=== PATIENT | female | born 1955 | race Caucasian/White ===

== ENCOUNTER 2019-12-17 13:15 | Outpatient (CLI) | payer BC, SELFPAY ==
--- NOTE | 2019-12-17 13:20 | MM_ITS ---
WS: [id number] BILATERAL DIGITAL SCREENING MAMMOGRAPHY WITH CAD CLINICAL INFORMATION: SCREENING HISTORY: Screening mammogram. No current complaints. COMPARISON: TECHNIQUE: Bilateral CC and MLO views. FINDINGS: Scattered fibroglandular densities bilaterally. No suspicious focal mass, asymmetry, calcifications, or architectural distortion. No evidence of malignancy. Vascular calcification. Punctate and lucent c entered calcifications. Secretory calcifications. MM/[id number] IMPRESSION: BI-RADS: 2-Benign FOLLOW UP: 1 Year Follow-up Recommend return to annual screening mammography.
== END 2019-12-17 13:16 | disposition home or self-care (01) ==
LOC: RADSHAW 13:19
PROVIDERS: PCP Family Medicine; Visit Provider Family Medicine
DX: Z12.31 Encounter for screening mammogram for malignant neoplasm of breast (principal)
CPT/HCPCS: 77067

== ENCOUNTER 2020-12-27 12:28 | Outpatient (CLI) | payer MEDICARE, SELFPAY ==
--- NOTE | 2020-12-27 13:14 | MM_ITS ---
WS: [id number] BILATERAL DIGITAL SCREENING MAMMOGRAPHY WITH CAD CLINICAL INFORMATION: SCREENING HISTORY: Screening mammogram. No current complaints. COMPARISON: December 17, 2019 TECHNIQUE: Bilateral CC and MLO views. FINDINGS: Scattered fibroglandular densities bilaterally. No suspicious focal mass, asymmetry, calcifications, or architectural distortion. No evidence of malignancy. Punctate and lucent centered calcifications. Secretory calcifications. MM/[id number] IMPRESSION: BI-RADS: 2-Benign FOLLOW UP: 1 Year Follow-up Recommend return to annual screening mammography.
== END 2020-12-27 12:29 | disposition home or self-care (01) ==
PROVIDERS: PCP Family Medicine; Visit Provider Family Medicine
DX: Z12.31 Encounter for screening mammogram for malignant neoplasm of breast (principal)
CPT/HCPCS: 77067

== ENCOUNTER 2021-05-02 12:46 | Outpatient (CLI) | payer MEDICARE, SELFPAY ==
--- NOTE | 2021-05-02 12:55 | CT_ITS ---
WS: [id number] CT ABDOMEN AND PELVIS WITH CONTRAST HISTORY: ENDOMETRIAL CANCER, abdominal pain. TECHNIQUE: Imaging performed of the abdomen and pelvis with IV contrast. Single phase imaging of the abdomen. Coronal and sagittal reformats are submitted. All CT scans at [facility] use at [address] one of these dose optimization techniques: automated exposure control; mA and/or kV adjustment per patient size (includes targeted exams where dose is matched to clinical indication); or iterative re construction. IV CONTRAST: Visipaque 320; 95 mL IV. Oral contrast: Yes. DLP: 1099.44 mGycm COMPARISON: 07/21/2015 Lower thorax: Very mild scattered groundglass opacifications at the lung bases. Heart is normal size. Small hiatal hernia. Liver/biliary system: Normal size liver. 3 mm hypodensity in the RIGHT lobe of the liver is too small to characterize. Gallbladder: Normal. No gallstones or wall thickening. No pericholecystic fluid. Normal portal vein. Pancreas: Normal size pancreas and pancreatic duct. No adjacent inflammation. Spleen: Normal size spleen. No mass or infarct. Adrenal glands: Normal. Right kidney: Normal. Left kidney: Normal size kidney. Cortical hypodensity upper pole. No obstruction. Aorta: Mild atherosclerosis with no aneurysm. Lymphadenopathy: Very small retroperitoneal lymph nodes. Similar to the prior examination. Free fluid: None. GI tract: Prior appendectomy. No GI tract obstruction. Mild diffuse fecal retention throughout the co kathrine. Abdominal wall: Fat containing umbilical hernia. Pelvis: Prior hysterectomy. No free fluid or adenopathy. No pelvic mass. Bones: Unremarkable. CT/CT abdomen pelvis w con* [id number] IMPRESSION: 1. No ascites or adenopathy within the abdomen or pelvis. 2. Prior hysterectomy and appendectomy. 3. Mild diffuse constipation. 4. Very mild groundglass attenuation at the lung bases probably due to pneumon itis.
[2021-05-02 14:43] LABS: Blood Urea Nitrogen 12 mg/dL (8-23); Glomerular Filtration Rate 55.6 mL/min (90-130)
[2021-05-02] MEDS: iodixanol 320 mg/mL 100mL Btl IV (15:48)
[2021-05-02] MEDS: iohexol 300 mg/mL 50 mL Btl PO (15:49)
== END 2021-05-02 12:47 | disposition home or self-care (01) ==
PROVIDERS: PCP Family Medicine; Visit Provider Family Medicine
DX: C54.1 Malignant neoplasm of endometrium (principal); R10.9 Unspecified abdominal pain; Z90.710 Acquired absence of both cervix and uterus; Q42.8 Congenital absence, atresia and stenosis of other parts of large intestine; K59.00 Constipation, unspecified
CPT/HCPCS: 74177; 82565; 84520; Q9967

== ENCOUNTER 2021-06-02 18:08 | Emergency (ER) | payer MEDICARE, SELFPAY ==
[2021-06-02 18:36] VITALS: BP 126/75; PULSE 86; RESP 20; TEMP 37.2; O2SAT 90
--- NOTE | 2021-06-02 18:53 | XRR_ITS ---
PROCEDURE INFORMATION: Exam: XR Chest Exam date and time: 06/02/2021 6:53 PM Age: 65 years old Clinical indication: Shortness of breath; Additional info: Covid+, SOB TECHNIQUE: Imaging protocol: XR of the chest. Views: 1 view. COMPARISON: CT abdomen pelvis w con* [id number] 05/02/2021 2:42 PM FINDINGS: Lungs: Patchy ground-glass opacities have developed in both lung bases, left greater than right. Calcified granuloma in the right mid lung. Pleural spaces: Unremarkable. No pleural effusion. No pneumothorax. Heart/Mediastinum: Unremarkable. No cardiomegaly. Bones/joints: Unremarkable. XR/XR chest 1V portable [id number] IMPRESSION: 1. Multilobar pneumonia, left greater than right.
--- NOTE | 2021-06-02 18:58 | W.ED.COVID ---
Documented by User: CHARISMA Packer 06/02/21 19:00 HPI - COVID General: Chief Complaint: COVID symptoms Stated Complaint: Sent from Time Seen by Provider: 06/02/21 20:13 Triage information: Has fever, cough or shortness of breath. Exposure to COVID + person last 14 days History of Present Illness: HPI Narrative: Patient with positive Covid test at home. Seen Dr. Romero's office today sent over for chest x-ray and evaluation make sure she did have pneumonia. Patient request infusion if possible. Denies any other problems. Sats have been 88 to 90% at home. COVID Results: No Data to Display Course Vital Signs: Vital signs: Vital Signs Temperature 98.9 F 06/02/21 18:36 Pulse Rate 78 06/02/21 22:53 Respiratory Rate 24 H 06/02/21 22:53 Blood Pressure 120/78 06/02/21 22:53 Pulse Oximetry 89 L 06/02/21 22:53 MDM - COVID Lab Data: Labs: Lab Results 06/02/21 06/02/21 06/02/21 21:30 21:30 22:35 WBC 6.0 10^3/uL 10^3/ uL (4.0-10.0) RBC 4.51 10^6/uL 10^6 /uL (4.1-5.3) Hgb 13.4 g/dL g/dL (11.5-15.3) Hct 40.4 % % (37.0-47.0) MCV 89.6 fl fl (81-99) MCH 29.7 pg pg (28.0-34.0) MCHC 33.2 g/dL g/dL (30.0-36.0) RDW 12.8 % % (12.1-15.1) Plt Count 154 10^3/cmm 10^3 /cmm (130-400) MPV 8.8 fL fL (7.4-10.4) Neut % (Auto) 70.1 % % Lymph % (Auto) 19.3 % % Christian % (Auto) 7.5 % % Eos % (Auto) 2.5 % % Baso % (Auto) 0.3 % % Neut # (Auto) 4.18 10^3/uL 10^3 /uL (1.8-7.7) Lymph # (Auto) 1.2 10^3/uL 10^3/ uL (0.8-4.8) Christian # (Auto) 0.5 10^3/uL 10^3/ uL (0.2-0.9) Eos # (Auto) 0.2 10^3/uL 10^3/ uL (0.0-0.8) Baso # (Auto) 0.0 10^3/uL 10^3/ uL (0.0-0.1) Nucleated RBC % (a uto) 0 % % Nucleated RBCs # 0.0 /100WBC /100W BC Sodium 131 mmol/L L mmol /L (136-145) Potassium 4.8 mmol/L mmol/L (3.5-5.1) Chloride 96 mmol/L L mmol/ L (98-107) Carbon Dioxide 19 mmol/L L mmol/ L (22-29) Anion Gap 20.8 H (5-19) BUN 26 mg/dL H mg/dL (8-23) Creatinine 1.1 mg/dL H mg/dL (0.5-0.9) GFR Calculation 49.8 mL/min L mL/ min (90-130) Glucose 176 mg/dL H mg/dL (65-115) Calculated Osmolal ity 281 mOsm/kg L mOs m/kg (285-295) Lactic Acid 1.5 mmol/L mmol/L (0.5-2.2) Calcium 8.2 mg/dL L mg/dL (8.5-10.5) Total Bilirubin 0.3 mg/dL mg/dL (0.15-1.2) AST 50 U/L H U/L (0-32) ALT 40 U/L H U/L (0-33) Alkaline Phosphata se 52 IU/L IU/L (35-105) C-Reactive Protein 88.6 mg/L H mg/L (0.0-4.9) NT-Pro-B Natriuret Pep 140 pg/mL H pg/mL (0-125) Total Protein 6.9 g/dL g/dL (6.6-8.7) Albumin 3.4 g/dL L g/dL (3.5-5.2) Globulin 3.5 g/dL g/dL (1.3-4.6) COVID Results: No Data to Display Discharge Plan Discharge Patient Disposition: Home Clinical Impression: COVID-19 Condition: Stable Prescriptions: New albuterol sulfate 90 mcg/actuation HFA aerosol inhaler 2 inh INHALATION Q6H PRN (Reason: shortness of breath or wheezing) Qty: 8 RF: 0 Discharge Orders: Discharge ED (Routine); Ordered 06/02/21 Ordered By: Joel Levine Other Ambulatory Orders: DME: Oxygen (Order) Location: None Selected Ordered By: Joel Levine Referrals: Anthony Hugo MD [Primary Care Provider] - 1-3 days Discharge Diet: Advance as tolerated Discharge Activity: Resume usual activity Patient Instructions: COVID-19 (Coronavirus Disease 2019) (ED) Coding Level of Care Code ED Dope Dry House Operator for Chg Fwd Exam Comprehensive Documented by User: Joel Levine MD 06/02/21 22:59 HPI - COVID General: Chief Complaint: COVID symptoms Stated Complaint: Sent from Time Seen by Provider: 06/02/21 20:13 History of Present Illness: HPI Narrative: 65-year-old female has had cough congestion body aches over the last week. She states she been exposed to multiple people with Covid did test positive for Covid today at her PCPs office she states she has been having increasing dyspnea along with some borderline oxygen saturations in the upper 80s on room air denies any vomiting diarrhea denies any pain. COVID 19 common symptoms: positive fever(s), chills, non-productive cough, dyspnea and body aches; negative headache(s), throat pain, nausea, vomiting or diarrhea COVID 19 other sytmptoms: negative chest pain COVID Results: No Data to Display Review of Systems Const: Reports: fever(s), chills and body aches; Denies: change in appetite Eyes: Denies: blurry vision or eye discomfort ENMT: Denies: throat pain or dental pain Card: Denies: chest pain Resp: Reports: dyspnea and non-productive cough GI: Denies: abdominal pain, nausea, vomiting or diarrhea : Denies: dysuria Musc: Denies: neck pain or back pain Skin/Breast: Denies: rash Neuro: Denies: headache(s) Psych: Denies: depression Ruddy/Lymph: Denies: easy bruising All/Imm: Denies: urticaria Physical Exam Const: COMMON NORMALS: no acute distress, patient oriented x3 and healthy appearing HENMT: COMMON NORMALS: normocephalic and atraumatic HEAD & SCALP: normocephalic and atraumatic Eye: COMMON NORMALS: Equal, round and reactive pupils present and EOMs intact bilaterally PUPIL: Yes Equal, round and reactive pupils present Neck/C-Spine: COMMON NORMALS: full ROM and supple Chest: COMMONS NORMALS: normal inspection of the chest and normal palpation of entire chest wall Resp: COMMON NORMALS: normal respiratory effort, No retractions and No use of accessory muscles AUSCULTATION: rales Cardio: COMMON NORMALS: regular rate, regular rhythm and No murmurs present (Cardio) RATE: regular rate RHYTHM: regular rhythm GI: COMMON NORMALS: Normal to inspection, nondistended, normoactive bowel sounds present, Soft to palpation, non-tender and no masses PALPATION: Yes Soft to palpation Extremity: COMMON NORMALS: normal to inspection and full ROM Neuro: COMMON NORMALS: patient oriented x3, moves all extremities and no focal motor deficits Psych: COMMON NORMALS: mental status grossly normal, Normal thought process present and cooperative THOUGHT PROCESS: Normal thought process present Skin: COMMON NORMALS: no rashes or lesions noted and no wounds GENERAL SKIN EXAM: no rashes or lesions noted Course Vital Signs: Vital signs: Vital Signs Temperature 98.9 F 06/02/21 18:36 Pulse Rate 78 06/02/21 22:53 Respiratory Rate 24 H 06/02/21 22:53 Blood Pressure 120/78 06/02/21 22:53 Pulse Oximetry 89 L 06/02/21 22:53 MDM - COVID MDM Narrative: Medical decision making narrative: Patient presents here with Covid she has been well-appearing here blood work here shows no severe findings x-ray consistent with Covid pneumonia patient's borderline on oxygen here is been right around [address] her on 2 L at home feel she is stable for discharge on home oxygen patient given Decadron here we will discharge her with an inhaler former to watch her oxygen very close as there is a very good chance that her oxygen saturations may worsen she would have to come back and be admitted she understands this Lab Data: Labs: Lab Results 06/02/21 06/02/21 06/02/21 21:30 21:30 22:35 WBC 6.0 10^3/uL 10^3/ uL (4.0-10.0) RBC 4.51 10^6/uL 10^6 /uL (4.1-5.3) Hgb 13.4 g/dL g/dL (11.5-15.3) Hct 40.4 % % (37.0-47.0) MCV 89.6 fl fl (81-99) MCH 29.7 pg pg (28.0-34.0) MCHC 33.2 g/dL g/dL (30.0-36.0) RDW 12.8 % % (12.1-15.1) Plt Count 154 10^3/cmm 10^3 /cmm (130-400) MPV 8.8 fL fL (7.4-10.4) Neut % (Auto) 70.1 % % Lymph % (Auto) 19.3 % % Christian % (Auto) 7.5 % % Eos % (Auto) 2.5 % % Baso % (Auto) 0.3 % % Neut # (Auto) 4.18 10^3/uL 10^3 /uL (1.8-7.7) Lymph # (Auto) 1.2 10^3/uL 10^3/ uL (0.8-4.8) Christian # (Auto) 0.5 10^3/uL 10^3/ uL (0.2-0.9) Eos # (Auto) 0.2 10^3/uL 10^3/ uL (0.0-0.8) Baso # (Auto) 0.0 10^3/uL 10^3/ uL (0.0-0.1) Nucleated RBC % (a uto) 0 % % Nucleated RBCs # 0.0 /100WBC /100W BC Sodium 131 mmol/L L mmol /L (136-145) Potassium 4.8 mmol/L mmol/L (3.5-5.1) Chloride 96 mmol/L L mmol/ L (98-107) Carbon Dioxide 19 mmol/L L mmol/ L (22-29) Anion Gap 20.8 H (5-19) BUN 26 mg/dL H mg/dL (8-23) Creatinine 1.1 mg/dL H mg/dL (0.5-0.9) GFR Calculation 49.8 mL/min L mL/ min (90-130) Glucose 176 mg/dL H mg/dL (65-115) Calculated Osmolal ity 281 mOsm/kg L mOs m/kg (285-295) Lactic Acid 1.5 mmol/L mmol/L (0.5-2.2) Calcium 8.2 mg/dL L mg/dL (8.5-10.5) Total Bilirubin 0.3 mg/dL mg/dL (0.15-1.2) AST 50 U/L H U/L (0-32) ALT 40 U/L H U/L (0-33) Alkaline Phosphata se 52 IU/L IU/L (35-105) C-Reactive Protein 88.6 mg/L H mg/L (0.0-4.9) NT-Pro-B Natriuret Pep 140 pg/mL H pg/mL (0-125) Total Protein 6.9 g/dL g/dL (6.6-8.7) Albumin 3.4 g/dL L g/dL (3.5-5.2) Globulin 3.5 g/dL g/dL (1.3-4.6) Imaging Data: CXR: Attestation: I personally reviewed and interpreted this imaging study as follows: Radiologist's impression: [address] [facility] [place] [address] XRay Report Signed Patient: Lay Perkins Unit #: [id number] : 1955 Age/Sex: 65 / F ADM Date: 06/02/21 Loc: ER Room/Bed: Attending Dr: Ordering Provider/Ordering MD: Myles Harper , BREAST SPLITTER- Date of Service: 06/02/21 Procedure(s): XR chest 1V portable [id number] Accession Number(s): [id number] Report Number: [id number] PROCEDURE INFORMATION: Exam: XR Chest Exam date and time: 06/02/2021 6:53 PM Age: 65 years old Clinical indication: Shortness of breath; Additional info: Covid+, SOB TECHNIQUE: Imaging protocol: XR of the chest. Views: 1 view. COMPARISON: CT abdomen pelvis w con* [id number] 05/02/2021 2:42 PM FINDINGS: Lungs: Patchy ground-glass opacities have developed in both lung bases, left greater than right. Calcified granuloma in the right mid lung. Pleural spaces: Unremarkable. No pleural effusion. No pneumothorax. Heart/Mediastinum: Unremarkable. No cardiomegaly. Bones/joints: Unremarkable. XR/XR chest 1V portable [id number] IMPRESSION: 1. Multilobar pneumonia, left greater than right. Dictated By: Isacc Gao Signed By: Isacc Gao Signed Date/Time: 06/02/212020 DD/ 52 COVID Results: No Data to Display Discharge Plan Discharge Patient Disposition: Home Clinical Impression: COVID-19 Condition: Stable Prescriptions: New albuterol sulfate 90 mcg/actuation HFA aerosol inhaler 2 inh INHALATION Q6H PRN (Reason: shortness of breath or wheezing) Qty: 8 RF: 0 Discharge Orders: Discharge ED (Routine); Ordered 06/02/21 Ordered By: Joel Levine Other Ambulatory Orders: DME: Oxygen (Order) Location: None Selected Ordered By: Joel Levine Referrals: Anthony Hugo MD [Primary Care Provider] - 1-3 days Discharge Diet: Advance as tolerated Discharge Activity: Resume usual activity Patient Instructions: COVID-19 (Coronavirus Disease 2019) (ED) Coding Level of Care Code ED Dope Dry House Operator for Chg Fwd Exam Comprehensive
[2021-06-02 20:21] VITALS: O2SAT 89
[2021-06-02 21:39] LABS: Basophils % 0.3 %; Eosinophils # 0.2 10^3/uL (0.0-0.8); Eosinophils % 2.5 %; Hematocrit 40.4 % (37.0-47.0); Hemoglobin 13.4 g/dL (11.5-15.3); Lymphocytes # 1.2 10^3/uL (0.8-4.8); Lymphocytes % 19.3 %; Mean Corpuscular HGB Conc 33.2 g/dL (30.0-36.0); Mean Corpuscular Hemoglobin 29.7 pg (28.0-34.0); Mean Corpuscular Volume 89.6 fl (81-99); Mean Platelet Volume 8.8 fL (7.4-10.4); Monocytes # 0.5 10^3/uL (0.2-0.9); Monocytes % 7.5 %; Neutrophils # 4.18 10^3/uL (1.8-7.7); Neutrophils % 70.1 %; Nucleated Red Blood Cells % 0 %; Platelet Count 154 10^3/cmm (130-400); Red Blood Count 4.51 10^6/uL (4.1-5.3); Red Cell Distribution Width 12.8 % (12.1-15.1)
[2021-06-02 21:56] LABS: Alanine Aminotransferase 40 U/L (0-33); Albumin Level 3.4 g/dL (3.5-5.2); Alkaline Phosphatase 52 IU/L (35-105); Aspartate Amino Transferase 50 U/L (0-32); Blood Urea Nitrogen 26 mg/dL (8-23); C Reactive Protein 88.6 mg/L (0.0-4.9); Calcium 8.2 mg/dL (8.5-10.5); Carbon Dioxide 19 mmol/L (22-29); Globulin 3.5 g/dL (1.3-4.6); Glomerular Filtration Rate 49.8 mL/min (90-130); Glucose 176 mg/dL (65-115); Osmolality Calculated 281 mOsm/kg (285-295); Sodium 131 mmol/L (136-145); Total Bilirubin 0.3 mg/dL (0.15-1.2); Total Protein 6.9 g/dL (6.6-8.7)
[2021-06-02 22:00] LABS: Potassium 4.8 mmol/L (3.5-5.1)
[2021-06-02] MEDS: dexamethasone 10 mg/mL INJ IVP (22:00)
[2021-06-02 22:22] LABS: NT Pro B Type Natriuretic Pept 140 pg/mL (0-125)
[2021-06-02 22:26] LABS: Anion Gap 20.8 (5-19); Chloride 96 mmol/L (98-107)
[2021-06-02 22:53] VITALS: BP 120/78; PULSE 78; RESP 24; O2SAT 89
[2021-06-02 22:54] LABS: Lactic Sepsis W/Reflex 1.5 mmol/L (0.5-2.2)
[2021-06-02 23:24] VITALS: BP 122/78; PULSE 78; RESP 16; O2SAT 98
[2021-06-03 00:39] VITALS: PULSE 76; RESP 16; O2SAT 87; O2SAT 96
[2021-06-03] MEDS: albuterol 8 gm MDI 2 PUFF INHALATION (00:39)
== END 2021-06-03 01:07 | disposition home or self-care (01) ==
PROVIDERS: Emergency Provider Emergency Medicine; PCP Family Medicine
DX: U07.1 COVID-19 (principal)
CPT/HCPCS: 71045; 80053; 83605; 83880; 85025; 86140; 94640; 96374; 99283; J1100; J3535

== ENCOUNTER 2021-06-04 12:53 | Inpatient (IN) | payer MEDICARE, SELFPAY ==
[2021-06-04] VITALS (29 sets, daily range): BP systolic 125–169; BP diastolic 63–97; PULSE 73–97; RESP 18–54; TEMP 37.2; O2SAT 75–95
--- NOTE | 2021-06-04 13:12 | XRR_ITS ---
PROCEDURE INFORMATION: Exam: XR Chest Exam date and time: 06/04/2021 1:12 PM Age: 65 years old Clinical indication: Cough; Additional info: Dyspnea TECHNIQUE: Imaging protocol: XR of the chest. Views: 1 view. COMPARISON: CR (CHEST, ) 06/02/2021 7:18 PM FINDINGS: Lungs: Increasing bilateral opacities since 06/02/2021, bilateral interstitial thickening, ground-glass opacity and partial consolidation. Pleural spaces: No definite pleural effusion. No pneumothorax. Heart/Mediastinum: Unremarkable. No cardiomegaly. Bones/joints: No acute findings. XR/XR chest 1V portable [id number] IMPRESSION: Bilateral pneumonia, increased from 06/02/2021.
--- NOTE | 2021-06-04 13:16 | ED_ITS ---
HPI - General Adult General: Chief complaint: ER Hold Stated complaint: covid +:78% O2 Time Seen by Provider: 06/04/21 13:12 History of Present Illness: HPI narrative: CC: Shortness of breath, fever and generalized weakness HPI: This is a [65] yo patient w/ hx of COVID x 1 week (test positive at home) presenting to the ED moderate respiratory distress at home. Symptoms of cough and genralized weakness x 7 days and patient was diagnosed with covid after ex posure to covid positive patients now progressively worsening symptoms. Denies chest pain, N/V, diaphoresis, exertional shortness of breath, GI or other complaints. Denies any pleuritic chest pain, recent surgery/immobilization/travel, or hematemesis or hx of VTE in the past. Patient had O2 at of 76% on 6L of NC. Onset: 7 days ago Duration: ongoing for the last 7 days Location: home Severity: moderate/severe Review of Systems Narrative: Constitutional: +subjective fever, +generalized weakness HEENT: No vision changes CV: No chest pain, no palpitations PULM: +cough, +dyspnea. GI: No abdominal pain, no N/V/D. : No dysuria MSKEL: No muscle pain SKIN: No new rashes, no lesions. NEURO: No headache, no focal weakness. HEME: No visible bruises PSYCH: Normal mood PFSH ED PFSH: Medical History (Updated 06/04/21 @ 15:33 by Fidel Delatorre MD) Endometrial cancer Hypertension Type 2 diabetes mellitus Surgical History (Updated 06/04/21 @ 15:33 by Fidel Delatorre MD) H/O bilateral salpingo-oophorectomy S/P total abdominal hysterectomy Social History (Updated 06/04/21 @ 15:36 by Fidel Delatorre MD) Smoking and tobacco status: never smoked Alcohol intake: never Substance/Drug Use: never Household members: spouse Housing: House Marital status: Physical Exam Narrative: EXAM NARRATIVE: Head: Atraumatic Eyes: PERRL, conjunctiva without injection ENT: Dry membrane moist NECK: Supple without lymphadenopathy LUNGS: +Coarse lung sounds b/l, no increased work of breathing CV: RRR ABDOMEN: Soft, nontender in all quadrants, no guarding or rebound tenderness EXTREMITY: Normal ROM SKIN: No rash or erythema NEURO: Awake and alert. No focal motor deficits. PSYCH: Normal mood and affect. Course Vital Signs: Vital signs: Vital Signs Temperature 98.5 F 06/08/21 20:00 Pulse Rate 70 06/08/21 20:00 Respiratory Rate 25 H 06/08/21 20:00 Blood Pressure 156/79 06/08/21 20:00 Pulse Oximetry 97 06/08/21 20:00 MDM - General Adult MDM Narrative: Medical decision making narrative: [65]yo patient w/ hx of DM, HTN Covia BIBA for respiratory distress. On arrival patient is satting at 76% at 6L NC w/ coarse breath sounds in lung goss. No increased work of breathing and efforts. Based on history, exam and findings, presentation most consistent with moderate/severe covid PNA requiring increasing oxygen supprot. Low suspicion for PNA, ACS, tamponade, CHF, aortic dissection. EKG: No signs of STEMI and no evidence of Brugada?s sign, delta wave, epsilon wave, significantly prolonged QTc, or malignant arrhythmia as source of exacerbation. Workup today: ECG, CBC, BMP, Troponin, BNP, CXR, covid panel Intervention: Tylenol 1gram, PO challenge, serial reassessment, oxygen, remdes ivir, decadron [2:30pm] On reassessment, the patient continues to be in moderate respiratory distress requiring high flow. HDS, AAOx3 and mentating without issues. The patient is now more comfortable on high flow at 40L at 60% without any signs of increasing fatigue. At this point, a decision was made to admit patient to the stepdown for close observation. Patient agrees with plan. Disposition: Admission for serial observation Lab Data: Labs: Lab Results 06/04/21 06/04/21 06/04/21 13:12 13:36 13:36 WBC 10.0 10^3/uL 10^3 /uL (4.0-10.0) RBC 4.77 10^6/uL 10^6 /uL (4.1-5.3) Hgb 14.3 g/dL g/dL (11.5-15.3) Hct 42.3 % % (37.0-47.0) MCV 88.7 fl fl (81-99) MCH 30.0 pg pg (28.0-34.0) MCHC 33.8 g/dL g/dL (30.0-36.0) RDW 12.8 % % (12.1-15.1) Plt Count 195 10^3/cmm 10^3 /cmm (130-400) MPV 10.5 fL H fL (7.4-10.4) Neut % (Auto) 90.0 % % Lymph % (Auto) 5.8 % % Howard % (Auto) 3.4 % % Eos % (Auto) 0.0 % % Baso % (Auto) 0.1 % % Neut # (Auto) 8.99 10^3/uL H 10 ^3/uL (1.8-7.7) Lymph # (Auto) 0.6 10^3/uL L 10^ 3/uL (0.8-4.8) Howard # (Auto) 0.3 10^3/uL 10^3/ uL (0.2-0.9) Eos # (Auto) 0.0 10^3/uL 10^3/ uL (0.0-0.8) Baso # (Auto) 0.0 10^3/uL 10^3/ uL (0.0-0.1) Nucleated RBC % (a uto) 0 % % Nucleated RBCs # 0.0 /100WBC /100W BC PT INR APTT Fibrinogen D-Dimer Specimen Type Arterial Sample Site Radial, right ABG pH 7.42 (7.35-7.45) ABG pCO2 29.5 mmHg L mmHg (35-45) ABG pO2 58.0 mmHg L mmHg (80.0-100.0) ABG HCO3 19.0 mmol/L L mmo l/L (22-26) ABG Base Excess -4.3 mmol/L L mmo l/L (-2.0-2.0) Fran Test Pos Hematocrit 41.3 % % (37-47) O2 Delivery Device Hag O2 Liters/Min 45.0 % % FiO2 75.0 % % [employer] Officer ID [place] Sodium Cancelled Potassium Cancelled Chloride Cancelled Carbon Dioxide Cancelled Anion Gap Cancelled BUN Cancelled Creatinine Cancelled GFR Calculation Cancelled Glucose Cancelled Calculated Osmolal ity Cancelled Lactic Acid Calcium Cancelled Magnesium Cancelled Iron TIBC % Saturation Unsat Iron Binding Ferritin Cancelled Total Bilirubin Cancelled AST Cancelled ALT Cancelled Alkaline Phosphata se Cancelled Lactate Dehydrogen ase Cancelled Creatine Kinase Cancelled Troponin T Gen 5 n g/L C-Reactive Protein Cancelled NT-Pro-B Natriuret Pep Cancelled Total Protein Cancelled Albumin Cancelled Globulin Cancelled Interleukin 6 Procalcitonin Cancelled [facility] 06/04/21 06/04/21 06/04/21 13:36 13:36 13:36 WBC RBC Hgb Hct MCV MCH MCHC RDW Plt Count MPV Neut % (Auto) Lymph % (Auto) Howard % (Auto) Eos % (Auto) Baso % (Auto) Neut # (Auto) Lymph # (Auto) Howard # (Auto) Eos # (Auto) Baso # (Auto) Nucleated RBC % (a uto) Nucleated RBCs # PT INR APTT Fibrinogen D-Dimer Specimen Type Sample Site ABG pH ABG pCO2 ABG pO2 ABG HCO3 ABG Base Excess Fran Test Hematocrit O2 Delivery Device O2 Liters/Min FiO2 [employer] Officer ID Sodium Potassium Chloride Carbon Dioxide Anion Gap BUN Creatinine GFR Calculation Glucose Calculated Osmolal ity Lactic Acid Cancelled Calcium Magnesium Iron TIBC % Saturation Unsat Iron Binding Ferritin Total Bilirubin AST ALT Alkaline Phosphata se Lactate Dehydrogen ase Creatine Kinase Troponin T Gen 5 n g/L Cancelled C-Reactive Protein NT-Pro-B Natriuret Pep Total Protein Albumin Globulin Interleukin 6 Cancelled Procalcitonin [facility] 06/04/21 06/04/21 06/04/21 14:05 14:05 14:05 WBC RBC Hgb Hct MCV MCH MCHC RDW Plt Count MPV Neut % (Auto) Lymph % (Auto) Howard % (Auto) Eos % (Auto) Baso % (Auto) Neut # (Auto) Lymph # (Auto) Howard # (Auto) Eos # (Auto) Baso # (Auto) Nucleated RBC % (a uto) Nucleated RBCs # PT 13.00 SECONDS SEC ONDS (12.1-14.9) INR 0.95 (0.8-1.2) APTT 26.5 SECONDS SECO NDS (23.9-36.7) Fibrinogen 579 mg/dL H mg/dL (174-498) D-Dimer 1.74 ug/mIFEU H u g/mIFEU (0-0.59) Specimen Type Sample Site ABG pH ABG pCO2 ABG pO2 ABG HCO3 ABG Base Excess Fran Test Hematocrit O2 Delivery Device O2 Liters/Min FiO2 [employer] Officer ID Sodium Potassium Chloride Carbon Dioxide Anion Gap BUN Creatinine GFR Calculation Glucose Calculated Osmolal ity Lactic Acid 2.4 mmol/L H mmol /L (0.5-2.2) Calcium Magnesium Iron TIBC % Saturation Unsat Iron Binding Ferritin Total Bilirubin AST ALT Alkaline Phosphata se Lactate Dehydrogen ase Creatine Kinase Troponin T Gen 5 n g/L 12 ng/L H ng/L (0-10) C-Reactive Protein NT-Pro-B Natriuret Pep Total Protein Albumin Globulin Interleukin 6 Procalcitonin TSH 06/04/21 06/04/21 14:05 14:05 WBC RBC Hgb Hct MCV MCH MCHC RDW Plt Count MPV Neut % (Auto) Lymph % (Auto) Howard % (Auto) Eos % (Auto) Baso % (Auto) Neut # (Auto) Lymph # (Auto) Howard # (Auto) Eos # (Auto) Baso # (Auto) Nucleated RBC % (a uto) Nucleated RBCs # PT INR APTT Fibrinogen D-Dimer Specimen Type Sample Site ABG pH ABG pCO2 ABG pO2 ABG HCO3 ABG Base Excess Fran Test Hematocrit O2 Delivery Device O2 Liters/Min FiO2 [employer] Officer ID Sodium 130 mmol/L L mmol /L (136-145) Potassium 4.7 mmol/L mmol/L (3.5-5.1) Chloride 95 mmol/L L mmol/ L (98-107) Carbon Dioxide 16 mmol/L L mmol/ L (22-29) Anion Gap 23.7 H (5-19) BUN 32 mg/dL H mg/dL (8-23) Creatinine 1.2 mg/dL H mg/dL (0.5-0.9) GFR Calculation 45.1 mL/min L mL/ min (90-130) Glucose 428 mg/dL H mg/dL (65-115) Calculated Osmolal ity 295 mOsm/kg mOsm/ kg (285-295) Lactic Acid Calcium 8.6 mg/dL mg/dL (8.5-10.5) Magnesium 2.3 mg/dL mg/dL (1.7-2.3) Iron 29 ug/dL L ug/dL (37-145) TIBC 238 mcg/dl mcg/dl % Saturation 12.1 % L % (20-50) Unsat Iron Binding 209 ug/dL ug/dL (112-347) Ferritin 2573 ng/mL H ng/m L (15-150) Total Bilirubin 0.4 mg/dL mg/dL (0.15-1.2) AST 37 U/L H U/L (0-32) ALT 31 U/L U/L (0-33) Alkaline Phosphata se 58 IU/L IU/L (35-105) Lactate Dehydrogen ase 437 U/L H U/L (135-214) Creatine Kinase 231 U/L H U/L (26-192) Troponin T Gen 5 n g/L C-Reactive Protein 57.3 mg/L H mg/L (0.0-4.9) NT-Pro-B Natriuret Pep 468 pg/mL H pg/mL (0-125) Total Protein 6.5 g/dL L g/dL (6.6-8.7) Albumin 3.4 g/dL L g/dL (3.5-5.2) Globulin 3.1 g/dL g/dL (1.3-4.6) Interleukin 6 Procalcitonin 0.22 ng/mL ng/mL (0-0.5) TSH 0.39 uIU/mL uIU/m L (0.27-4.20) Imaging Data^: Other Imaging: Radiologist's impression: [address] [id number] Scan ReportSigned Patient: Lay Perkins #: [id number]: 6Acct#:[id number]/Sex: 65 / FADM Date: 06/04/21Loc: ERRoom/Bed:Attending Dr: Ordering Provider/Ordering MD: Jerrell Montero MD Date of Service: 06/04/21 Procedure(s): CT angio chest PE protcl [id number] Accession Number(s): [id number] Report Number: [id number] PROCEDURE INFORMATION: Exam: CTA Chest With Contrast Exam date and time: 06/04/2021 1:14 PM Age: 65 years old Clinical indication: Cough and dyspnea and shortness of breath and other: Low 02 / covid +; Additional info: Covid pna TECHNIQUE: Imaging protocol: Computed tomographic angiography of the chest with contrast. 3D rendering (Not supervised by radiologist): MIP and/or 3D reconstructed images were created by the technologist. Radiation optimization: All CT scans at this facility use at least one of these dose optimization techniques: automated exposure control; mA and/or kV adjustment per patient size (includes targeted exams where dose is matched to clinical indication); or iterative reconstruction. Contrast material: VISI 320; Contrast volume: 95 ml; Contrast route: INTRAVENOUS (IV); COMPARISON: CR (CHEST, ) 06/04/2021 1:50 PM RADIATION DOSE METRICS: Total DLP (mGy-cm): 1059.21 FINDINGS: Pulmonary arteries: No pulmonary emboli. Aorta: No aortic aneurysm. No aortic dissection. Lungs: Bilateral multifocal interstitial thickening, ground-glass opacity and minimal partial consolidation. No obstructing central endobronchial lesion. No mass. Pleural spaces: Unremarkable. No pneumothorax. No pleural effusion. Heart: No cardiomegaly. No pericardial effusion. Lymph nodes: No significant adenopathy. Bones/joints: No acute findings. Soft tissues: Unremarkable. CT/CT angio chest PE protcl [id number] IMPRESSION: Bilateral pneumonia consistent with COVID-19 pneumonia. Dictated By:Christopher Curtis MDSigned By:Christopher Curtis MDSigned Date/Time:06/04/21 1500DD/ 1314 Discharge Plan Discharge Patient Disposition: Admitted As Inpatient Admit Provider: Fidel Delatorre Clinical Impression: COVID-19, COVID, Acute hypoxemic respiratory failure Condition: Stable Coding Level of Care Code ED Unbundler for Rosario Zuniga
[2021-06-04] MEDS: dexamethasone 4 mg/mL INJ 6 MG IVP ×2 (13:35→17:10)
[2021-06-04 13:54] LABS: Basophils % 0.1 %; Hematocrit 42.3 % (37.0-47.0); Hemoglobin 14.3 g/dL (11.5-15.3); Lymphocytes # 0.6 10^3/uL (0.8-4.8); Lymphocytes % 5.8 %; Mean Corpuscular HGB Conc 33.8 g/dL (30.0-36.0); Mean Corpuscular Volume 88.7 fl (81-99); Mean Platelet Volume 10.5 fL (7.4-10.4); Monocytes # 0.3 10^3/uL (0.2-0.9); Monocytes % 3.4 %; Neutrophils # 8.99 10^3/uL (1.8-7.7); Nucleated Red Blood Cells % 0 %; Platelet Count 195 10^3/cmm (130-400); Red Blood Count 4.77 10^6/uL (4.1-5.3); Red Cell Distribution Width 12.8 % (12.1-15.1)
[2021-06-04] MEDS: remdesivir 200 MG in sodium chloride 0.9% (100 ml) 60 ML 100 MG IV (14:04)
[2021-06-04 14:34] LABS: INR 0.95 (0.8-1.2)
[2021-06-04 14:35] LABS: Partial Thromboplastin Time 26.5 SECONDS (23.9-36.7)
[2021-06-04 14:36] LABS: Fibrinogen 579 mg/dL (174-498)
[2021-06-04 14:38] LABS: D Dimer 1.74 ug/mIFEU (0-0.59)
[2021-06-04] MEDS: iodixanol 320 mg/mL 100mL Btl IV (14:41)
[2021-06-04 14:56] LABS: Lactic Sepsis W/Reflex 2.4 mmol/L (0.5-2.2)
[2021-06-04 14:58] LABS: Troponin T (5th) Once 12 ng/L (0-10)
[2021-06-04 15:04] LABS: ABG PCO2 29.5 mmHg (35-45); ABG PH Result 7.42 (7.35-7.45); Arterial Blood Gas Hematocrit 41.3 % (37-47); Base Excess ABG -4.3 mmol/L (-2.0-2.0); Blood Gas Allen Test Pos; Blood Gas Sample Type Arterial
[2021-06-04 15:05] LABS: Blood Gas Operator Identificat MONRO; Blood Gas Sample Site Radial, right; Oxygen Device HAG
[2021-06-04 15:08] LABS: NT Pro B Type Natriuretic Pept 468 pg/mL (0-125); Procalcitonin 0.22 ng/mL (0-0.5); Thyroid Stimulating Hormone 0.39 uIU/mL (0.27-4.20)
[2021-06-04 15:20] LABS: Alanine Aminotransferase 31 U/L (0-33); Albumin Level 3.4 g/dL (3.5-5.2); Alkaline Phosphatase 58 IU/L (35-105); Anion Gap 23.7 (5-19); Aspartate Amino Transferase 37 U/L (0-32); Blood Urea Nitrogen 32 mg/dL (8-23); C Reactive Protein 57.3 mg/L (0.0-4.9); Calcium 8.6 mg/dL (8.5-10.5); Carbon Dioxide 16 mmol/L (22-29); Chloride 95 mmol/L (98-107); Creatine Phosphokinase 231 U/L (26-192); Globulin 3.1 g/dL (1.3-4.6); Glomerular Filtration Rate 45.1 mL/min (90-130); Glucose 428 mg/dL (65-115); Lactate Dehydrogenase 437 U/L (135-214); Magnesium 2.3 mg/dL (1.7-2.3); Osmolality Calculated 295 mOsm/kg (285-295); Potassium 4.7 mmol/L (3.5-5.1); Sodium 130 mmol/L (136-145); Total Bilirubin 0.4 mg/dL (0.15-1.2); Total Protein 6.5 g/dL (6.6-8.7)
--- NOTE | 2021-06-04 15:29 | P.HP_ITS ---
Providers/Chief Complaint Primary Care Provider: Anthony Hugo MD Chief Complaint: covid +:78% O2 History of Present Illness Lay Perkins is a 65 year old female with past medical history of type 2 diabetes mellitus, hypertension, remote history of endometrial cancer presented to the ER with history of feeling Covid-like symptoms with myalgia, cough, difficulty in breathing for about 10 days. Patient was in ER 2 days ago and was tested positive for COVID-19 and was sent home on oral dexamethasone and nasal cannula. Today she presents back with worsening hypoxia and saturations in high 70s on 6 L. Review of Systems General: Reports: 10 or more systems reviewed and unremarkable except in HPI and below Const: Denies: fever(s), chills, body aches, change in appetite, change in weight, malaise, night sweats, diaphoresis, change in sleep pattern, daytime sleepiness or snoring Eyes: Denies: change in vision, blurry vision, photophobia, eye discomfort or eye discharge ENMT: Denies: throat pain, enlarged tonsils, hoarseness, mouth pain, oral sores, dry mouth, tinnitus, nasal congestion or post nasal drip Card: Denies: chest pain, palpitations, irregular heart rhythm, edema, swelling of feet/ankles, lightheadedness, syncope, pre-syncope, dyspnea on exertion, orthopnea, leg pain with exertion or acrocyanosis Resp: Denies: dyspnea, productive cough, non-productive cough, wheezing, stridor, pain on inspiration, change in phlegm color, hemoptysis or chest congestion GI: Denies: abdominal pain, nausea, vomiting, hematemesis, coffee ground emesis, dysphagia, heartburn, diarrhea, constipation, bloating, GI cramping, change in bowel habits, pain on defecation, hematochezia or melena : Denies: flank pain, dysuria, urinary frequency, urinary urgency, urinary hesitancy, nocturia or hematuria Musc: Denies: neck pain, back pain, extremity pain, joint pain, joint swelling, joint redness, joint stiffness or limited range of motion Neuro: Denies: headache(s), numbness in extremities, weakness in extremities, sensory changes, lack of coordination, difficulty walking, frequent falls, dizziness, vertigo, confusion, Slurred speech present, difficulty communicating thoughts or seizure-like activity Psych: Denies: anxiety, depression, mood swings, panic attacks, hopelessness or irritability Endo: Denies: polyuria, polydipsia, tired all the time, cold intolerance, excessive sweating, flushing or heat intolerance Ruddy/Lymph: Denies: easy bruising or easy bleeding All/Imm: Denies: tongue swelling, facial swelling or acute wheezing Medications/Allergies Home Medications Medication Instructions Recorded Confirmed Last Taken Type albuterol sulfate 2 inh INHALATION Q6H PRN #8 gm 06/02/21 06/04/21 Unknown Rx azithromycin See Rx Instructions .ROUTE .COMPLEX 06/04/21 06/04/21 06/04/21 History dexamethasone 6 mg PO DAILY 06/04/21 06/04/21 06/04/21 History glimepiride 4 mg PO BID 06/04/21 06/04/21 06/04/21 History insulin glargine [Lantus U-100 30 unit SUBCUT DAILY 06/04/21 06/04/21 06/04/21 History Insulin] levothyroxine 88 mcg PO DAILY 06/04/21 06/04/21 06/04/21 History lisinopril 10 mg PO DAILY 06/04/21 06/04/21 06/04/21 History Allergies Allergy/AdvReac Type Severity Reaction Status Date / Time neomycin Allergy Unknown Verified 06/04/21 13:17 PFSH Acute PFSH: Medical History (Updated 06/04/21 @ 15:33 by Fidel Delatorre MD) Endometrial cancer Hypertension Type 2 diabetes mellitus Surgical History (Updated 06/04/21 @ 15:33 by Fidel Delatorre MD) H/O bilateral salpingo-oophorectomy S/P total abdominal hysterectomy Social History (Updated 06/04/21 @ 15:36 by Fidel Delatorre MD) Smoking and tobacco status: never smoked Alcohol intake: never Substance/Drug Use: never Household members: spouse Housing: House Marital status: Vitals/I&O/Wt Last Vital Signs Temp 98.9 F 06/04/21 13:14 Pulse 88 06/04/21 15:01 Resp 30 H 06/04/21 15:01 BP 169/80 06/04/21 13:17 Pulse Ox 94 06/04/21 15:01 Physical Exam Narrative: EXAM NARRATIVE: General: In acute distress because of hypoxia, tachypneic, AOx3, bilateral lower limb swellings HEENT: PERRLA, pupils bilaterally equal and reactive Chest: Bilateral bronchial breath sounds, coarse crackles present bilaterally, equal good air entry bilaterally CVS: S1-S2 regular, no murmurs, no tachycardia, no gallops, no rubs Abdomen: Soft, nontender, no organomegaly, bowel sounds present Neuro: No focal deficits, no facial deformity, AO x3, power 5/5 in all limbs Data : 06/04/21 13:36 06/04/21 14:05 A&P Assessment and plan (1) Acute hypoxemic respiratory failure: Status: Acute (2) COVID-19: Status: Acute (3) Hypertension: Status: Acute (4) Type 2 diabetes mellitus: Status: Acute Additional A&P Information Hypoxia secondary to COVID-19 pneumonia: Severe disease. Currently on heated high flow. Oxygen supplementation keeping saturation over 88%. Dexamethasone 6 mg daily. Remdesivir to finish a 5-day course. Vitamin C, zinc. DuoNebs every 4 hour, budesonide twice daily Pulmonary toilet with incentive spirometry flutter valve. We will monitor inflammatory markers including CRP, D-dimer every 48 hourly. If getting elevated will dose Actemra. Patient was made aware of the same and he has given verbal consent. D-dimer elevated. CTA negative for pulmonary embolism. For now we will start patient on full dose anticoagulation Eliquis 5 mg twice daily. Will monitor for anemia or blood loss. Check procalcitonin, sputum culture, MRSA swab, urine Legionella, bacterial antigen, blood culture. Low suspicion for bacterial infection. For now start patient on oral azithromycin, IV ceftriaxone for 5-day course. Given hypoxia will try to keep patient as negative as possible. Check echocardiogram. IV Lasix 40 mg once. Clement catheterization. Fluid restriction up to 1500 cc. Strict input output charting, daily weights. Hypertension: Goal blood pressure less than 140/90 mmHg. Type 2 diabetes mellitus: Check HbA1c. Continue with home dose of Lantus 30 units at bedtime, start on insulin sliding scale at high-dose protocol. Carb consistent soft mechanical diet. Famotidine for PUD prophylaxis Eliquis for DVT prophylaxis. CODE STATUS: Discussed in detail with patient at bedside. She would want to be full code. Would want to try to avoid intubation as much as possible. Admit to ICU. Attestations Medical Necessity Statement*: Admission for more than 2 midnights for management of hypoxic respiratory failure secondary to COVID-19. Time Spent in Patient Care: Greater than 35 minutes (>than 50% of time spent in counselling and/or direct pt care on unit) . Coding Level of Care Code Acute Supervisor [place] for [facility] Diagnoses Acute hypoxemic respiratory failure J96.01 COVID-19 U07.1 Hypertension I10 Type 2 diabetes mellitus E11.9
[2021-06-04 15:47] LABS: Ferritin 2573 ng/mL (15-150)
[2021-06-04] MEDS: ipratropium-albuterol 3 mL Neb INHALATION ×3 (16:02→22:53)
[2021-06-04 16:05] LABS: Reflex Lactate Order REFLEX LACTIC ORDERD
[2021-06-04] MEDS: benzonatate 100 mg Capsule PO (17:10)
[2021-06-04] MEDS: FUROsemide 10 mg/mL SDV 4mL 40 MG IVP (17:10)
[2021-06-04] MEDS: cefTRIAXone 1,000 MG in sodium chloride 0.9% (plus) 50 ML 100 MG IV (17:10)
[2021-06-04] MEDS: famotidine 20 mg/2 mL INJ IVP (17:10)
[2021-06-04 17:11] LABS: Iron 29 ug/dL (37-145); Percent Saturation 12.1 % (20-50); Total Iron Binding Capacity 238 mcg/dl; Unsaturated Iron Binding 209 ug/dL (112-347)
[2021-06-04 17:30] LABS: Lactic Acid level (Lactate) 1.9 mmol/L (0.5-2.2)
[2021-06-04 17:50] LABS: Add Urine Microscopic? YES; Bilirubin Urine Neg (Negative); Blood Urine 3+ (Negative); Glucose Urine UA 4+ (Normal); Ketones Urine Negative (Negative); Leukocyte Esterase Urine Negative (Negative); Nitrate Urine Negative (Negative); Protein Urine Trace (Negative); Urine Appearance Clear (CLEAR); Urine Color Straw (Yellow); Urobilinogen Urine Norm (Negative); pH Urine 5 (5-7)
[2021-06-04 17:51] LABS: Add Urine Culture? No; Bacteria Urine TRACE /hpf; RBC Urine 0-4 /hpf (0-2); Squamous Epithelial Cell Urine RARE /hpf (0-5); WBC Urine 0-4 /hpf (0-5)
[2021-06-04] MEDS: ferrous gluconate 324 mg Tablet PO (19:37)
[2021-06-04] MEDS: ascorbic acid 500 mg Tablet 1000 MG PO (19:37)
[2021-06-04] MEDS: budesonide 0.5 mg/2 mL Neb INHALATION (20:08)
[2021-06-04 20:35] LABS: Potassium, Radom Urine 23 mmol/L; Urine Random Chloride 33 mmol/L; Urine Random Sodium 43 mmol/L
[2021-06-04 21:16] LABS: Glucose Point of Care 382 mg/dL (70-110)
[2021-06-04] MEDS: insulin lispro 100 unit/1 mL SUBCUT (21:21)
[2021-06-04] MEDS: apixaban 5 mg Tablet PO (21:21)
[2021-06-04 21:59] LABS: Influenza A by IFA Negative (Negative); Influenza B by IFA Negative (Negative)
[2021-06-05] VITALS (98 sets, daily range): BP systolic 109–162; BP diastolic 49–95; PULSE 60–94; RESP 13–53; TEMP 36.6–37.3; O2SAT 84–97
[2021-06-05] MEDS: ipratropium-albuterol 3 mL Neb INHALATION ×6 (02:56→23:03)
[2021-06-05] MEDS: famotidine 20 mg/2 mL INJ IVP ×2 (03:00→16:55)
[2021-06-05 03:48] LABS: Hematocrit 40.5 % (37.0-47.0); Hemoglobin 13.6 g/dL (11.5-15.3); Lymphocytes # 0.6 10^3/uL (0.8-4.8); Lymphocytes % 7.8 %; Mean Corpuscular HGB Conc 33.6 g/dL (30.0-36.0); Mean Corpuscular Hemoglobin 29.6 pg (28.0-34.0); Mean Corpuscular Volume 88.2 fl (81-99); Mean Platelet Volume 9.1 fL (7.4-10.4); Monocytes # 0.4 10^3/uL (0.2-0.9); Monocytes % 4.4 %; Neutrophils # 7.02 10^3/uL (1.8-7.7); Neutrophils % 86.8 %; Nucleated Red Blood Cells % 0 %; Platelet Count 226 10^3/cmm (130-400); Red Blood Count 4.59 10^6/uL (4.1-5.3); Red Cell Distribution Width 12.8 % (12.1-15.1); White Blood Count 8.1 10^3/uL (4.0-10.0)
[2021-06-05 04:08] LABS: D Dimer 1.44 ug/mIFEU (0-0.59)
[2021-06-05 04:09] LABS: Alanine Aminotransferase 28 U/L (0-33); Albumin Level 3.2 g/dL (3.5-5.2); Alkaline Phosphatase 57 IU/L (35-105); Anion Gap 21.7 (5-19); Aspartate Amino Transferase 36 U/L (0-32); Blood Urea Nitrogen 31 mg/dL (8-23); C Reactive Protein 110.3 mg/L (0.0-4.9); Calcium 8.7 mg/dL (8.5-10.5); Carbon Dioxide 20 mmol/L (22-29); Chloride 97 mmol/L (98-107); Chol HDL Ratio 3.35 mg/dL (0.0-4.40); Cholesterol 161 mg/dL (0-200); Globulin 3.3 g/dL (1.3-4.6); Glomerular Filtration Rate 41.1 mL/min (90-130); Glucose 312 mg/dL (65-115); HDL Cholesterol 48 mg/dL (60-100); LDL Cholesterol Calculated 91 mg/dL (50-129); Osmolality Calculated 296 mOsm/kg (285-295); Potassium 4.7 mmol/L (3.5-5.1); Sodium 134 mmol/L (136-145); Total Bilirubin 0.3 mg/dL (0.15-1.2); Total Protein 6.5 g/dL (6.6-8.7); Triglycerides 112 mg/dL (0-150); VLDL Cholestrol Calculation 22 mg/dL (0-30)
[2021-06-05 04:10] LABS: Estmated Average Glucose 240
[2021-06-05] MEDS: remdesivir 100 MG in sodium chloride 0.9% (100 ml) 100 ML IV (05:30)
--- NOTE | 2021-06-05 06:00 | XRR_ITS ---
PROCEDURE INFORMATION: Exam: XR Chest Exam date and time: 06/05/2021 6:00 AM Age: 65 years old Clinical indication: Shortness of breath; Patient HX: F/u for covid pneumonia. TECHNIQUE: Imaging protocol: XR of the chest. Views: 1 view. Total images: 1 COMPARISON: CR (CHEST, ) 06/04/2021 1:50 PM FINDINGS: Lungs: Bilateral pulmonary opacities are again noted and appear unchanged. Pleural spaces: Unremarkable. No pleural effusion. No pneumothorax. Heart/Mediastinum: Heart size is stable when compared to the prior exam. Bones/joints: Osseous structures are unchanged from the prior exam. XR/XR chest 1V portable [id number] IMPRESSION: Bilateral pulmonary opacities are again noted and appear unchanged.
[2021-06-05 07:46] LABS: Glucose Point of Care 274 mg/dL (70-110)
[2021-06-05] MEDS: insulin lispro 100 unit/1 mL SUBCUT ×3 (07:57→23:41)
[2021-06-05] MEDS: insulin glargine 100 units/1 mL 30 UNIT SUBCUT ×2 (07:59→18:21)
[2021-06-05] MEDS: apixaban 5 mg Tablet PO ×2 (08:00→21:55)
[2021-06-05] MEDS: zinc gluconate 50 mg Tablet PO (08:00)
[2021-06-05] MEDS: ascorbic acid 500 mg Tablet 1000 MG PO (08:00)
[2021-06-05] MEDS: levothyroxine 88 mcg Tablet PO (08:00)
[2021-06-05] MEDS: ferrous gluconate 324 mg Tablet PO (08:00)
[2021-06-05] MEDS: benzonatate 100 mg Capsule PO (08:00)
[2021-06-05] MEDS: budesonide 0.5 mg/2 mL Neb INHALATION ×2 (10:33→20:02)
[2021-06-05] MEDS: tocilizumab 400 MG, tocilizumab 200 MG, tocilizumab 70 MG in sodium chloride 0.9% (100 ... 100 MG IV (11:10)
[2021-06-05] MEDS: sodium chloride 0.9% 1,000 ML 75 ML IV (11:13)
[2021-06-05] MEDS: guaiFENesin-dextromethorphan UDC 10 mL 5 ML PO ×3 (11:13→21:54)
[2021-06-05 11:24] LABS: Glucose Point of Care 210 mg/dL (70-110)
--- NOTE | 2021-06-05 11:55 | PM.PN ---
Subjective Subjective: Interval history: Overnight patient has stayed on high oxygen supplementation. Currently on 50 L 80% saturating 92%. Discussed in detail with the patient for need to be in proning to semiprone position. Encouraged her to work more with I-S and Acapella. Patient complaining of cough. Appetite poor as per the nurse. Net 1100 cc output since admission Vitals/I&O/Wt Last Vital Signs Temp 98.7 F 06/05/21 07:33 Pulse 70 06/05/21 10:48 Resp 24 H 06/05/21 10:48 BP 119/82 06/05/21 07:33 Pulse Ox 91 06/05/21 10:48 06/04/21 06/05/21 06/05/21 22:59 06:59 14:59 Intake Total 50 / 110 Output Total 1100 / 1100 550 / 1650 Balance -1050 / -990 -550 / -1540 Weight last 48 hrs Weight 84.368 kg Weight 83.96 kg Physical Exam Narrative: EXAM NARRATIVE: General: In acute distress because of hypoxia, tachypneic, AOx3, bilateral lower limb swellings HEENT: PERRLA, pupils bilaterally equal and reactive Chest: Bilateral bronchial breath sounds, coarse crackles present bilaterally, equal good air entry bilaterally CVS: S1-S2 regular, no murmurs, no tachycardia, no gallops, no rubs Abdomen: Soft, nontender, no organomegaly, bowel sounds present Neuro: No focal deficits, no facial deformity, AO x3, power 5/5 in all limbs Urinary Catheter Management^: Clement: Cath Placed During This Visit: yes Reason for Continuing Indwelling Catheter: Accurate Measurement of Urinary Output in Critically Ill Patients Urinary Catheter Date of Insertion: 06/04/21 Urinary Catheter Time of Insertion: 20:30 Data : 06/05/21 02:50 06/05/21 02:50 Micro: Microbiology 06/04/21 21:30 MRSA Culture - Final Nose 06/04/21 17:27 Bacterial Antigens - Final Urine Kidney 06/04/21 17:27 Legionella Urinary Antigen - Final Urine,Clean Catch 06/04/21 16:48 Blood Culture - Preliminary Blood SPECIMEN COLLECTED 06/04/21 16:51 Blood Culture - Preliminary Blood SPECIMEN COLLECTED A&P Assessment and plan (1) Acute hypoxemic respiratory failure: Status: Acute (2) COVID-19: Status: Acute (3) Hypertension: Status: Acute (4) Type 2 diabetes mellitus: Status: Acute Additional A&P Information Hypoxic respiratory failure secondary to COVID-19 pneumonia: Severe disease. Currently on heated high flow. Oxygen supplementation keeping saturation over 88%. Dexamethasone 6 mg daily. Remdesivir to finish a 5-day course. Vitamin C, zinc. DuoNebs every 4 hour, budesonide twice daily Pulmonary toilet with incentive spirometry flutter valve. We will monitor inflammatory markers including CRP and D-dimer every 48 hourly. CRP worsening today. Will give 1 dose of Actemra today. We will continue to monitor inflammatory markers. D-dimer elevated. CTA negative for pulmonary embolism. For now we will continue on full dose anticoagulation Eliquis 5 mg twice daily. Will monitor for anemia or blood loss. Pro-Grady negative, MRSA swab, urine Legionella bacterial antigen negative. Blood cultures so far negative. Low suspicion for bacterial infection. For now start patient on oral azithromycin, IV ceftriaxone for 5-day course. Echocardiogram shows an EF 55% with no regional wall motion abnormality, trace TR, trivial pericardial effusion. Patient developing mild PRIMITIVO today. Hold off on any further diuresis. Seems next 1100 -. Clinically dehydrated. Start on gentle IV hydration with normal saline at 75 cc/h for 1 bag while monitoring for fluid overload. Strict input output charting, daily weights. Hypertension: Goal blood pressure less than 140/90 mmHg. Type 2 diabetes mellitus: Uncontrolled diabetes: A1c 10. Check serum ketones. Insulin sliding scale at high-dose protocol every 6 hours, increase Lantus to 30 units twice daily. Acute kidney injury: Secondary to severe disease along with uncontrolled hyperglycemia on lisinopril at home. Start on gentle IV hydration with normal saline as above. Monitor BMP daily. Carb consistent soft mechanical diet. Famotidine for PUD prophylaxis Eliquis for DVT prophylaxis. CODE STATUS: Discussed in detail with patient at bedside. She would want to be full code. Would want to try to avoid intubation as much as possible. Guarded prognosis. High susceptibility intubation. Attestations Medical Necessity Statement*: Requires further hospitalization for management of hypoxic respiratory failure secondary to COVID-19 pneumonia, uncontrolled hypertension Critical Care Time: The high probability of a clinically significant, sudden or life threatening deterioration of the patient's [respiratory] system(s) required my full and direct attention, intervention and personal management. The critical care time is as shown. This time is in addition to time spent performing any reported procedures but includes the following: [x] Data and vital sign review and interpretation [x] Patient assessment, examination and intervention [x] Documentation [x] Medication orders and management Critical Care Time (min): 80 Coding Level of Care Code Acute Clinical Nursing Coordinator for [facility] Diagnoses Acute hypoxemic respiratory failure J96.01 COVID-19 U07.1 Hypertension I10 Type 2 diabetes mellitus E11.9
[2021-06-05] MEDS: azithromycin 250 mg Tablet 500 MG PO (14:11)
[2021-06-05] MEDS: benzonatate 100 mg Capsule 200 MG PO ×2 (14:27→21:55)
--- NOTE | 2021-06-05 15:15 | USCV_ITS ---
Lay Perkins Age: 65 Gender: F : 1955 Exam Date: 06/05/2021 07:30 Ordering Phys: Fidel Delatorre MD Technologist: Ruthann Chandler Exam Location: [facility] [place] Indication: COVID CHF CA BP: 123 / 73 HR: 68 Rhythm: Sinus Technical Quality: Fair MEASUREMENTS (Male / Female) Normal Values 2D ECHO LV Diastolic Diameter PLAX 5.1 cm 4.2 - 5.9 / 3.9 - 5.3 cm LV Systolic Diameter PLAX 3.8 cm LV Chamber Size 3.5 cm IVS Diastolic Thickness 0.8 cm 0.6 - 1.0 / 0.6 - 0.9 cm IVS Systolic Thickness 1.2 cm LVPW Diastolic Thickness 1.1 cm 0.6 - 1.0 / 0.6 - 0.9 cm LVPW Systolic Thickness 1.5 cm RV Chamber Size 2.8 cm LVOT Diameter 2.0 cm LV Ejection Fraction 2D Teich 50.6 % LV Ejection Fraction MOD 2C 57.3 % LV Ejection Fraction 2C AL 56.5 % LA Diameter 3.5 cm LA Width 2.8 cm LA Height 3.5 cm RA Width 3.0 cm RA Height 3.9 cm Aorta at Sinotubular Diameter 2.8 cm M-MODE Aortic Annulus Diameter 3.3 cm LA Ao Ratio MM 1.3 MV E Point Septal Separation 0.6 cm DOPPLER AV Peak Velocity 120.0 cm/s LVOT Peak Velocity 84.0 cm/s AV Area Cont Eq vti 2.4 cm squared AV Area Cont Eq pk 2.3 cm squared MV Area PHT 3.3 cm squared Mitral E to A Ratio 1.2 MV E' Velocity 45.0 cm/s Mitral E to MV E' Ratio 8.3 Mitral E to LV E' Lateral Ratio 8.6 Mitral E to LV E' Septal Ratio 8.0 TR Peak Velocity 121.5 cm/s TR Peak Gradient 5.9 mmHg TR Mean Velocity 79.9 cm/s TR Mean Gradient 3.1 mmHg TR Velocity Time Integral 26.3 cm TV Peak E Velocity 53.0 cm/s Right Atrial Pressure 8.0 mmHg Pulmonary Artery Systolic Pressu 13.9 mmHg PV Peak Velocity 70.0 cm/s RV Acceleration Time 0.1 s RV Ejection Time 0.4 s RV AcT/ET 0.3 FINDINGS Left Ventricle Normal left ventricular size and systolic function, EF 55 %. No regional wall motion abnormalities. Right Ventricle The right ventricle is normal in size and function. Right Atrium The right atrium is normal in size. Left Atrium The left atrium is normal in size. Mitral Valve No gross abnormalities noted Aortic Valve No gross abnormalities noted Tricuspid Valve Trace tricuspid valve regurgitation. Pulmonic Valve Pulmonic valve not well visualized. Pericardium Trivial pericardial effusion. Aorta Normal ascending aorta dimension. CONCLUSIONS Normal left ventricular size and systolic function, EF 55 %. No regional wall motion abnormalities. Trace tricuspid valve regurgitation. Trivial pericardial effusion. There are no intracardiac masses. Dr Berenice Singh MD FACC (Electronically Signed) Final Date: 05 June 2021 09:45 S
[2021-06-05 16:05] LABS: Ketone (Acetest) Serum Negative (Negative)
[2021-06-05 16:16] LABS: Blood Urea Nitrogen 37 mg/dL (8-23); Calcium 8.4 mg/dL (8.5-10.5); Carbon Dioxide 20 mmol/L (22-29); Chloride 102 mmol/L (98-107); Glomerular Filtration Rate 49.8 mL/min (90-130); Glucose 110 mg/dL (65-115); Osmolality Calculated 295 mOsm/kg (285-295); Sodium 138 mmol/L (136-145)
[2021-06-05] MEDS: cefTRIAXone 1,000 MG in sodium chloride 0.9% (plus) 50 ML 100 MG IV (16:54)
[2021-06-05] MEDS: dexamethasone 4 mg/mL INJ 6 MG IVP (16:55)
--- NOTE | 2021-06-05 16:56 | PC.NURSE ---
MAR other delay due to critical care of another ICU patient.
[2021-06-05 17:25] LABS: Glucose Point of Care 177 mg/dL (70-110)
[2021-06-05 20:00] LABS: Glucose Point of Care 170 mg/dL (70-110)
[2021-06-05 23:35] LABS: Glucose Point of Care 230 mg/dL (70-110)
[2021-06-06] VITALS (83 sets, daily range): BP systolic 110–179; BP diastolic 59–105; PULSE 55–97; RESP 16–46; TEMP 37.2–37.3; O2SAT 84–98
[2021-06-06] MEDS: famotidine 20 mg/2 mL INJ IVP ×2 (03:01→15:55)
[2021-06-06] MEDS: ipratropium-albuterol 3 mL Neb INHALATION ×4 (03:36→23:39)
[2021-06-06 04:08] LABS: Hematocrit 38.9 % (37.0-47.0); Lymphocytes # 0.7 10^3/uL (0.8-4.8); Lymphocytes % 11.5 %; Mean Corpuscular HGB Conc 33.4 g/dL (30.0-36.0); Mean Corpuscular Hemoglobin 29.9 pg (28.0-34.0); Mean Corpuscular Volume 89.4 fl (81-99); Mean Platelet Volume 9.1 fL (7.4-10.4); Monocytes # 0.3 10^3/uL (0.2-0.9); Monocytes % 5.7 %; Neutrophils # 4.85 10^3/uL (1.8-7.7); Neutrophils % 81.8 %; Nucleated Red Blood Cells % 0 %; Platelet Count 235 10^3/cmm (130-400); Red Blood Count 4.35 10^6/uL (4.1-5.3); White Blood Count 5.9 10^3/uL (4.0-10.0)
[2021-06-06 04:18] LABS: D Dimer 1.81 ug/mIFEU (0-0.59)
[2021-06-06 04:30] LABS: Alanine Aminotransferase 24 U/L (0-33); Albumin Level 2.9 g/dL (3.5-5.2); Alkaline Phosphatase 52 IU/L (35-105); Anion Gap 17.2 (5-19); Aspartate Amino Transferase 36 U/L (0-32); Blood Urea Nitrogen 35 mg/dL (8-23); Calcium 8.3 mg/dL (8.5-10.5); Carbon Dioxide 19 mmol/L (22-29); Chloride 105 mmol/L (98-107); Glomerular Filtration Rate 55.6 mL/min (90-130); Glucose 203 mg/dL (65-115); Magnesium 2.5 mg/dL (1.7-2.3); Osmolality Calculated 298 mOsm/kg (285-295); Phosphorus 3.1 mg/dL (2.5-4.5); Potassium 4.2 mmol/L (3.5-5.1); Sodium 137 mmol/L (136-145); Total Bilirubin 0.3 mg/dL (0.15-1.2); Total Protein 5.9 g/dL (6.6-8.7)
[2021-06-06 04:44] LABS: Slide Review Slide Review Perform
[2021-06-06] MEDS: guaiFENesin-dextromethorphan UDC 10 mL 5 ML PO ×4 (05:24→21:21)
[2021-06-06] MEDS: remdesivir 100 MG in sodium chloride 0.9% (100 ml) 100 ML IV (05:24)
[2021-06-06 05:32] LABS: Glucose Point of Care 189 mg/dL (70-110)
[2021-06-06] MEDS: insulin lispro 100 unit/1 mL SUBCUT ×2 (05:32→12:29)
[2021-06-06] MEDS: ferrous gluconate 324 mg Tablet PO ×2 (07:30→18:26)
[2021-06-06] MEDS: budesonide 0.5 mg/2 mL Neb INHALATION ×2 (08:42→20:04)
--- NOTE | 2021-06-06 09:58 | PC.CHAP ---
Pastoral Care Encounter/Spiritual Assessment Type of Contact [] Declined floor renovator visit [] Patient/Family/Request visit [] Outpatient visit [] Follow-up visit [] Physician referral [] Code/Alert [x] Routine visit [] Staff referral [] Actively dying [] Patient sleeping [x] Family support [] [] Out of room [] Palliative care [] [] Receiving care in room [] Pre-surgical visit [] Trauma [] Long length of stay [x] ICU visit [] Other: Relational/Emotional Strength [] Patient feels connected with others/family/visitors/staff [] Distress [] Loneliness/isolation [] Abandonment Spirituality of Patient [] Person of Vilma [] Attends Faith of their Vilma [] Believes in Prayer [] Reads Bible or Quaker materials [] There are Spiritual issues to be addressed Facility Maintenance Worker Interventions [x] Prayer [x] Active listening [x] Non-anxious presence [x] Spiritual/emotional support [] Crisis/trauma care [] Spiritual counseling [] Bereavement support [] Provided bereavement packet [] Provided Bible/devotional materials [] Provided toy/stuffed animal, coloring book to patient or family member [] Provided Communion [] Anointing/[place] [] Salvation [x] Completed spiritual assessment [] Other: Impact on Illness or Injury [] Angry [] Fearful [] Anxious [] Often cries [] Exhaustion [] Unable to work [] Unable to attend rastafari [] Unable to walk/stand [] Unable to read [] Unable to drive [] Unable to eat/drink [] Unable to sleep [] Unable to be with family [] Patient intubated [] Other: Summary and daughter present... patient on vent.. also received a phone call regarding this patient requesting continued visits.. and prayer Time spent with patient 10 min
--- NOTE | 2021-06-06 09:59 | PC.CHAP ---
Pastoral Care Encounter/Spiritual Assessment Type of Contact [] Declined mechanical systems design engineer visit [] Patient/Family/Request visit [] Outpatient visit [] Follow-up visit [] Physician referral [] Code/Alert [] Routine visit [] Staff referral [] Actively dying [] Patient sleeping [] Family support [] [] Out of room [] Palliative care [] [] Receiving care in room [] Pre-surgical visit [] Trauma [] Long length of stay [] ICU visit [] Other: Relational/Emotional Strength [] Patient feels connected with others/family/visitors/staff [] Distress [] Loneliness/isolation [] Abandonment Spirituality of Patient [] Person of Vilma [] Attends Baptism of their Vilma [] Believes in Prayer [] Reads Bible or Confucianist materials [] There are Spiritual issues to be addressed [employer] Interventions [] Prayer [] Active listening [] Non-anxious presence [] Spiritual/emotional support [] Crisis/trauma care [] Spiritual counseling [] Bereavement support [] Provided bereavement packet [] Provided Bible/devotional materials [] Provided toy/stuffed animal, coloring book to patient or family member [] Provided Communion [] Anointing/[place] [] Salvation [] Completed spiritual assessment [] Other: Impact on Illness or Injury [] Angry [] Fearful [] Anxious [] Often cries [] Exhaustion [] Unable to work [] Unable to attend restorationism [] Unable to walk/stand [] Unable to read [] Unable to drive [] Unable to eat/drink [] Unable to sleep [] Unable to be with family [] Patient intubated [] Other: Summary Time spent with patient
[2021-06-06] MEDS: benzonatate 100 mg Capsule 200 MG PO ×3 (10:04→21:21)
[2021-06-06] MEDS: insulin glargine 100 units/1 mL 30 UNIT SUBCUT ×2 (10:05→18:25)
[2021-06-06] MEDS: azithromycin 250 mg Tablet 500 MG PO (10:05)
[2021-06-06] MEDS: levothyroxine 88 mcg Tablet PO (10:05)
[2021-06-06] MEDS: apixaban 5 mg Tablet PO (10:05)
[2021-06-06] MEDS: ascorbic acid 500 mg Tablet PO (10:05)
[2021-06-06] MEDS: zinc gluconate 50 mg Tablet PO (10:07)
[2021-06-06 11:48] LABS: Glucose Point of Care 170 mg/dL (70-110)
[2021-06-06] MEDS: dexamethasone 4 mg/mL INJ 6 MG IVP (15:55)
[2021-06-06] MEDS: cefTRIAXone 1,000 MG in sodium chloride 0.9% (plus) 50 ML 50 MG IV (15:56)
[2021-06-06] MEDS: morphine 4 mg/mL SDV 1 mL 2 MG IVP (16:04)
--- NOTE | 2021-06-06 18:13 | P.PN_ITS ---
Subjective Subjective: Interval history: Complains of neuropathic pain in her feet. At home twice ointment containing lidocaine. Request for similar here. Denies chest pain or pressure, no headache, no nausea vomiting or diarrhea. Vitals/I&O/Wt Last Vital Signs Temp 99.2 F 06/06/21 04:00 Pulse 74 06/06/21 16:45 Resp 24 H 06/06/21 16:45 BP 156/77 06/06/21 16:00 Pulse Ox 93 06/06/21 16:45 06/06/21 06/06/21 06/06/21 06:59 14:59 22:59 Intake Total 1000 / 1721.5 460 / 460 50 / 510 Output Total 400 / 850 Balance 600 / 871.5 460 / 460 50 / 510 Weight last 48 hrs Weight 83.733 kg Weight 84.368 kg Weight 83.96 kg Physical Exam Const: COMMON NORMALS: no acute distress and patient oriented x3 HENMT: COMMON NORMALS: oropharynx normal Neck/C-Spine: COMMON NORMALS: no JVD Resp: COMMON NORMALS: normal respiratory effort and clear to auscultation bilaterally AUSCULTATION: clear to auscultation bilaterally OTHER: gets very easily dyspneic with repositioning in bed to sit up for breakfast. Cardio: COMMON NORMALS: no JVD, regular rhythm, S1 normal heart sound present, S2 normal heart sound present and No murmurs present (Cardio) RHYTHM: regular rhythm HEART SOUNDS: S1 normal heart sound present and S2 normal heart sound present GI: COMMON NORMALS: Normal to inspection, nondistended, normoactive bowel sounds present, Soft to palpation and non-tender PALPATION: Yes Soft to palpation Extremity: COMMON NORMALS: no joint enlargement GENERAL: Yes edema (Trace LLE) Neuro: COMMON NORMALS: patient oriented x3 and moves all extremities Skin: COMMON NORMALS: no rashes or lesions noted GENERAL SKIN EXAM: no r ashes or lesions noted Urinary Catheter Management^: Clement: Cath Placed During This Visit: yes Reason for Continuing Indwelling Catheter: Accurate Measurement of Urinary Output in Critically Ill Patients Urinary Catheter Date of Insertion: 06/04/21 Urinary Catheter Time of Insertion: 20:30 Data : 06/06/21 02:57 06/06/21 02:57 Micro: Microbiology 06/06/21 12:10 Gram Stain - Final Sputum - Expectorated Sputum 06/04/21 16:48 Blood Culture - Preliminary Blood NEGATIVE TO DATE 06/04/21 16:51 Blood Culture - Preliminary Blood NEGATIVE TO DATE A&P Assessment and plan (1) Acute hypoxemic respiratory failure: Continue oxygen support. Wean down as tolerating. Continue remdesivir, Decadron. Prophylactic Lovenox. 5-day course of empiric diuretics. Continue supportive care. Follow-up D-dimer, CRP. Status: Acute (2) COVID-19: Severe COVID-19, as above. Status: Acute (3) Hypertension: Status: Acute (4) Type 2 diabetes mellitus: Uncontrolled diabetes: A1c 10. Negative urine, serum ketones. Insulin sliding scale at high-dose protocol every 6 hours, Lantus to 30 units twice daily. Status: Acute Additional A&P Information Echocardiogram shows an EF 55% with no regional wall motion abnormality, trace TR, trivial pericardial effusion. Patient developing mild PRIMITIVO today. Received brief IV hydration with normal saline at 75 cc/h for 1 bag. Strict input output charting, daily weights. Acute kidney injury: Improved. Received brief IV hydration. Hold lisinopril. Guarded prognosis. Attestations Medical Necessity Statement*: Continue medicine for assessment of management of hypoxic respiratory failure secondary to severe COVID-19. Coding Level of Care Code Acute Mortician Investigator for Rosario Zuniga Diagnoses Acute hypoxemic respiratory failure J96.01 COVID-19 U07.1 Hypertension I10 Type 2 diabetes mellitus E11.9
[2021-06-06 18:45] LABS: Glucose Point of Care 102 mg/dL (70-110)
[2021-06-06] MEDS: enoxaparin 40 mg/0.4 mL Syringe SUBCUT (21:25)
[2021-06-07] VITALS (88 sets, daily range): BP systolic 119–179; BP diastolic 70–108; PULSE 52–86; RESP 15–45; TEMP 36.7–37.2; O2SAT 82–98
[2021-06-07] MEDS: insulin lispro 100 unit/1 mL SUBCUT ×3 (01:00→18:20)
[2021-06-07 01:01] LABS: Glucose Point of Care 215 mg/dL (70-110)
[2021-06-07] MEDS: acetaminophen 325 mg Tablet 650 MG PO (02:18)
[2021-06-07] MEDS: famotidine 20 mg/2 mL INJ IVP ×2 (02:19→16:29)
[2021-06-07] MEDS: ipratropium-albuterol 3 mL Neb INHALATION ×5 (03:23→20:17)
[2021-06-07 04:58] LABS: Basophils % 0.1 %; Hematocrit 40.2 % (37.0-47.0); Hemoglobin 13.2 g/dL (11.5-15.3); Lymphocytes # 0.8 10^3/uL (0.8-4.8); Lymphocytes % 11.1 %; Mean Corpuscular HGB Conc 32.8 g/dL (30.0-36.0); Mean Corpuscular Hemoglobin 29.9 pg (28.0-34.0); Monocytes # 0.5 10^3/uL (0.2-0.9); Monocytes % 7.4 %; Neutrophils # 5.65 10^3/uL (1.8-7.7); Neutrophils % 80.4 %; Nucleated Red Blood Cells % 0 %; Platelet Count 262 10^3/cmm (130-400); Red Blood Count 4.42 10^6/uL (4.1-5.3); Red Cell Distribution Width 13.1 % (12.1-15.1)
[2021-06-07 05:11] LABS: Alanine Aminotransferase 21 U/L (0-33); Alkaline Phosphatase 52 IU/L (35-105); Anion Gap 18.5 (5-19); Aspartate Amino Transferase 24 U/L (0-32); Blood Urea Nitrogen 31 mg/dL (8-23); C Reactive Protein 22.4 mg/L (0.0-4.9); Calcium 8.4 mg/dL (8.5-10.5); Carbon Dioxide 20 mmol/L (22-29); Chloride 105 mmol/L (98-107); Globulin 2.9 g/dL (1.3-4.6); Glucose 184 mg/dL (65-115); Magnesium 2.3 mg/dL (1.7-2.3); Osmolality Calculated 299 mOsm/kg (285-295); Phosphorus 3.4 mg/dL (2.5-4.5); Potassium 4.5 mmol/L (3.5-5.1); Sodium 139 mmol/L (136-145); Total Bilirubin 0.3 mg/dL (0.15-1.2); Total Protein 5.9 g/dL (6.6-8.7)
[2021-06-07] MEDS: guaiFENesin-dextromethorphan UDC 10 mL 5 ML PO ×4 (05:35→22:00)
[2021-06-07] MEDS: remdesivir 100 MG in sodium chloride 0.9% (100 ml) 100 ML IV (05:35)
[2021-06-07 05:38] LABS: Glucose Point of Care 137 mg/dL (70-110)
--- NOTE | 2021-06-07 06:00 | XRR_ITS ---
PROCEDURE INFORMATION: Exam: XR Chest Exam date and time: 06/07/2021 6:00 AM Age: 65 years old Clinical indication: Condition or disease; Lung condition and disease; Pneumonia; Additional info: Covid TECHNIQUE: Imaging protocol: XR of the chest. Views: 1 view. COMPARISON: CR (CHEST, ) 06/05/2021 5:08 AM FINDINGS: Lungs: Persistent bilateral airspace opacities. No large pleural effusion or pneumothorax. Pleural spaces: See Lungs finding. Heart/Mediastinum: Stable cardiomediastinal silhouette. Bones/joints: No acute osseous injury identified. XR/XR chest 1V portable [id number] IMPRESSION: Persistent bilateral airspace opacities.
[2021-06-07 06:25] LABS: D Dimer 1.75 ug/mIFEU (0-0.59)
[2021-06-07 07:40] LABS: Slide Review Slide Review Perform
[2021-06-07] MEDS: ferrous gluconate 324 mg Tablet PO ×2 (08:17→18:06)
[2021-06-07] MEDS: benzonatate 100 mg Capsule 200 MG PO ×3 (08:17→20:06)
[2021-06-07] MEDS: insulin glargine 100 units/1 mL 30 UNIT SUBCUT ×2 (08:18→18:06)
[2021-06-07] MEDS: azithromycin 250 mg Tablet 500 MG PO (08:18)
[2021-06-07] MEDS: zinc gluconate 50 mg Tablet PO (08:18)
[2021-06-07] MEDS: ascorbic acid 500 mg Tablet PO (08:18)
[2021-06-07] MEDS: levothyroxine 88 mcg Tablet PO (08:18)
[2021-06-07] MEDS: budesonide 0.5 mg/2 mL Neb INHALATION ×2 (08:45→20:17)
[2021-06-07] MEDS: morphine 4 mg/mL SDV 1 mL 2 MG IVP (09:35)
--- NOTE | 2021-06-07 10:10 | P.PN_ITS ---
Subjective Subjective: Interval history: States feels about the same, denies any changes. No headache, no nausea vomiting or diarrhea. Vitals/I&O/Wt Last Vital Signs Temp 98.0 F 06/07/21 08:30 Pulse 65 06/07/21 08:59 Resp 20 H 06/07/21 09:35 BP 144/90 06/07/21 08:30 Pulse Ox 96 06/07/21 09:35 06/06/21 06/07/21 06/07/21 22:59 06:59 14:59 Intake Total 415 / 875 118 / 993 340 / 340 Output Total 1000 / 1000 Balance -585 / -125 118 / -7 340 / 340 Weight last 48 hrs Weight 88.632 kg Weight 83.733 kg Physical Exam Const: COMMON NORMALS: no acute distress and patient oriented x3 HENMT: COMMON NORMALS: oropharynx normal Neck/C-Spine: COMMON NORMALS: no JVD Resp: COMMON NORMALS: normal respiratory effort and clear to auscultation bilaterally EFFORT & INSPECTION: Yes able to speak in complete sentences AUSCULTATION: clear to auscultation bilaterally Cardio: COMMON NORMALS: no JVD, regular rhythm, S1 normal heart sound present, S2 normal heart sound present and No murmurs present (Cardio) RHYTHM: regular rhythm HEART SOUNDS: S1 normal heart sound present and S2 normal heart sound present GI: COMMON NORMALS: Normal to inspection, nondistended, normoactive bowel sounds present, Soft to palpation and non-tender PALPATION: Yes Soft to palpation Extremity: COMMON NORMALS: no joint enlargement and no pedal edema Neuro: COMMON NORMALS: patient oriented x3 and moves all extremities Skin: COMMON NORMALS: no rashes or lesions noted GENERAL SKIN EXAM: no rashes or lesions noted Urinary Catheter Management^: Clement: Cath Placed During This Visit: yes Reason for Continuing Indwelling Catheter: Accurate Measurement of Urinary Output in Critically Ill Patients Urinary Catheter Date of Insertion: 06/04/21 Urinary Catheter Time of Insertion: 20:30 Data : 06/07/21 03:12 06/07/21 03:12 Micro: Microbiology 06/06/21 12:10 Gram Stain - Final Sputum - Expectorated Sputum A&P Assessment and plan (1) Acute hypoxemic respiratory failure: Continue remdesivir, Decadron. Prophylactic Lovenox. 5-day course of empiric antibiotic. Wean down oxygen as tolerating. Continue supportive care. Follow-up D-dimer, CRP. Discussed condition with daughter. Discussed so far staying steady on current oxygen supply, still in danger of worsening requiring intubation mechanical ventilation. Status: Acute (2) COVID-19: Severe COVID-19, as above. Status: Acute (3) Hypertension: Status: Acute (4) Type 2 diabetes mellitus: Uncontrolled diabetes: A1c 10. Negative urine, serum ketones. Insulin sliding scale at high-dose protocol every 6 hours, Lantus to 30 units twice daily. Status: Acute Additional A&P Information Echocardiogram shows an EF 55% with no regional wall motion abnormality, trace TR, trivial pericardial effusion. Patient developing mild PRIMITIVO today. Received brief IV hydration with normal saline at 75 cc/h for 1 bag. Strict input output charting, daily weights. Acute kidney injury: Improved. Received brief IV hydration. Hold lisinopril. Guarded prognosis. Attestations Medical Necessity Statement*: Continue admission for cyst management of hypoxic respite failure with severe COVID-19. Coding Level of Care Code Acute Gas Utility Worker for [facility] Diagnoses Acute hypoxemic respiratory failure J96.01 COVID-19 U07.1 Hypertension I10 Type 2 diabetes mellitus E11.9
[2021-06-07] MEDS: ondansetron 2 mg/ML SDV 2 mL 4 MG IVP (10:31)
[2021-06-07 12:21] LABS: Glucose Point of Care 173 mg/dL (70-110)
--- NOTE | 2021-06-07 15:45 | PC.SOCIAL ---
IMM UPDATED IMM dated and initialed and copy given to pts family
[2021-06-07] MEDS: cefTRIAXone 1,000 MG in sodium chloride 0.9% (plus) 50 ML 100 MG IV (16:29)
[2021-06-07] MEDS: dexamethasone 4 mg/mL INJ 6 MG IVP (16:29)
[2021-06-07] MEDS: enoxaparin 40 mg/0.4 mL Syringe SUBCUT (20:06)
[2021-06-08] VITALS (46 sets, daily range): BP systolic 104–176; BP diastolic 52–96; PULSE 53–89; RESP 14–40; TEMP 36.9–37.2; O2SAT 84–99
[2021-06-08] MEDS: ipratropium-albuterol 3 mL Neb INHALATION ×6 (00:17→19:55)
[2021-06-08] MEDS: insulin lispro 100 unit/1 mL SUBCUT ×3 (00:49→23:02)
[2021-06-08 00:55] LABS: Glucose Point of Care 231 mg/dL (70-110)
[2021-06-08] MEDS: famotidine 20 mg/2 mL INJ IVP ×2 (02:18→15:49)
[2021-06-08 04:47] LABS: Basophils % 0.1 %; Hemoglobin 13.3 g/dL (11.5-15.3); Lymphocytes # 0.9 10^3/uL (0.8-4.8); Lymphocytes % 9.9 %; Mean Corpuscular HGB Conc 32.4 g/dL (30.0-36.0); Mean Corpuscular Hemoglobin 29.4 pg (28.0-34.0); Mean Corpuscular Volume 90.5 fl (81-99); Mean Platelet Volume 8.4 fL (7.4-10.4); Monocytes # 0.6 10^3/uL (0.2-0.9); Monocytes % 5.9 %; Neutrophils # 7.77 10^3/uL (1.8-7.7); Neutrophils % 82.4 %; Nucleated Red Blood Cells % 0 %; Platelet Count 295 10^3/cmm (130-400); Red Blood Count 4.53 10^6/uL (4.1-5.3); Red Cell Distribution Width 12.8 % (12.1-15.1); White Blood Count 9.4 10^3/uL (4.0-10.0)
[2021-06-08 04:59] LABS: D Dimer 1.64 ug/mIFEU (0-0.59)
[2021-06-08 05:01] LABS: Phosphorus 3.5 mg/dL (2.5-4.5)
[2021-06-08 05:04] LABS: Alanine Aminotransferase 20 U/L (0-33); Albumin Level 3.1 g/dL (3.5-5.2); Alkaline Phosphatase 53 IU/L (35-105); Anion Gap 14.1 (5-19); Aspartate Amino Transferase 23 U/L (0-32); Blood Urea Nitrogen 23 mg/dL (8-23); Calcium 8.5 mg/dL (8.5-10.5); Carbon Dioxide 22 mmol/L (22-29); Chloride 102 mmol/L (98-107); Globulin 2.3 g/dL (1.3-4.6); Glomerular Filtration Rate 62.8 mL/min (90-130); Glucose 98 mg/dL (65-115); Osmolality Calculated 282 mOsm/kg (285-295); Potassium 4.1 mmol/L (3.5-5.1); Sodium 134 mmol/L (136-145); Total Bilirubin 0.4 mg/dL (0.15-1.2); Total Protein 5.4 g/dL (6.6-8.7)
[2021-06-08] MEDS: remdesivir 100 MG in sodium chloride 0.9% (100 ml) 100 ML IV (05:18)
[2021-06-08] MEDS: guaiFENesin-dextromethorphan UDC 10 mL 5 ML PO ×4 (05:18→23:03)
[2021-06-08 06:47] LABS: Glucose Point of Care 91 mg/dL (70-110)
--- NOTE | 2021-06-08 07:45 | PC.NURSE ---
IS and flutter valve education and encouragement provided. Pt would only blow on flutter valve 4 times and attempt IS twice, 500ml reached.
[2021-06-08] MEDS: budesonide 0.5 mg/2 mL Neb INHALATION ×2 (07:59→19:54)
[2021-06-08] MEDS: insulin glargine 100 units/1 mL 30 UNIT SUBCUT ×2 (08:49→17:24)
[2021-06-08] MEDS: ferrous gluconate 324 mg Tablet PO ×2 (08:50→17:24)
[2021-06-08] MEDS: benzonatate 100 mg Capsule 200 MG PO ×3 (08:50→20:08)
[2021-06-08] MEDS: zinc gluconate 50 mg Tablet PO (08:50)
[2021-06-08] MEDS: ascorbic acid 500 mg Tablet PO (08:50)
[2021-06-08] MEDS: azithromycin 250 mg Tablet 500 MG PO (08:50)
[2021-06-08] MEDS: levothyroxine 88 mcg Tablet PO (08:50)
--- NOTE | 2021-06-08 09:15 | PC.CHAP ---
Pastoral Care Encounter/Spiritual Assessment Type of Contact [] Declined cable coverer visit [] Patient/Family/Request visit [] Outpatient visit [] Follow-up visit [] Physician referral [] Code/Alert [x] Routine visit [] Staff referral [] Actively dying [] Patient sleeping [] Family support [] [] Out of room [] Palliative care [] [] Receiving care in room [] Pre-surgical visit [] Trauma [] Long length of stay [x] ICU visit [x] Other: setting up in chair... isolated Relational/Emotional Strength [] Patient feels connected with others/family/visitors/staff [] Distress [] Loneliness/isolation [] Abandonment Spirituality of Patient [] Person of Vilma [] Attends Anabaptism of their [place] [] Believes in Prayer [] Reads Bible or Zoroastrian materials [] There are Spiritual issues to be addressed Ecommerce Merchandising Manager Interventions [x] Prayer [] Active listening [] Non-anxious presence [] Spiritual/emotional support [] Crisis/trauma care [] Spiritual counseling [] Bereavement support [] Provided bereavement packet [] Provided Bible/devotional materials [] Provided toy/stuffed animal, coloring book to patient or family member [] Provided Communion [] Anointing/[place] [] Salvation [x] Completed spiritual assessment [] Other: Impact on Illness or Injury [] Angry [] Fearful [] Anxious [] Often cries [] Exhaustion [] Unable to work [] Unable to attend pentecostal [] Unable to walk/stand [] Unable to read [] Unable to drive [] Unable to eat/drink [] Unable to sleep [] Unable to be with family [] Patient intubated [] Other: Summary Time spent with patient
--- NOTE | 2021-06-08 10:20 | PC.NURSE ---
NOted pt lying on unmade bed. Pt admitted to getting out of chair and getting into the bed without assistance. Reminded pt of fall risks associated with all the cords/cables, vasquez catheter and her on going shortness of breath. Standy by assistance provided for pt getting back into chair. Re instructed guest relations agent light and recliner controls. Pt verbalized understanding.
[2021-06-08 11:48] LABS: Glucose Point of Care 139 mg/dL (70-110)
[2021-06-08] MEDS: cefTRIAXone 1,000 MG in sodium chloride 0.9% (plus) 50 ML 100 MG IV (15:49)
[2021-06-08] MEDS: dexamethasone 4 mg/mL INJ 6 MG IVP (15:49)
--- NOTE | 2021-06-08 15:52 | PC.RESP ---
RT Shift Note Frequent safety and respiratory rounds continue. Orders completed as indicated. Patient monitored pre and post treatments throughout shift. Patient [Did.] tolerate treatments appropriately. Condition [.DidNotChange]. Patient and/or commissary representative educated on respiratory treatment and medications. Patient and/or commissary representative [verbalized understanding]. Will continue to monitor patient progress.
--- NOTE | 2021-06-08 16:47 | PM.PN ---
Subjective Subjective: Interval history: She denies any additional changes. Mild intermittent cough. Denies chest pain or pressure. No nausea vomiting or diarrhea. Agreeable to consider further management and weaning at LTAC. Vitals/I&O/Wt Last Vital Signs Temp 98.9 F 06/08/21 16:00 Pulse 76 06/08/21 16:00 Resp 39 H 06/08/21 16:00 BP 164/91 06/08/21 16:00 Pulse Ox 92 06/08/21 16:24 06/08/21 06/08/21 06/08/21 06:59 14:59 22:59 Intake Total 225 / 885 200 / 200 Balance 225 / -115 200 / 200 Weight last 48 hrs Weight 85.003 kg Weight 88.632 kg Physical Exam Const: COMMON NORMALS: no acute distress and patient oriented x3 HENMT: COMMON NORMALS: oropharynx normal Neck/C-Spine: COMMON NORMALS: no JVD Resp: COMMON NORMALS: normal respiratory effort and clear to auscultation bilaterally EFFORT & INSPECTION: Yes able to speak in complete sentences AUSCULTATION: clear to auscultation bilaterally Cardio: COMMON NORMALS: no JVD, regular rhythm, S1 normal heart sound present, S2 normal heart sound present and No murmurs present (Cardio) RHYTHM: regular rhythm HEART SOUNDS: S1 normal heart sound present and S2 normal heart sound present GI: COMMON NORMALS: Normal to inspection, nondistended, normoactive bowel sounds present, Soft to palpation and non-tender PALPATION: Yes Soft to palpation Extremity: COMMON NORMALS: no joint enlargement and no pedal edema Neuro: COMMON NORMALS: patient oriented x3 and moves all extremities Skin: COMMON NORMALS: no rashes or lesions noted GENERAL SKIN EXAM: no rashes or lesions noted Urinary Catheter Management^: Clement: Cath Placed During This Visit: yes Reason for Continuing Indwelling Catheter: Accurate Measurement of Urinary Output in Critically Ill Patients Urinary Catheter Date of Insertion: 06/04/21 Urinary Catheter Time of Insertion: 20:30 Data : 06/08/21 04:27 06/08/21 04:27 Micro: Microbiology 06/06/21 12:10 Gram Stain - Final Sputum - Expectorated Sputum Sputum Culture - Preliminary A&P Assessment and plan (1) Acute hypoxemic respiratory failure: Continue Decadron. Prophylactic Lovenox. 5-day course of empiric antibiotic. Completed remdesivir. Wean down oxygen as tolerating. Continue supportive care. Follow-up D-dimer, CRP. Status: Acute (2) COVID-19: Severe COVID-19, as above. Status: Acute (3) Hypertension: Status: Acute (4) Type 2 diabetes mellitus: Uncontrolled diabetes: A1c 10. Negative urine, serum ketones. Insulin sliding scale at high-dose protocol every 6 hours, Lantus to 30 units twice daily. Status: Acute Additional A&P Information Echocardiogram shows an EF 55% with no regional wall motion abnormality, trace TR, trivial pericardial effusion. Patient developing mild PRIMITIVO today. Received brief IV hydration with normal saline at 75 cc/h for 1 bag. Strict input output charting, daily weights. Acute kidney injury: Improved. Received brief IV hydration. Hold lisinopril. Guarded prognosis. Attestations Medical Necessity Statement*: Continue oxygen support, wean down as tolerating, IV steroid, supportive care and management of hypoxic respiratory with severe COVID-19. Coding Level of Care Code Acute Medical Reimbursement Manager for Rosario Zuniga Diagnoses Acute hypoxemic respiratory failure J96.01 COVID-19 U07.1 Hypertension I10 Type 2 diabetes mellitus E11.9
[2021-06-08 17:12] LABS: Glucose Point of Care 155 mg/dL (70-110)
[2021-06-08] MEDS: enoxaparin 40 mg/0.4 mL Syringe SUBCUT (20:08)
[2021-06-08 23:00] LABS: Glucose Point of Care 202 mg/dL (70-110)
[2021-06-09] VITALS (40 sets, daily range): BP systolic 118–164; BP diastolic 59–102; PULSE 60–84; RESP 21–39; TEMP 36.6–36.9; O2SAT 86–97
[2021-06-09] MEDS: ipratropium-albuterol 3 mL Neb INHALATION ×7 (00:18→23:33)
[2021-06-09] MEDS: famotidine 20 mg/2 mL INJ IVP ×2 (04:00→16:24)
[2021-06-09] MEDS: guaiFENesin-dextromethorphan UDC 10 mL 5 ML PO ×4 (04:00→23:11)
[2021-06-09 05:08] LABS: Basophils % 0.1 %; Eosinophils % 0.1 %; Hematocrit 41.3 % (37.0-47.0); Hemoglobin 13.8 g/dL (11.5-15.3); Lymphocytes # 0.7 10^3/uL (0.8-4.8); Mean Corpuscular HGB Conc 33.4 g/dL (30.0-36.0); Mean Corpuscular Hemoglobin 29.7 pg (28.0-34.0); Mean Corpuscular Volume 88.8 fl (81-99); Mean Platelet Volume 8.7 fL (7.4-10.4); Monocytes # 0.4 10^3/uL (0.2-0.9); Monocytes % 3.9 %; Neutrophils # 8.33 10^3/uL (1.8-7.7); Neutrophils % 87.4 %; Nucleated Red Blood Cells % 0 %; Platelet Count 288 10^3/cmm (130-400); Red Blood Count 4.65 10^6/uL (4.1-5.3); Red Cell Distribution Width 12.5 % (12.1-15.1); White Blood Count 9.5 10^3/uL (4.0-10.0)
[2021-06-09 05:31] LABS: Alanine Aminotransferase 22 U/L (0-33); Alkaline Phosphatase 57 IU/L (35-105); Anion Gap 17.3 (5-19); Aspartate Amino Transferase 23 U/L (0-32); Blood Urea Nitrogen 22 mg/dL (8-23); Calcium 9.6 mg/dL (8.5-10.5); Carbon Dioxide 21 mmol/L (22-29); Chloride 102 mmol/L (98-107); Globulin 2.5 g/dL (1.3-4.6); Glucose 119 mg/dL (65-115); Osmolality Calculated 286 mOsm/kg (285-295); Potassium 4.3 mmol/L (3.5-5.1); Sodium 136 mmol/L (136-145); Total Bilirubin 0.5 mg/dL (0.15-1.2); Total Protein 5.5 g/dL (6.6-8.7)
[2021-06-09 05:50] LABS: Glucose Point of Care 111 mg/dL (70-110)
--- NOTE | 2021-06-09 06:00 | XR_ITS ---
WS: [id number] Portable AP upright chest, 06/09/2021 Clinical Data: covid Comparison: Portable chest, 06/07/2021. Findings: The bilateral patchy pulmonary opacities have not changed. The heart remains enlarged. Anali tor leads are on the chest wall. XR/XR chest 1V portable [id number] Impression: No change in bilateral patchy pulmonary opacities.
[2021-06-09 06:30] LABS: D Dimer 1.81 ug/mIFEU (0-0.59)
--- NOTE | 2021-06-09 06:39 | PC.NURSE ---
Shift Note Frequent safety and comfort rounds continue. Orders and/or nursing care completed as indicated. Patient monitored for response to intervention and treatment(s). Overall shift was uneventful. Patient rested throughout the night, turning self from side to side frequently. While lying supine, patient's oxygen saturation decreases slightly to high 80s; all other vitals remain stable, and oxygen saturation does recover to the low 90s after deep breathing education. Patient remains on HHF, FIO2 began at 90% at the beginning of the shift and has been titrated down to 80%. Patient tolerating well. Will continue to monitor.
[2021-06-09] MEDS: insulin glargine 100 units/1 mL 30 UNIT SUBCUT ×2 (08:34→17:52)
[2021-06-09] MEDS: ferrous gluconate 324 mg Tablet PO ×2 (08:35→17:53)
[2021-06-09] MEDS: levothyroxine 88 mcg Tablet PO (08:35)
[2021-06-09] MEDS: ascorbic acid 500 mg Tablet PO (08:35)
[2021-06-09] MEDS: zinc gluconate 50 mg Tablet PO (08:35)
[2021-06-09] MEDS: benzonatate 100 mg Capsule 200 MG PO ×3 (08:35→20:20)
[2021-06-09] MEDS: budesonide 0.5 mg/2 mL Neb INHALATION ×2 (08:36→20:46)
--- NOTE | 2021-06-09 11:01 | PC.RESP ---
RT Shift Note Frequent safety and respiratory rounds continue. Orders completed as indicated. Patient monitored pre and post treatments throughout shift. Patient [Did.] tolerate treatments appropriately. Condition [.DidNotChange]. Patient and/or public health representative educated on respiratory treatment and medications. Patient and/or public health representative [verbalized understanding]. Will continue to monitor patient progress.
[2021-06-09 11:25] LABS: Glucose Point of Care 158 mg/dL (70-110)
[2021-06-09] MEDS: insulin lispro 100 unit/1 mL SUBCUT ×2 (11:54→23:12)
--- NOTE | 2021-06-09 12:40 | PC.NURSE ---
family updated of pt's progress via telephone with pt's permission. Updated Sandra Saul, her mother then her contact listed as daughter Skyla Sandoval.
--- NOTE | 2021-06-09 12:58 | PM.PN ---
Subjective Subjective: Interval history: She is coughing. Denies headache. No nausea vomiting or diarrhea. Discussed with her to make sure to request for cough medicine. Vitals/I&O/Wt Last Vital Signs Temp 98.4 F 06/09/21 04:00 Pulse 72 06/09/21 11:30 Resp 28 H 06/09/21 11:30 BP 118/59 06/09/21 06:00 Pulse Ox 95 06/09/21 11:30 06/08/21 06/09/21 06/09/21 22:59 06:59 14:59 Intake Total 540 / 740 Output Total 600 / 600 475 / 1075 Balance -60 / 140 -475 / -335 Weight last 48 hrs Weight 83.96 kg Weight 85.003 kg Physical Exam Const: COMMON NORMALS: no acute distress and patient oriented x3 HENMT: COMMON NORMALS: oropharynx normal Neck/C-Spine: COMMON NORMALS: no JVD Resp: COMMON NORMALS: normal respiratory effort and clear to auscultation bilaterally EFFORT & INSPECTION: Yes able to speak in complete sentences AUSCULTATION: clear to auscultation bilaterally Cardio: COMMON NORMALS: no JVD, regular rhythm, S1 normal heart sound present, S2 normal heart sound present and No murmurs present (Cardio) RHYTHM: regular rhythm HEART SOUNDS: S1 normal heart sound present and S2 normal heart sound present GI: COMMON NORMALS: Normal to inspection, nondistended, normoactive bowel sounds present, Soft to palpation and non-tender PALPATION: Yes Soft to palpation Extremity: COMMON NORMALS: no joint enlargement and no pedal edema Neuro: COMMON NORMALS: patient oriented x3 and moves all extremities Skin: COMMON NORMALS: no rashes or lesions noted GENERAL SKIN EXAM: no rashes or lesions noted Urinary Catheter Management^: Clement: Cath Placed During This Visit: yes Reason for Continuing Indwelling Catheter: Accurate Measurement of Urinary Output in Critically Ill Patients Urinary Catheter Date of Insertion: 06/04/21 Urinary Catheter Time of Insertion: 20:30 Data : 06/09/21 04:31 06/09/21 04:31 Micro: Microbiology 06/06/21 12:10 Gram Stain - Final Sputum - Expectorated Sputum Sputum Culture - Preliminary A&P Assessment and plan (1) Acute hypoxemic respiratory failure: Continue Decadron. Prophylactic Lovenox. Completed 5-day course of empiric antibiotic. Completed remdesivir. Wean down oxygen as tolerating. Continue supportive care. Follow-up D-dimer, CRP. Status: Acute (2) COVID-19: Severe COVID-19, as above. Status: Acute (3) Hypertension: Status: Acute (4) Type 2 diabetes mellitus: Uncontrolled diabetes: A1c 10. Negative urine, serum ketones. Insulin sliding scale at high-dose protocol every 6 hours, Lantus to 30 units twice daily. Status: Acute Additional A&P Information Echocardiogram shows an EF 55% with no regional wall motion abnormality, trace TR, trivial pericardial effusion. Patient developing mild PRIMITIVO today. Received brief IV hydration with normal saline at 75 cc/h for 1 bag. Strict input output charting, daily weights. Acute kidney injury: Resolved. Hold lisinopril. Guarded prognosis. Attestations Medical Necessity Statement*: Continue admission for hypoxic respite failure secondary to severe COVID-19. 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
--- NOTE | 2021-06-09 15:51 | PC.NURSE ---
Addendum entered by Tanya Belle RN 06/09/21 19:26: THIS SHIFT NOTE WAS FOR JUNE 08, 2021 1900: DAYSHIFT. Original Note: Shift Note Frequent safety and comfort rounds continue. Orders and/or nursing care completed as indicated. Patient monitored for response to intervention and treatment(s). Education provided includes IS and flutter valve use, out of bed, deep breathing, Lantus and vitamins. Patient resistant to IS and flutter valve instruction, she only uses at prodding from staff , and then it is just a few times. She reached 500ml on the two IS attempts. She is resistant to anything that is not ling in the bed and resting with eyes closed today. She remains on heated high flow at 50 liters, decreased FIO2 to 80% from 90%. Her appetite was poor today.. She finally ate at dinner time, less than 50%. Her oral intake today was minimal.. Will continue to monitor.
--- NOTE | 2021-06-09 16:07 | PC.SOCIAL ---
IMM UPDATED IMM dated and initialed and copy given to patient
[2021-06-09] MEDS: dexamethasone 4 mg/mL INJ 6 MG IVP (16:24)
[2021-06-09 17:47] LABS: Glucose Point of Care 143 mg/dL (70-110)
--- NOTE | 2021-06-09 19:29 | PC.NURSE ---
Shift Note: Pt up in chair throughout the shift. She remains on heated high flow at 50 liters and 80% FIO2. She has voiced n o complaints of shortness of breath or other difficulties. No improvement noted on her breathing this shift. Have not observed pt using IS or flutter valve today. Pt's appetite has much improved , she has ate 25-50% of every meal today. Urine output dismal at 325ml. Dr notified. Frequent safety and comfort rounds continue. Orders and/or nursing care completed as indicated. Patient monitored for response to intervention and treatment(s). Education provided includes IS and flutter valve and continued deep breathing. Patient just looks at nurse while education provided. Will continue to monitor.
[2021-06-09] MEDS: enoxaparin 40 mg/0.4 mL Syringe SUBCUT (20:20)
--- NOTE | 2021-06-09 20:35 | PC.NURSE ---
Oxygen saturation Patient transferred from chair to bedside commode and then to bed. Patient's oxygen saturation decreased during activity to low 80s. Once settled back into bed, oxygen saturation returned to high 80s-low 90s. All other vitals stable.
[2021-06-09 23:10] LABS: Glucose Point of Care 200 mg/dL (70-110)
[2021-06-10] VITALS (52 sets, daily range): BP systolic 104–150; BP diastolic 59–104; PULSE 16–107; RESP 15–90; TEMP 36.4–36.9; O2SAT 85–100
[2021-06-10] MEDS: famotidine 20 mg/2 mL INJ IVP ×2 (02:24→15:42)
[2021-06-10] MEDS: ipratropium-albuterol 3 mL Neb INHALATION ×5 (03:29→21:03)
[2021-06-10] MEDS: guaiFENesin-dextromethorphan UDC 10 mL 5 ML PO ×4 (05:08→22:21)
[2021-06-10 05:39] LABS: Glucose Point of Care 70 mg/dL (70-110)
[2021-06-10 05:40] LABS: Basophils % 0.3 %; Eosinophils % 0.4 %; Hematocrit 45.6 % (37.0-47.0); Hemoglobin 14.7 g/dL (11.5-15.3); Lymphocytes # 0.8 10^3/uL (0.8-4.8); Lymphocytes % 7.5 %; Mean Corpuscular HGB Conc 32.2 g/dL (30.0-36.0); Mean Corpuscular Hemoglobin 29.7 pg (28.0-34.0); Mean Corpuscular Volume 92.1 fl (81-99); Mean Platelet Volume 8.7 fL (7.4-10.4); Monocytes # 0.4 10^3/uL (0.2-0.9); Neutrophils # 9.43 10^3/uL (1.8-7.7); Neutrophils % 86.3 %; Nucleated Red Blood Cells % 0 %; Platelet Count 288 10^3/cmm (130-400); Red Blood Count 4.95 10^6/uL (4.1-5.3); Red Cell Distribution Width 12.6 % (12.1-15.1); White Blood Count 10.9 10^3/uL (4.0-10.0)
[2021-06-10 07:18] LABS: Alanine Aminotransferase 29 U/L (0-33); Albumin Level 3.3 g/dL (3.5-5.2); Alkaline Phosphatase 54 IU/L (35-105); Anion Gap 17.4 (5-19); Aspartate Amino Transferase 29 U/L (0-32); Blood Urea Nitrogen 19 mg/dL (8-23); Calcium 8.8 mg/dL (8.5-10.5); Carbon Dioxide 22 mmol/L (22-29); Chloride 100 mmol/L (98-107); Globulin 2.1 g/dL (1.3-4.6); Glucose 70 mg/dL (65-115); Osmolality Calculated 281 mOsm/kg (285-295); Potassium 4.4 mmol/L (3.5-5.1); Sodium 135 mmol/L (136-145); Total Bilirubin 0.6 mg/dL (0.15-1.2); Total Protein 5.4 g/dL (6.6-8.7)
[2021-06-10] MEDS: insulin glargine 100 units/1 mL 30 UNIT SUBCUT ×2 (08:40→18:07)
[2021-06-10] MEDS: ascorbic acid 500 mg Tablet PO (08:40)
[2021-06-10] MEDS: zinc gluconate 50 mg Tablet PO (08:40)
[2021-06-10] MEDS: levothyroxine 88 mcg Tablet PO (08:40)
[2021-06-10] MEDS: benzonatate 100 mg Capsule 200 MG PO ×3 (08:40→20:21)
[2021-06-10] MEDS: ferrous gluconate 324 mg Tablet PO ×2 (08:40→18:07)
[2021-06-10] MEDS: budesonide 0.5 mg/2 mL Neb INHALATION ×2 (09:07→21:03)
[2021-06-10 12:24] LABS: Glucose Point of Care 188 mg/dL (70-110)
--- NOTE | 2021-06-10 12:43 | PM.PN ---
Subjective Subjective: Interval history: Feeling about the same. Desaturates with exertion, but at rest feels he is doing all right. Feels the bed was not entirely comfortable at night. Denies headache, nausea vomiting or diarrhea. Vitals/I&O/Wt Last Vital Signs Temp 98.1 F 06/10/21 09:00 Pulse 61 06/10/21 10:00 Resp 33 H 06/10/21 10:00 BP 121/64 06/10/21 10:00 Pulse Ox 100 06/10/21 10:00 06/09/21 06/10/21 06/10/21 22:59 06:59 14:59 Intake Total 150 / 1050 240 / 240 Output Total 650 / 650 Balance 150 / 1050 -650 / 400 240 / 240 Weight last 48 hrs Weight 81.964 kg Weight 83.96 kg Physical Exam Const: COMMON NORMALS: no acute distress and patient oriented x3 HENMT: COMMON NORMALS: oropharynx normal Neck/C-Spine: COMMON NORMALS: no JVD Resp: COMMON NORMALS: normal respiratory effort and clear to auscultation bilaterally EFFORT & INSPECTION: Yes able to speak in complete sentences AUSCULTATION: clear to auscultation bilaterally Cardio: COMMON NORMALS: no JVD, regular rhythm, S1 normal heart sound present, S2 normal heart sound present and No murmurs present (Cardio) RHYTHM: regular rhythm HEART SOUNDS: S1 normal heart sound present and S2 normal heart sound present GI: COMMON NORMALS: Normal to inspection, nondistended, normoactive bowel sounds present, Soft to palpation and non-tender PALPATION: Yes Soft to palpation Extremity: COMMON NORMALS: no joint enlargement and no pedal edema GENERAL: Yes edema (Trace LLE) Neuro: COMMON NORMALS: patient oriented x3 and moves all extremities Skin: COMMON NORMALS: no rashes or lesions noted GENERAL SKIN EXAM: no rashes or lesions noted Urinary Catheter Management^: Clement: Cath Placed During This Visit: yes Reason for Continuing Indwelling Catheter: Accurate Measurement of Urinary Output in Critically Ill Patients Urinary Catheter Date of Insertion: 06/04/21 Urinary Catheter Time of Insertion: 20:30 Data : 06/10/21 05:12 06/10/21 05:12 Micro: Microbiology 06/04/21 16:48 Blood Culture - Final Blood NO GROWTH AFTER 5 DAYS 06/04/21 16:51 Blood Culture - Final Blood NO GROWTH AFTER 5 DAYS 06/06/21 12:10 Gram Stain - Final Sputum - Expectorated Sputum Sputum Culture - Final A&P Assessment and plan (1) Acute hypoxemic respiratory failure: Continue Decadron. Prophylactic Lovenox. Up to chair. PT evaluation. Continue supportive care and attempt to wean down oxygen as tolerating. Arrangements for LTAC if possible. Completed 5-day course of empiric antibiotic. Completed remdesivir. Wean down oxygen as tolerating. Continue supportive care. Follow-up D-dimer, CRP. Status: Acute (2) COVID-19: Severe COVID-19, as above. Status: Acute (3) Hypertension: Status: Acute (4) Type 2 diabetes mellitus: Uncontrolled diabetes: A1c 10. Negative urine, serum ketones. Insulin sliding scale at high-dose protocol every 6 hours, Lantus to 30 units twice daily. Status: Acute Additional A&P Information Echocardiogram shows an EF 55% with no regional wall motion abnormality, trace TR, trivial pericardial effusion. Patient developing mild PRIMITIVO today. Received brief IV hydration with normal saline at 75 cc/h for 1 bag. Strict input output charting, daily weights. Acute kidney injury: Resolved. Hold lisinopril. Guarded prognosis. Attestations Medical Necessity Statement*: Continue admission for hypoxic respiratory failure secondary to severe COVID-19. 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
[2021-06-10] MEDS: insulin lispro 100 unit/1 mL SUBCUT (13:00)
[2021-06-10] MEDS: dexamethasone 4 mg/mL INJ 6 MG IVP (15:42)
[2021-06-10 17:58] LABS: Glucose Point of Care 95 mg/dL (70-110)
--- NOTE | 2021-06-10 19:13 | PC.NURSE ---
Shift SUmmary: Overall, uneventful shift. Patient was up to the chair for about 10 hours of the 12 hours shift. While repositioning form bed to chair, and during occaisonal bouts of coughing she desaturates into the low 80's, but recovers quickly. Total urine output has been 400 mL. Patient has adhered to fluid restriction. 560 ml intake out of 1500mL restriction. NUrse has updated family.
[2021-06-10] MEDS: enoxaparin 40 mg/0.4 mL Syringe SUBCUT (20:21)
[2021-06-11] VITALS (56 sets, daily range): BP systolic 87–159; BP diastolic 61–95; PULSE 58–103; RESP 14–63; TEMP 36.1; O2SAT 82–98
[2021-06-11] MEDS: ipratropium-albuterol 3 mL Neb INHALATION ×7 (00:24→23:26)
[2021-06-11 01:50] LABS: Glucose Point of Care 211 mg/dL (70-110)
[2021-06-11] MEDS: insulin lispro 100 unit/1 mL SUBCUT ×4 (01:56→16:55)
[2021-06-11] MEDS: famotidine 20 mg/2 mL INJ IVP ×2 (03:32→16:35)
[2021-06-11] MEDS: guaiFENesin-dextromethorphan UDC 10 mL 5 ML PO ×3 (04:12→16:36)
[2021-06-11 04:21] LABS: Basophils % 0.1 %; Eosinophils # 0.1 10^3/uL (0.0-0.8); Eosinophils % 0.9 %; Hematocrit 41.3 % (37.0-47.0); Lymphocytes # 0.7 10^3/uL (0.8-4.8); Lymphocytes % 6.2 %; Mean Corpuscular HGB Conc 33.9 g/dL (30.0-36.0); Mean Corpuscular Hemoglobin 30.5 pg (28.0-34.0); Mean Platelet Volume 8.8 fL (7.4-10.4); Monocytes # 0.4 10^3/uL (0.2-0.9); Monocytes % 3.2 %; Neutrophils # 9.73 10^3/uL (1.8-7.7); Neutrophils % 88.1 %; Nucleated Red Blood Cells % 0 %; Platelet Count 264 10^3/cmm (130-400); Red Blood Count 4.59 10^6/uL (4.1-5.3); Red Cell Distribution Width 12.5 % (12.1-15.1); White Blood Count 11.1 10^3/uL (4.0-10.0)
[2021-06-11 04:24] LABS: D Dimer 1.53 ug/mIFEU (0-0.59)
[2021-06-11 04:34] LABS: Alanine Aminotransferase 33 U/L (0-33); Albumin Level 3.1 g/dL (3.5-5.2); Alkaline Phosphatase 52 IU/L (35-105); Blood Urea Nitrogen 22 mg/dL (8-23); Calcium 8.5 mg/dL (8.5-10.5); Carbon Dioxide 23 mmol/L (22-29); Chloride 100 mmol/L (98-107); Glucose 171 mg/dL (65-115); Osmolality Calculated 285 mOsm/kg (285-295); Sodium 134 mmol/L (136-145); Total Bilirubin 0.5 mg/dL (0.15-1.2); Total Protein 5.1 g/dL (6.6-8.7)
[2021-06-11 04:36] LABS: Anion Gap 15.5 (5-19); Aspartate Amino Transferase 28 U/L (0-32); Potassium 4.5 mmol/L (3.5-5.1)
[2021-06-11 04:47] LABS: Glucose Point of Care 145 mg/dL (70-110)
[2021-06-11] MEDS: budesonide 0.5 mg/2 mL Neb INHALATION ×2 (08:26→20:13)
[2021-06-11] MEDS: ascorbic acid 500 mg Tablet PO (08:30)
[2021-06-11] MEDS: ferrous gluconate 324 mg Tablet PO ×2 (08:30→16:36)
[2021-06-11] MEDS: zinc gluconate 50 mg Tablet PO (08:30)
[2021-06-11] MEDS: levothyroxine 88 mcg Tablet PO (08:30)
[2021-06-11] MEDS: benzonatate 100 mg Capsule 200 MG PO ×3 (08:30→20:52)
[2021-06-11] MEDS: insulin glargine 100 units/1 mL 30 UNIT SUBCUT ×2 (08:31→16:55)
--- NOTE | 2021-06-11 10:16 | PC.SOCIAL ---
IMM Update: pg 2 of IMM updated and reviewed w/ patients daughter Skyla via telephone.
--- NOTE | 2021-06-11 10:48 | PC.NURSE ---
up in chair and to bedside commode some dyspnea with any active encouraged is
[2021-06-11 11:50] LABS: Glucose Point of Care 206 mg/dL (70-110)
[2021-06-11] MEDS: dexamethasone 4 mg/mL INJ 6 MG IVP (16:35)
[2021-06-11 16:59] LABS: Glucose Point of Care 149 mg/dL (70-110)
--- NOTE | 2021-06-11 19:50 | PC.NURSE ---
O2 sat 72 80% HHF, NRB placed RT notifed, Fio2 increaed to 100% per RT
--- NOTE | 2021-06-11 20:07 | PM.PN ---
Subjective Subjective: Interval history: Still intermittent cough. Denies chest pain or pressure. No headache nausea vomiting or diarrhea. Vitals/I&O/Wt Last Vital Signs Temp 97 F L 06/11/21 14:00 Pulse 97 06/11/21 18:00 Resp 23 H 06/11/21 18:00 BP 157/84 06/11/21 18:00 Pulse Ox 91 06/11/21 18:00 06/11/21 06/11/21 06/11/21 06:59 14:59 22:59 Intake Total 350 / 350 350 / 700 Output Total 325 / 725 450 / 450 Balance -325 / 75 350 / 350 -100 / 250 Weight last 48 hrs Weight 82.554 kg Weight 81.964 kg Physical Exam Const: COMMON NORMALS: no acute distress and patient oriented x3 HENMT: COMMON NORMALS: oropharynx normal Neck/C-Spine: COMMON NORMALS: no JVD Resp: COMMON NORMALS: normal respiratory effort and clear to auscultation bilaterally EFFORT & INSPECTION: Yes able to speak in complete sentences AUSCULTATION: clear to auscultation bilaterally Cardio: COMMON NORMALS: no JVD, regular rhythm, S1 normal heart sound present, S2 normal heart sound present and No murmurs present (Cardio) RHYTHM: regular rhythm HEART SOUNDS: S1 normal heart sound present and S2 normal heart sound present GI: COMMON NORMALS: Normal to inspection, nondistended, normoactive bowel sounds present, Soft to palpation and non-tender PALPATION: Yes Soft to palpation Extremity: COMMON NORMALS: no joint enlargement and no pedal edema GENERAL: Yes edema (Trace LLE) Neuro: COMMON NORMALS: patient oriented x3 and moves all extremities Skin: COMMON NORMALS: no rashes or lesions noted GENERAL SKIN EXAM: no rashes or lesions noted Urinary Catheter Management^: Clement: Cath Placed During This Visit: yes Reason for Continuing Indwelling Catheter: Accurate Measurement of Urinary Output in Critically Ill Patients Urinary Catheter Date of Insertion: 06/04/21 Urinary Catheter Time of Insertion: 20:30 Data : 06/11/21 03:36 06/11/21 03:36 A&P Assessment and plan (1) Acute hypoxemic respiratory failure: Has had no additional changes this morning. Persistent cough, will increase dose of Robitussin. Continue benzonatate. Continue Decadron. Prophylactic Lovenox. Up to chair. PT as tolerating. Rising leukocytosis, worsened hypoxia this evening, will resume antibiotic. Repeat CXR. Continue supportive care and attempt to wean down oxygen as tolerating. Arrangements for LTAC if possible. Completed 5-day course of empiric antibiotic. Completed remdesivir. Wean down oxygen as tolerating. Continue supportive care. Follow-up D-dimer, CRP. Status: Acute (2) COVID-19: Severe COVID-19, as above. Status: Acute (3) Hypertension: Status: Acute (4) Type 2 diabetes mellitus: Uncontrolled diabetes: A1c 10. Negative urine, serum ketones. Insulin sliding scale at high-dose protocol every 6 hours, Lantus to 30 units twice daily. Status: Acute Additional A&P Information Echocardiogram shows an EF 55% with no regional wall motion abnormality, trace TR, trivial pericardial effusion. Patient developing mild PRIMITIVO today. Last week brief IV hydration with normal saline at 75 cc/h for 1 bag. Strict input output charting, daily weights. Acute kidney injury: Resolved. Hold lisinopril. Guarded prognosis. Attestations Medical Necessity Statement*: Continue admission for hypoxic respiratory failure with severe COVID-19. Coding Level of Care Code Acute Opthalmic Tech for [facility] Diagnoses Acute hypoxemic respiratory failure J96.01 COVID-19 U07.1 Hypertension I10 Type 2 diabetes mellitus E11.9
[2021-06-11] MEDS: levoFLOXacin 750 mg Tablet PO (20:51)
[2021-06-11] MEDS: enoxaparin 40 mg/0.4 mL Syringe SUBCUT (20:52)
[2021-06-11] MEDS: guaiFENesin-dextromethorphan UDC 10 mL PO (20:52)
[2021-06-12] VITALS (37 sets, daily range): BP systolic 108–168; BP diastolic 62–110; PULSE 66–112; RESP 18–44; TEMP -12.7–36.9; O2SAT 79–94
[2021-06-12 00:22] LABS: Glucose Point of Care 283 mg/dL (70-110)
[2021-06-12] MEDS: insulin lispro 100 unit/1 mL SUBCUT (00:27)
[2021-06-12] MEDS: guaiFENesin-dextromethorphan UDC 10 mL PO ×4 (02:43→19:45)
[2021-06-12] MEDS: famotidine 20 mg/2 mL INJ IVP ×2 (02:43→15:59)
[2021-06-12] MEDS: ipratropium-albuterol 3 mL Neb INHALATION ×5 (03:01→20:06)
[2021-06-12 05:21] LABS: Basophils % 0.2 %; Eosinophils # 0.1 10^3/uL (0.0-0.8); Hematocrit 40.9 % (37.0-47.0); Hemoglobin 13.5 g/dL (11.5-15.3); Lymphocytes # 0.6 10^3/uL (0.8-4.8); Lymphocytes % 5.7 %; Mean Corpuscular Hemoglobin 29.5 pg (28.0-34.0); Mean Corpuscular Volume 89.3 fl (81-99); Mean Platelet Volume 8.9 fL (7.4-10.4); Monocytes # 0.4 10^3/uL (0.2-0.9); Monocytes % 3.5 %; Neutrophils # 8.73 10^3/uL (1.8-7.7); Neutrophils % 87.6 %; Nucleated Red Blood Cells % 0 %; Platelet Count 253 10^3/cmm (130-400); Red Blood Count 4.58 10^6/uL (4.1-5.3); Red Cell Distribution Width 12.7 % (12.1-15.1)
[2021-06-12 05:43] LABS: Alanine Aminotransferase 31 U/L (0-33); Albumin Level 2.9 g/dL (3.5-5.2); Alkaline Phosphatase 63 IU/L (35-105); Anion Gap 14.8 (5-19); Aspartate Amino Transferase 20 U/L (0-32); Blood Urea Nitrogen 21 mg/dL (8-23); Calcium 9.2 mg/dL (8.5-10.5); Carbon Dioxide 24 mmol/L (22-29); Chloride 103 mmol/L (98-107); Glucose 128 mg/dL (65-115); Osmolality Calculated 289 mOsm/kg (285-295); Potassium 4.8 mmol/L (3.5-5.1); Sodium 137 mmol/L (136-145); Total Bilirubin 0.5 mg/dL (0.15-1.2); Total Protein 4.9 g/dL (6.6-8.7)
--- NOTE | 2021-06-12 06:00 | XRR_ITS ---
PROCEDURE INFORMATION: Exam: XR Chest Exam date and time: 06/12/2021 6:00 AM Age: 65 years old Clinical indication: Dyspnea; Additional info: Hypoxia TECHNIQUE: Imaging protocol: XR of the chest. Views: 1 view. COMPARISON: CR XR chest 1V portable [id number] 06/09/2021 4:41 AM FINDINGS: Lungs: Slight interval worsening of moderate to severe mid and lower lung field opacities most consistent with pneumonia. Pleural spaces: Unremarkable. No pleural effusion. No pneumothorax. Heart/Mediastinum: Unremarkable. No cardiomegaly. Bones/joints: Unremarkable. XR/XR chest 1V portable [id number] IMPRESSION: Slight interval worsening of moderate to severe mid and lower lung field opacities most consistent with pneumonia.
[2021-06-12 06:11] LABS: D Dimer 1.78 ug/mIFEU (0-0.59)
[2021-06-12] MEDS: budesonide 0.5 mg/2 mL Neb INHALATION ×2 (08:09→20:07)
[2021-06-12 08:17] LABS: Glucose Point of Care 68 mg/dL (70-110)
[2021-06-12] MEDS: levothyroxine 88 mcg Tablet PO (08:28)
[2021-06-12] MEDS: benzonatate 100 mg Capsule 200 MG PO ×3 (08:28→19:46)
[2021-06-12] MEDS: ferrous gluconate 324 mg Tablet PO ×2 (08:28→17:10)
[2021-06-12] MEDS: zinc gluconate 50 mg Tablet PO (08:28)
[2021-06-12] MEDS: ascorbic acid 500 mg Tablet PO (08:28)
[2021-06-12 10:00] LABS: Glucose Point of Care 104 mg/dL (70-110)
[2021-06-12] MEDS: ALPRAZolam 0.5 mg Tablet 1 MG PO (11:24)
[2021-06-12 11:35] LABS: Glucose Point of Care 136 mg/dL (70-110)
--- NOTE | 2021-06-12 13:18 | PM.PN ---
Subjective Subjective: Interval history: States she is doing all right apart from episodes of anxiety when she is about to be moved or right after moving. She is agreeable with adding Xanax as needed. Denies chest pain or pressure, no headache, nausea vomiting or diarrhea. Encouraged her to use I-S 10 times an hour, continue with flutter valve. Vitals/I&O/Wt Last Vital Signs Temp 97 F L 06/11/21 14:00 Pulse 104 H 06/12/21 12:00 Resp 44 H 06/12/21 12:00 BP 143/110 06/12/21 12:00 Pulse Ox 88 L 06/12/21 12:00 06/11/21 06/12/21 06/12/21 22:59 06:59 14:59 Intake Total 350 / 700 250 / 250 Output Total 450 / 450 500 / 950 Balance -100 / 250 -500 / -250 250 / 250 Weight last 48 hrs Weight 83.461 kg Weight 82.554 kg Physical Exam Narrative: EXAM NARRATIVE: Up in chair. Const: COMMON NORMALS: no acute distress and patient oriented x3 HENMT: COMMON NORMALS: oropharynx normal Neck/C-Spine: COMMON NORMALS: no JVD Resp: COMMON NORMALS: normal respiratory effort and clear to auscultation bilaterally EFFORT & INSPECTION: Yes able to speak in complete sentences AUSCULTATION: clear to auscultation bilaterally Cardio: COMMON NORMALS: no JVD, regular rhythm, S1 normal heart sound present, S2 normal heart sound present and No murmurs present (Cardio) RHYTHM: regular rhythm HEART SOUNDS: S1 normal heart sound present and S2 normal heart sound present GI: COMMON NORMALS: Normal to inspection, nondistended, normoactive bowel sounds present, Soft to palpation and non-tender PALPATION: Yes Soft to palpation Extremity: COMMON NORMALS: no joint enlargement and no pedal edema GENERAL: Yes edema (Trace LLE) Neuro: COMMON NORMALS: patient oriented x3 and moves all extremities Skin: COMMON NORMALS: no rashes or lesions noted GENERAL SKIN EXAM: no rashes or lesions noted Urinary Catheter Management^: Clement: Cath Placed During This Visit: yes Reason for Continuing Indwelling Catheter: Accurate Measurement of Urinary Output in Critically Ill Patients Urinary Catheter Date of Insertion: 06/04/21 Urinary Catheter Time of Insertion: 20:30 Data : 06/12/21 04:40 06/12/21 04:40 A&P Assessment and plan (1) Acute hypoxemic respiratory failure: Has had no additional changes this morning. Persistent cough, will increase dose of Robitussin. Continue benzonatate. Continue Decadron. Prophylactic Lovenox. Up to chair. PT as tolerating. Course of antibiotic extended given some deterioration in oxygenation yesterday, has been having productive cough, yesterday worsened leukocytosis, today better. Continue Levaquin. Slight interval worsening of moderate to severe mid and lower lung field opacities on CXR. Continue supportive care and attempt to wean down oxygen as tolerating. Arrangements for LTAC if possible. Completed 5-day course of empiric antibiotic. Completed remdesivir. Wean down oxygen as tolerating. Follow-up D-dimer, CRP. Status: Acute (2) COVID-19: Severe COVID-19, as above. Status: Acute (3) Hypertension: Status: Acute (4) Type 2 diabetes mellitus: Uncontrolled diabetes: A1c 10. Negative urine, serum ketones. Insulin sliding scale at high-dose protocol every 6 hours, Lantus to 30 units twice daily. Status: Acute Additional A&P Information Echocardiogram shows an EF 55% with no regional wall motion abnormality, trace TR, trivial pericardial effusion. Patient developing mild PRIMITIVO today. Last week brief IV hydration with normal saline at 75 cc/h for 1 bag. Strict input output charting, daily weights. Acute kidney injury: Resolved. Hold lisinopril. Guarded prognosis. Attestations Medical Necessity Statement*: Continue admission for hypoxic respiratory failure, severe COVID-19. 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
[2021-06-12] MEDS: dexamethasone 4 mg/mL INJ 6 MG IVP (15:58)
[2021-06-12] MEDS: famotidine 20 mg Tablet PO (17:10)
[2021-06-12 17:17] LABS: Glucose Point of Care 120 mg/dL (70-110)
--- NOTE | 2021-06-12 18:17 | NUR.SHIFT ---
Shift Note Frequent safety and comfort rounds continue. Orders and/or nursing care completed as indicated. Patient monitored for response to intervention of added nerve medication to help relax). Education provided includes xanax uses and side effects []. Patient and/or quality audit representative understand. Will continue to monitor. Has had better day today up in chair most of day .
[2021-06-12] MEDS: enoxaparin 40 mg/0.4 mL Syringe SUBCUT (19:45)
[2021-06-12] MEDS: levoFLOXacin 750 mg Tablet PO (19:46)
[2021-06-12] MEDS: insulin glargine 100 units/1 mL 10 UNIT SUBCUT (20:10)
[2021-06-13] VITALS (36 sets, daily range): BP systolic 100–163; BP diastolic 59–95; PULSE 72–113; RESP 18–90; TEMP 36.3–37.1; O2SAT 84–95
[2021-06-13] MEDS: insulin lispro 100 unit/1 mL SUBCUT ×4 (00:30→20:06)
[2021-06-13] MEDS: guaiFENesin-dextromethorphan UDC 10 mL PO ×4 (02:45→20:05)
[2021-06-13] MEDS: ipratropium-albuterol 3 mL Neb INHALATION ×7 (03:21→23:25)
[2021-06-13 05:27] LABS: Basophils % 0.2 %; Eosinophils # 0.1 10^3/uL (0.0-0.8); Hematocrit 41.5 % (37.0-47.0); Hemoglobin 13.7 g/dL (11.5-15.3); Lymphocytes # 0.7 10^3/uL (0.8-4.8); Lymphocytes % 7.6 %; Mean Corpuscular Hemoglobin 29.5 pg (28.0-34.0); Mean Corpuscular Volume 89.4 fl (81-99); Mean Platelet Volume 8.8 fL (7.4-10.4); Monocytes # 0.5 10^3/uL (0.2-0.9); Monocytes % 4.7 %; Neutrophils # 8.28 10^3/uL (1.8-7.7); Neutrophils % 85.5 %; Nucleated Red Blood Cells % 0 %; Platelet Count 231 10^3/cmm (130-400); Red Blood Count 4.64 10^6/uL (4.1-5.3); Red Cell Distribution Width 12.5 % (12.1-15.1); White Blood Count 9.7 10^3/uL (4.0-10.0)
[2021-06-13 05:36] LABS: D Dimer 1.92 ug/mIFEU (0-0.59)
[2021-06-13 05:48] LABS: Alanine Aminotransferase 36 U/L (0-33); Alkaline Phosphatase 55 IU/L (35-105); Anion Gap 17.5 (5-19); Aspartate Amino Transferase 21 U/L (0-32); Blood Urea Nitrogen 22 mg/dL (8-23); Calcium 10.4 mg/dL (8.5-10.5); Carbon Dioxide 23 mmol/L (22-29); Chloride 101 mmol/L (98-107); Globulin 2.3 g/dL (1.3-4.6); Glucose 128 mg/dL (65-115); Osmolality Calculated 289 mOsm/kg (285-295); Potassium 4.5 mmol/L (3.5-5.1); Sodium 137 mmol/L (136-145); Total Bilirubin 0.5 mg/dL (0.15-1.2); Total Protein 5.3 g/dL (6.6-8.7)
--- NOTE | 2021-06-13 05:58 | PC.NURSE ---
Shift Note Frequent safety and comfort rounds continue. Orders and/or nursing care completed as indicated. Patient monitored for response to intervention and treatment(s). Education provided includes medication. Patient verbalizes understanding of teaching. Patient had an uneventful night, remains on heated high flow 40L and 80% FiO2. No wounds or skin issues noted at this time. Clement catheter drained 700 mls of urine overnight. Will continue to monitor.
[2021-06-13] MEDS: benzonatate 100 mg Capsule 200 MG PO ×3 (08:03→20:06)
[2021-06-13] MEDS: famotidine 20 mg Tablet PO ×2 (08:03→17:42)
[2021-06-13] MEDS: levothyroxine 88 mcg Tablet PO (08:03)
[2021-06-13] MEDS: zinc gluconate 50 mg Tablet PO (08:03)
[2021-06-13] MEDS: ferrous gluconate 324 mg Tablet PO ×2 (08:03→17:42)
[2021-06-13] MEDS: ascorbic acid 500 mg Tablet PO (08:03)
[2021-06-13] MEDS: budesonide 0.5 mg/2 mL Neb INHALATION ×2 (08:21→19:41)
--- NOTE | 2021-06-13 09:29 | PC.CHAP ---
Pastoral Care Encounter/Spiritual Assessment Type of Contact [] Declined fuel injection servicer visit [] Patient/Family/Request visit [] Outpatient visit [] Follow-up visit [] Physician referral [] Code/Alert [x] Routine visit [] Staff referral [] Actively dying [] Patient sleeping [] Family support [] [] Out of room [] Palliative care [] [] Receiving care in room [] Pre-surgical visit [] Trauma [] Long length of stay [x] ICU visit [] Other: Relational/Emotional Strength [] Patient feels connected with others/family/visitors/staff [] Distress [] Loneliness/isolation [] Abandonment Spirituality of Patient [] Person of Vilma [] Attends Holiness of their Vilma [] Believes in Prayer [] Reads Bible or Sabianism materials [] There are Spiritual issues to be addressed Printed Circuit Board Assembly Repairer Interventions [x] Prayer [] Active listening [] Non-anxious presence [] Spiritual/emotional support [] Crisis/trauma care [] Spiritual counseling [] Bereavement support [] Provided bereavement packet [] Provided Bible/devotional materials [] Provided toy/stuffed animal, coloring book to patient or family member [] Provided Communion [] Anointing/[place] [] Salvation [x] Completed spiritual assessment [] Other: Impact on Illness or Injury [] Angry [] Fearful [] Anxious [] Often cries [] Exhaustion [] Unable to work [] Unable to attend zoroastrian [] Unable to walk/stand [] Unable to read [] Unable to drive [] Unable to eat/drink [] Unable to sleep [] Unable to be with family [] Patient intubated [] Other: Summary Time spent with patient
[2021-06-13] MEDS: FUROsemide 10 mg/mL SDV 4mL 40 MG IVP (09:39)
[2021-06-13] MEDS: insulin glargine 100 units/1 mL 20 UNIT SUBCUT ×2 (09:39→20:07)
[2021-06-13] MEDS: ALPRAZolam 0.5 mg Tablet 1 MG PO (09:39)
[2021-06-13 09:40] LABS: NT Pro B Type Natriuretic Pept 300 pg/mL (0-125); Procalcitonin 0.09 ng/mL (0-0.5)
--- NOTE | 2021-06-13 09:59 | PC.SOCIAL ---
IMM updatd IMM dated and initialed and copy placed in chart. and copy placed in pts room
[2021-06-13] MEDS: dexamethasone 4 mg/mL INJ 6 MG IVP (14:18)
--- NOTE | 2021-06-13 16:40 | P.PN_ITS ---
Subjective Subjective: Interval history: Hospital course, labs appreciated. On examination lying comfortably in bed. Ate 80 to 90% of her food. Denies any nausea, vomiting, headache. Currently on 50 L 95% saturating in low 90s. Denies any headache. Discussed in detail regarding need for aggressive I-S and Acapella. Discussed that she needs to do every hourly to prevent intubation. Patient states he would try to do the same. Discussed about proning and Sammye proning as well. Nurse at bedside. Vitals/I&O/Wt Last Vital Signs Temp 98.7 F 06/13/21 07:00 Pulse 90 06/13/21 16:15 Resp 40 H 06/13/21 16:09 BP 103/59 06/13/21 16:00 Pulse Ox 90 06/13/21 16:09 06/13/21 06/13/21 06/13/21 06:59 14:59 22:59 Intake Total 100 / 700 270 / 270 Output Total 700 / 1250 250 / 250 800 / 1050 Balance -600 / -550 20 / 20 -800 / -780 Weight last 48 hrs Weight 84.907 kg Weight 83.461 kg Physical Exam Narrative: EXAM NARRATIVE: General: No acute distress, AOx3, weak, frail HEENT: PERRLA, pupils bilaterally equal and reactive Chest: Bilateral bronchial breath sounds, coarse crackles present bilaterally, equal good air entry bilaterally CVS: S1-S2 regular, no murmurs, no tachycardia, no gallops, no rubs Abdomen: Soft, nontender, no organomegaly, bowel sounds present Neuro: No focal deficits, no facial deformity, AO x3, power 5/5 in all limbs Urinary Catheter Management^: Clement: Cath Placed During This Visit: yes Reason for Continuing Indwelling Catheter: Accurate Measurement of Urinary Output in Critically Ill Patients Urinary Catheter Date of Insertion: 06/04/21 Urinary Catheter Time of Insertion: 20:30 Data : 06/13/21 04:55 06/13/21 04:55 A&P Assessment and plan (1) Acute hypoxemic respiratory failure: Hypoxia secondary to COVID-19 pneumonia: Severe disease Oxygen supplementation keeping saturation over 88%. Dexamethasone 6 mg daily. Have already finished 5-day course of remdesivir. Vitamin C, zinc. DuoNebs every 6 hours, budesonide twice daily Pulmonary toilet with incentive spirometry flutter valve. We will monitor inflammatory markers including CRP and D-dimer every 48 hours. Post 1 dose of Actemra. D-dimer elevated. CTA negative for pulmonary embolism. Continue prophylactic dose of Lovenox. We will continue to monitor D-dimer. If getting elevated will switch to treatment dose Lovenox. Repeat procalcitonin, BNP. Urine Legionella, bacterial antigen, MRSA swab negat luis. Blood cultures so far negative. Sputum culture so far negative. Low suspicion of bacterial infection for now. Finished 5-day course of Levaquin. Given hypoxia will try to keep patient as negative as possible. Echocardiogram appreciated. Repeat Lasix 40 mg stat. Strict input output charting, daily weights. Status: Acute (2) COVID-19: Severe COVID-19, as above. Status: Acute (3) Hypertension: Status: Acute (4) Type 2 diabetes mellitus: Uncontrolled diabetes: A1c 10. Negative urine, serum ketones. Insulin sliding scale at high-dose protocol before meals and at bedtime, Lantus to 20 units twice daily. Status: Acute Additional A&P Information Echocardiogram shows an EF 55% with no regional wall motion abnormality, trace TR, trivial pericardial effusion. Acute kidney injury: Resolved. Hold lisinopril. Guarded prognosis. Discussed in detail with patient and patient's daughter on phone. We discussed that patient unfortunately is requiring high oxygen supplementation and is at high risk of intubation. We discussed that patient would need to have aggressive pulmonary toilet to prevent from intubation. Daughter verbalized understanding and stated she believes that patient would be able to get over the same. We also discussed that if patient oxygen supplementation trends below 70% she might need aggressive pulmonary rehab. [facility]. Daughter verbalized understanding and is okay with the plan for now. Full code. Carb consistent mechanical soft diet Protonix for PUD prophylaxis. Lovenox for DVT prophylaxis Attestations Medical Necessity Statement*: Requires further hospitalization for hypoxic respiratory failure secondary COVID-19 pneumonia while patient is requiring high heated high flow oxygen supplementation. Critical Care Time: The high probability of a clinically significant, sudden o r life threatening deterioration of the patient's [respiratory] system(s) required my full and direct attention, intervention and personal management. The critical care time is as shown. This time is in addition to time spent performing any reported procedures but includes the following: [x] Data and vital sign review and interpretation [x] Patient assessment, examination and intervention [x] Documentation [x] Medication orders and management Critical Care Time (min): 90 Coding Level of Care Code Acute Second Facing Baster for [facility] Diagnoses Acute hypoxemic respiratory failure J96.01 COVID-19 U07.1 Hypertension I10 Type 2 diabetes mellitus E11.9
--- NOTE | 2021-06-13 18:34 | PC.NURSE ---
Shift Note: Uneventful shift. Patient up to chair since 1030. Frequent teaching throughout shift about position changes and encouragement of use of SI and Flutter valve. Patient needs great amount of encouragement of SI and Flutter valve use. Patient encouraged and provided self bathing and hygiene supplies. Education provided of breathing techniques and medication education upon administration. Patient verbalized understanding of all teachings today, however reinforcement is recommended. HHF 50L 95% oxygen
[2021-06-13] MEDS: enoxaparin 40 mg/0.4 mL Syringe SUBCUT (20:05)
[2021-06-13] MEDS: levoFLOXacin 750 mg Tablet PO (20:05)
[2021-06-14] VITALS (35 sets, daily range): BP systolic 102–142; BP diastolic 61–92; PULSE 66–118; RESP 20–45; TEMP 36.4–37.1; O2SAT 87–100
[2021-06-14] MEDS: guaiFENesin-dextromethorphan UDC 10 mL PO ×4 (01:50→19:57)
[2021-06-14] MEDS: ipratropium-albuterol 3 mL Neb INHALATION ×6 (03:11→23:26)
[2021-06-14 04:03] LABS: ABG PCO2 39.1 mmHg (35-45); ABG PH Result 7.47 (7.35-7.45); Arterial Blood Gas Hematocrit 44.8 % (37-47); Base Excess ABG 4.4 mmol/L (-2.0-2.0); Blood Gas Allen Test Pos; Blood Gas Sample Site Radial, right; Blood Gas Sample Type Arterial; Carboxyhemoglobin 0.3 %THgb (0.4-20.1); HCO3 ABG 28.4 mmol/L (22-26); HGB O2 Sat 94.1 % (95-100); Ionized Calcium Level - ABG 1.4 mmol/L (1.1-1.4); Methemoglobin 0.4 % (0.4-1.5); Oxygen Device NC; Oxygen Saturation ABG 94.8; PO2 ABG 70.1 mmHg (80.0-100.0); Potassium Level - ABG 4.4 mmol/L (3.5-5.0); Total Hemoglobin 14.6 g/dL (12-16)
[2021-06-14 04:54] LABS: Basophils % 0.3 %; Eosinophils # 0.1 10^3/uL (0.0-0.8); Eosinophils % 0.4 %; Hematocrit 42.8 % (37.0-47.0); Hemoglobin 13.9 g/dL (11.5-15.3); Lymphocytes # 0.8 10^3/uL (0.8-4.8); Lymphocytes % 6.6 %; Mean Corpuscular HGB Conc 32.5 g/dL (30.0-36.0); Mean Corpuscular Hemoglobin 29.9 pg (28.0-34.0); Mean Platelet Volume 9.1 fL (7.4-10.4); Monocytes # 0.4 10^3/uL (0.2-0.9); Monocytes % 3.1 %; Neutrophils # 10.44 10^3/uL (1.8-7.7); Neutrophils % 88.4 %; Nucleated Red Blood Cells % 0 %; Platelet Count 213 10^3/cmm (130-400); Red Blood Count 4.65 10^6/uL (4.1-5.3); Red Cell Distribution Width 12.8 % (12.1-15.1); White Blood Count 11.8 10^3/uL (4.0-10.0)
[2021-06-14 05:10] LABS: D Dimer 2.05 ug/mIFEU (0-0.59)
[2021-06-14 05:18] LABS: C Reactive Protein 1.1 mg/L (0.0-4.9)
[2021-06-14 05:19] LABS: Alanine Aminotransferase 36 U/L (0-33); Albumin Level 3.2 g/dL (3.5-5.2); Alkaline Phosphatase 64 IU/L (35-105); Anion Gap 14.6 (5-19); Aspartate Amino Transferase 18 U/L (0-32); Blood Urea Nitrogen 29 mg/dL (8-23); Calcium 9.5 mg/dL (8.5-10.5); Carbon Dioxide 27 mmol/L (22-29); Chloride 101 mmol/L (98-107); Glomerular Filtration Rate 62.8 mL/min (90-130); Glucose 151 mg/dL (65-115); Osmolality Calculated 295 mOsm/kg (285-295); Potassium 4.6 mmol/L (3.5-5.1); Sodium 138 mmol/L (136-145); Total Bilirubin 0.4 mg/dL (0.15-1.2); Total Protein 5.2 g/dL (6.6-8.7)
--- NOTE | 2021-06-14 05:39 | PC.NURSE ---
Shift Note Frequent safety and comfort rounds continue. Orders and/or nursing care completed as indicated. Patient monitored for response to intervention and treatment(s). Education provided includes deep breathing and IS. Patient verbalizes understanding of teaching. Patient remains on heated high flow 50L and 100% FiO2. Clement catheter drained 250 mls of urine overnight. Patient is alert and oriented x4. No wounds or skin issues noted at this time. Will continue to monitor.
--- NOTE | 2021-06-14 06:00 | XRR_ITS ---
PROCEDURE INFORMATION: Exam: XR Chest Exam date and time: 06/14/2021 6:00 AM Age: 65 years old Clinical indication: Dyspnea; Additional info: Covid TECHNIQUE: Imaging protocol: XR of the chest. Views: 1 view. Total images: 1 COMPARISON: CR (CHEST, ) 06/12/2021 4:54 AM FINDINGS: Lungs: Benign granulomatous disease of the lung is noted. Bilateral pulmonary opacities are again noted and appear unchanged. Pleural spaces: Unremarkable. No pleural effusion. No pneumothorax. Heart/Mediastinum: Heart size is stable when compared to the prior exam. Bones/joints: Osseous structures are unchanged from the prior exam. Other findings: X-ray is slightly rotated. XR/XR chest 1V portable [id number] IMPRESSION: Bilateral pulmonary opacities are again noted and appear unchanged.
[2021-06-14] MEDS: budesonide 0.5 mg/2 mL Neb INHALATION ×2 (07:42→19:59)
[2021-06-14] MEDS: levothyroxine 88 mcg Tablet PO (08:02)
[2021-06-14] MEDS: famotidine 20 mg Tablet PO ×2 (08:02→17:31)
[2021-06-14] MEDS: ascorbic acid 500 mg Tablet PO (08:02)
[2021-06-14] MEDS: benzonatate 100 mg Capsule 200 MG PO ×3 (08:02→19:57)
[2021-06-14] MEDS: zinc gluconate 50 mg Tablet PO (08:02)
[2021-06-14] MEDS: ferrous gluconate 324 mg Tablet PO ×2 (08:02→17:31)
[2021-06-14] MEDS: insulin glargine 100 units/1 mL 20 UNIT SUBCUT ×2 (08:03→19:59)
[2021-06-14] MEDS: ALPRAZolam 0.5 mg Tablet PO (08:24)
[2021-06-14] MEDS: FUROsemide 10 mg/mL SDV 4mL 40 MG IVP (09:12)
--- NOTE | 2021-06-14 13:17 | P.PN_ITS ---
Subjective Subjective: Interval history: Today morning seen sitting up in chair. Yesterday spent most of the day in chair. Working better with I-S and Acapella. Yesterday oxygen supplementation had been turned down to 85% 50 L but overnight was turned up again to 100% given desaturation down to low 80s. Today morning oxygen supplementation being turned down to 85%. Morning ABG appreciated. Vitals/I&O/Wt Last Vital Signs Temp 97.8 F 06/14/21 07:00 Pulse 106 H 06/14/21 12:00 Resp 40 H 06/14/21 12:00 BP 121/85 06/14/21 12:00 Pulse Ox 93 06/14/21 12:00 06/13/21 06/14/21 06/14/21 22:59 06:59 14:59 Intake Total 90 / 360 50 / 410 474 / 474 Output Total 1000 / 1250 250 / 1500 650 / 650 Balance -910 / -890 -200 / -1090 -176 / -176 Weight last 48 hrs Weight 84.907 kg Weight 84.907 kg Physical Exam Narrative: EXAM NARRATIVE: General: No acute distress, AOx3, weak, frail HEENT: PERRLA, pupils bilaterally equal and reactive Chest: Bilateral bronchial breath sounds, coarse crackles present bilaterally, equal good air entry bilaterally CVS: S1-S2 regular, no murmurs, no tachycardia, no gallops, no rubs Abdomen: Soft, nontender, no organomegaly, bowel sounds present Neuro: No focal deficits, no facial deformity, AO x3, power 5/5 in all limbs Urinary Catheter Management^: Clement: Cath Placed During This Visit: yes Reason for Continuing Indwelling Catheter: Accurate Measurement of Urinary Output in Critically Ill Patients Urinary Catheter Date of Insertion: 06/04/21 Urinary Catheter Time of Insertion: 20:30 Data : 06/14/21 04:30 06/14/21 04:30 A&P Assessment and plan (1) Acute hypoxemic respiratory failure: Hypoxia secondary to COVID-19 pneumonia: Severe disease Oxygen supplementation keeping saturation over 88%. Dexamethasone 6 mg daily. Have already finished 5-day course of remdesivir. Vitamin C, zinc. DuoNebs every 6 hours, budesonide twice daily Pulmonary toilet with incentive spirometry flutter valve. We will monitor inflammatory markers including CRP and D-dimer every 48 hours. Post 1 dose of Actemra. D-dimer elevated. CTA negative for pulmonary embolism. Continue prophylactic dose of Lovenox. We will continue to monitor D-dimer. If getting elevated will switch to treatment dose Lovenox. Repeat procalcitonin, BNP negative. Urine Legionella, bacterial antigen, MRSA swab negative. Blood cultures so far negative. Sputum culture so far negative. Low suspicion of bacterial infection for now. Plan to finish 5-day course of Levaquin on 06/16. Given hypoxia will try to keep patient as negative as possible. Echocardiogram appreciated. Repeat Lasix 40 mg stat. Net 1 L negative yesterday. Strict input output charting, daily weights. Status: Acute (2) COVID-19: Severe COVID-19, as above. Status: Acute (3) Hypertension: Status: Acute (4) Type 2 diabetes mellitus: Uncontrolled diabetes: A1c 10. Negative urine, serum ketones. Insulin sliding scale at high-dose protocol before meals and at bedtime, Lantus to 20 units twice daily. Status: Acute Additional A&P Information Echocardiogram shows an EF 55% with no regional wall motion abnormality, trace TR, trivial pericardial effusion. Acute kidney injury: Resolved. Hold lisinopril. Guarded prognosis. Discussed in detail with patient and patient's daughter on phone. We discussed that patient unfortunately is requiring high oxygen supplementation and is at high risk of intubation. We discussed that patient would need to have aggressive pulmonary toilet to prevent from intubation. Daughter verbalized understanding and stated she believes that patient would be able to get over the same. We also discussed that if patient oxygen supplementation trends below 70% she might need aggressive pulmonary rehab. [facility]. Daughter verbalized understanding and is okay with the plan for now. Full code. Carb consistent mechanical soft diet Protonix for PUD prophylaxis. Lovenox for DVT prophylaxis Plan for day: Continue with out of bed to chair, aggressive pulmonary toilet. Weaning oxygen supplementation keeping saturation around 86 to 88%. Repeat Lasix. Strict input output charting. Continue with Decadron and inhalation treatment. Discharge planning: Plan to [facility] to [facility] if and once oxygen supplementation requirement goes below 70% for aggressive pulmonary rehab. Daughter agreeable. Case management has been limited. Attestations Medical Necessity Statement*: Requires further hospitalization for management of hypoxic respiratory failure secondary COVID-19 while she requires high heated high flow oxygen supplementation. Critical Care Time: The high probability of a clinically significant, sudden or life threatening deterioration of the patient's [respiratory] system(s) required my full and direct attention, intervention and personal management. The critical care time is as shown. 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 Fwd Diagnoses Acute hypoxemic respiratory failure J96.01 COVID-19 U07.1 Hypertension I10 Type 2 diabetes mellitus E11.9
[2021-06-14] MEDS: insulin lispro 100 unit/1 mL SUBCUT ×2 (13:36→19:57)
--- NOTE | 2021-06-14 13:46 | PC.NURSE ---
Patients 1100 glucose was 105 so scheduled sliding scale was not given. Patient scheduled glucose at 1400 was 272. 12units insulin given per sliding scale. Q6 hr glucose test and MAR not matching.
[2021-06-14] MEDS: dexamethasone 4 mg/mL INJ 6 MG IVP (14:04)
[2021-06-14] MEDS: enoxaparin 40 mg/0.4 mL Syringe SUBCUT (19:57)
[2021-06-14] MEDS: levoFLOXacin 750 mg Tablet PO (19:57)
[2021-06-15] VITALS (32 sets, daily range): BP systolic 110–139; BP diastolic 69–94; PULSE 74–110; RESP 20–46; TEMP 36.5–37.1; O2SAT 86–100
[2021-06-15] MEDS: guaiFENesin-dextromethorphan UDC 10 mL PO ×4 (03:32→19:36)
[2021-06-15] MEDS: ipratropium-albuterol 3 mL Neb INHALATION ×6 (03:40→23:26)
[2021-06-15 04:28] LABS: Alanine Aminotransferase 38 U/L (0-33); Albumin Level 3.2 g/dL (3.5-5.2); Alkaline Phosphatase 59 IU/L (35-105); Anion Gap 14.4 (5-19); Aspartate Amino Transferase 21 U/L (0-32); Blood Urea Nitrogen 32 mg/dL (8-23); Calcium 9.9 mg/dL (8.5-10.5); Carbon Dioxide 27 mmol/L (22-29); Chloride 100 mmol/L (98-107); Glucose 88 mg/dL (65-115); Osmolality Calculated 290 mOsm/kg (285-295); Potassium 4.4 mmol/L (3.5-5.1); Sodium 137 mmol/L (136-145); Total Bilirubin 0.4 mg/dL (0.15-1.2); Total Protein 5.2 g/dL (6.6-8.7)
--- NOTE | 2021-06-15 05:47 | PC.NURSE ---
Shift Note Frequent safety and comfort rounds continue. Orders and/or nursing care completed as indicated. Patient monitored for response to intervention and treatment(s). Education provided includes IS and flutter valve. Patient verbalizes understanding of teaching. Patient had an uneventful evening, remains on heated high flow. No wounds or skin issues noted at this time. Clement catheter drained 480 mls of urine overnight. Will continue to monitor.
[2021-06-15 06:05] LABS: Basophils # 0.1 10^3/uL (0.0-0.1); Basophils % 0.4 %; Eosinophils # 0.1 10^3/uL (0.0-0.8); Eosinophils % 0.4 %; Hematocrit 39.7 % (37.0-47.0); Hemoglobin 13.3 g/dL (11.5-15.3); Lymphocytes # 1.1 10^3/uL (0.8-4.8); Lymphocytes % 8.7 %; Mean Corpuscular HGB Conc 33.5 g/dL (30.0-36.0); Mean Corpuscular Hemoglobin 30.1 pg (28.0-34.0); Mean Corpuscular Volume 89.8 fl (81-99); Monocytes # 0.7 10^3/uL (0.2-0.9); Monocytes % 5.5 %; Neutrophils # 10.66 10^3/uL (1.8-7.7); Neutrophils % 84.1 %; Nucleated Red Blood Cells % 0 %; Platelet Count 189 10^3/cmm (130-400); Red Blood Count 4.42 10^6/uL (4.1-5.3); Red Cell Distribution Width 12.6 % (12.1-15.1); White Blood Count 12.7 10^3/uL (4.0-10.0)
[2021-06-15] MEDS: budesonide 0.5 mg/2 mL Neb INHALATION ×2 (08:17→20:13)
[2021-06-15] MEDS: ALPRAZolam 0.5 mg Tablet PO ×3 (08:21→21:11)
[2021-06-15] MEDS: famotidine 20 mg Tablet PO ×2 (08:21→17:21)
[2021-06-15] MEDS: benzonatate 100 mg Capsule 200 MG PO ×3 (08:21→20:17)
[2021-06-15] MEDS: levothyroxine 88 mcg Tablet PO (08:21)
[2021-06-15] MEDS: zinc gluconate 50 mg Tablet PO (08:21)
[2021-06-15] MEDS: ferrous gluconate 324 mg Tablet PO ×2 (08:21→17:21)
[2021-06-15] MEDS: ascorbic acid 500 mg Tablet PO (08:21)
[2021-06-15] MEDS: insulin glargine 100 units/1 mL 20 UNIT SUBCUT ×2 (08:22→20:18)
--- NOTE | 2021-06-15 10:06 | PC.CHAP ---
Pastoral Care Encounter/Spiritual Assessment Type of Contact [] Declined tab builder visit [] Patient/Family/Request visit [] Outpatient visit [] Follow-up visit [] Physician referral [] Code/Alert [x] Routine visit [] Staff referral [] Actively dying [] Patient sleeping [] Family support [] [] Out of room [] Palliative care [] [] Receiving care in room [] Pre-surgical visit [] Trauma [] Long length of stay [x] ICU visit [x] Other: patient setting up in chair... Relational/Emotional Strength [] Patient feels connected with others/family/visitors/staff [] Distress [] Loneliness/isolation [] Abandonment Spirituality of Patient [] Person of Vilma [] Attends Scientology of their Vilma [] Believes in Prayer [] Reads Bible or Christian materials [] There are Spiritual issues to be addressed Sorority Supervisor Interventions [x] Prayer [] Active listening [] Non-anxious presence [] Spiritual/emotional support [] Crisis/trauma care [] Spiritual counseling [] Bereavement support [] Provided bereavement packet [] Provided Bible/devotional materials [] Provided toy/stuffed animal, coloring book to patient or family member [] Provided Communion [] Anointing/Page [] Salvation [x] Completed spiritual assessment [] Other: Impact on Illness or Injury [] Angry [] Fearful [] Anxious [] Often cries [] Exhaustion [] Unable to work [] Unable to attend amish [] Unable to walk/stand [] Unable to read [] Unable to drive [] Unable to eat/drink [] Unable to sleep [] Unable to be with family [] Patient intubated [] Other: Summary Time spent with patient
[2021-06-15 10:36] LABS: Glucose Point of Care 81 mg/dL (70-110)
[2021-06-15 10:36] LABS: Glucose Point of Care 310 mg/dL (70-110)
[2021-06-15 10:36] LABS: Glucose Point of Care 144 mg/dL (70-110)
[2021-06-15 10:36] LABS: Glucose Point of Care 105 mg/dL (70-110)
[2021-06-15 10:36] LABS: Glucose Point of Care 89 mg/dL (70-110)
[2021-06-15 10:36] LABS: Glucose Point of Care 116 mg/dL (70-110)
[2021-06-15 10:36] LABS: Glucose Point of Care 187 mg/dL (70-110)
[2021-06-15 10:37] LABS: Glucose Point of Care 245 mg/dL (70-110)
[2021-06-15 10:37] LABS: Glucose Point of Care 114 mg/dL (70-110)
[2021-06-15 10:37] LABS: Glucose Point of Care 351 mg/dL (70-110)
[2021-06-15 10:37] LABS: Glucose Point of Care 272 mg/dL (70-110)
--- NOTE | 2021-06-15 10:43 | PC.SOCIAL ---
IMM not updated IMM not updated as patient isn't accepted to [facility] in the next 24-48.
[2021-06-15] MEDS: insulin lispro 100 unit/1 mL SUBCUT ×3 (12:57→20:17)
[2021-06-15] MEDS: FUROsemide 10 mg/mL SDV 2mL 20 MG IVP (12:57)
[2021-06-15] MEDS: dexamethasone 4 mg/mL INJ 6 MG IVP (14:49)
[2021-06-15 15:36] LABS: Glucose Point of Care 169 mg/dL (70-110)
[2021-06-15 15:36] LABS: Glucose Point of Care 319 mg/dL (70-110)
--- NOTE | 2021-06-15 16:53 | P.PN_ITS ---
Subjective Subjective: Interval history: No acute events overnight. Patient seen sitting up in chair again today. Working with I-S and Acapella every hourly. Looking better. States feeling better. Oxygen supplementation during the day turned down to 45 L 60%. Maintaining saturation over 92%. Vitals/I&O/Wt Last Vital Signs Temp 98.1 F 06/15/21 04:00 Pulse 104 H 06/15/21 15:32 Resp 26 H 06/15/21 15:32 BP 121/72 06/15/21 06:00 Pulse Ox 93 06/15/21 15:32 06/15/21 06/15/21 06/15/21 06:59 14:59 22:59 Output Total 480 / 1280 Balance -480 / -386 Weight last 48 hrs Weight 84.907 kg Weight 84.907 kg Physical Exam Narrative: EXAM NARRATIVE: General: No acute distress, AOx3, weak, frail HEENT: PERRLA, pupils bilaterally equal and reactive Chest: Bilateral bronchial breath sounds, coarse crackles present bilaterally, equal good air entry bilaterally CVS: S1-S2 regular, no murmurs, no tachycardia, no gallops, no rubs Abdomen: Soft, nontender, no organomegaly, bowel sounds present Neuro: No focal deficits, no facial deformity, AO x3, power 5/5 in all limbs Urinary Catheter Management^: Clement: Cath Placed During This Visit: yes Reason for Continuing Indwelling Catheter: Accurate Measurement of Urinary Output in Critically Ill Patients Urinary Catheter Date of Insertion: 06/04/21 Urinary Catheter Time of Insertion: 20:30 Data : 06/15/21 05:57 06/15/21 03:44 A&P Assessment and plan (1) Acute hypoxemic respiratory failure: Hypoxia secondary to COVID-19 pneumonia: Severe disease Oxygen supplementation keeping saturation over 88%. Dexamethasone 6 mg daily. Have already finished 5-day course of remdesivir. Vitamin C, zinc. DuoNebs every 6 hours, budesonide twice daily Pulmonary toilet with incentive spirometry flutter valve. We will monitor inflammatory markers including CRP and D-dimer every 48 hours. Post 1 dose of Actemra. D-dimer elevated. CTA negative for pulmonary embolism. Continue prophylactic dose of Lovenox. We will continue to monitor D-dimer. If getting elevated will switch to treatment dose Lovenox. Repeat procalcitonin, BNP negative. Urine Legionella, bacterial antigen, MRSA swab negative. Blood cultures so far negative. Sputum culture so far negative. Low suspicion of bacterial infection for now. Plan to finish 5-day course of Levaquin on 06/16. Given hypoxia will try to keep patient as negative as possible. Echocardiogram appreciated. Repeat Lasix 20 mg stat. Strict input output charting, daily weights. Status: Acute (2) COVID-19: Severe COVID-19, as above. Status: Acute (3) Hypertension: Status: Acute (4) Type 2 diabetes mellitus: Uncontrolled diabetes: A1c 10. Negative urine, serum ketones. Insulin sliding scale at high-dose protocol before meals and at bedtime, Lantus to 20 units twice daily. Status: Acute Additional A&P Information Echocardiogram shows an EF 55% with no regional wall motion abnormality, trace TR, trivial pericardial effusion. Acute kidney injury: Resolved. Hold lisinopril. Guarded prognosis. Discussed in detail with patient and patient's daughter on phone. We discussed that patient unfortunately is requiring high oxygen supplementation and is at high risk of intubation. We discussed that patient would need to have aggressive pulmonary toilet to prevent from intubation. Daughter verbalized understanding and stated she believes that patient would be able to get over the same. We also discussed that if patient oxygen supplementation trends below 70% she might need aggressive pulmonary rehab. [facility]. Daughter verbalized understanding and is okay with the plan for now. Full code. Carb consistent mechanical soft diet Protonix for PUD prophylaxis. Lovenox for DVT prophylaxis Plan for day: Continue out of bed to chair, aggressive I-S and Acapella. Weaning oxygen keeping saturation between 86 to 88%. Lasix 20 mg. Dexamet hasone. Discharge planning: [facility] to [facility]. [facility] air of oxygen supplementation. Working on prior authorization. Attestations Medical Necessity Statement*: Requires further hospitalization for management of acute hypoxic respiratory failure secondary COVID-19 as patient remains heated high flow dependent. Critical Care Time: The high probability of a clinically significant, sudden or life threatening deterioration of the patient's [respiratory] system(s) required my full and direct attention, intervention and personal management. The critical care time is as shown. 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
[2021-06-15] MEDS: levoFLOXacin 750 mg Tablet PO (19:36)
--- NOTE | 2021-06-15 19:50 | PC.NURSE ---
Shift Note: Pt sat up n chair all shift again today. She works herself up and almost hyperventilates at time., then her O2 sats drop to low 80's. When she is not thinking about it, i.e. distracted her O 2 sats stay above 90%. Due to this her Oxygen amount has fluctuated through out the shift, she finished this shift at 40 liters and 60%. She struggles at transfer to chair in am with her breathing. Her appetite is back, she eats most of every meal. SHe remains on a fluid restriction due to COVID. She received Lasix this shift and had a urine output of 1000ml. Frequent safety and comfort rounds continue. Orders and/or nursing care completed as indicated. Patient monitored for response to intervention and treatment(s). Education provided includes Oxygenation, anxiety and relaxation, Patient and/or client account representative verbalizes understanding but needs re-enforcement. Will continue to monitor.
[2021-06-15] MEDS: enoxaparin 40 mg/0.4 mL Syringe SUBCUT (20:18)
[2021-06-16] VITALS (24 sets, daily range): BP systolic 107–147; BP diastolic 70–91; PULSE 75–110; RESP 16–43; TEMP 36.6–37.1; O2SAT 86–96
[2021-06-16] MEDS: ipratropium-albuterol 3 mL Neb INHALATION ×5 (03:21→20:24)
[2021-06-16] MEDS: guaiFENesin-dextromethorphan UDC 10 mL PO ×4 (03:30→20:06)
[2021-06-16 05:02] LABS: Basophils % 0.2 %; Eosinophils % 0.1 %; Hematocrit 43.8 % (37.0-47.0); Hemoglobin 14.3 g/dL (11.5-15.3); Lymphocytes % 7.9 %; Mean Corpuscular HGB Conc 32.6 g/dL (30.0-36.0); Mean Corpuscular Hemoglobin 29.9 pg (28.0-34.0); Mean Corpuscular Volume 91.4 fl (81-99); Monocytes # 0.6 10^3/uL (0.2-0.9); Monocytes % 4.8 %; Neutrophils # 11.15 10^3/uL (1.8-7.7); Neutrophils % 86.1 %; Nucleated Red Blood Cells % 0 %; Platelet Count 210 10^3/cmm (130-400); Red Blood Count 4.79 10^6/uL (4.1-5.3); Red Cell Distribution Width 12.8 % (12.1-15.1); White Blood Count 12.9 10^3/uL (4.0-10.0)
[2021-06-16 05:17] LABS: D Dimer 2.26 ug/mIFEU (0-0.59)
[2021-06-16 05:25] LABS: Alanine Aminotransferase 32 U/L (0-33); Albumin Level 3.2 g/dL (3.5-5.2); Alkaline Phosphatase 63 IU/L (35-105); Anion Gap 16.5 (5-19); Aspartate Amino Transferase 21 U/L (0-32); Blood Urea Nitrogen 30 mg/dL (8-23); Calcium 9.5 mg/dL (8.5-10.5); Carbon Dioxide 27 mmol/L (22-29); Chloride 101 mmol/L (98-107); Globulin 2.4 g/dL (1.3-4.6); Glomerular Filtration Rate 62.8 mL/min (90-130); Glucose 67 mg/dL (65-115); Osmolality Calculated 294 mOsm/kg (285-295); Potassium 4.5 mmol/L (3.5-5.1); Sodium 140 mmol/L (136-145); Total Bilirubin 0.6 mg/dL (0.15-1.2); Total Protein 5.6 g/dL (6.6-8.7)
[2021-06-16 05:27] LABS: C Reactive Protein 0.6 mg/L (0.0-4.9)
[2021-06-16] MEDS: ALPRAZolam 0.5 mg Tablet PO ×2 (05:44→16:06)
--- NOTE | 2021-06-16 06:00 | XR_ITS ---
WS: [id number] XR chest 1V portable [id number] REASON FOR EXAM: covid FINDINGS: Compared to the previous examination of 06/14/2021 there has been minor improvement in the diffuse miladys ateral lower lung field opacities. No other interval change or new finding. XR/XR chest 1V portable [id number] IMPRESSION: Minor improvement.
[2021-06-16] MEDS: budesonide 0.5 mg/2 mL Neb INHALATION ×2 (09:13→20:24)
[2021-06-16] MEDS: ascorbic acid 500 mg Tablet PO (09:42)
[2021-06-16] MEDS: ferrous gluconate 324 mg Tablet PO ×2 (09:42→17:50)
[2021-06-16] MEDS: insulin glargine 100 units/1 mL 20 UNIT SUBCUT ×2 (09:42→20:07)
[2021-06-16] MEDS: benzonatate 100 mg Capsule 200 MG PO ×3 (09:42→20:07)
[2021-06-16] MEDS: zinc gluconate 50 mg Tablet PO (09:42)
[2021-06-16] MEDS: levothyroxine 88 mcg Tablet PO (09:42)
[2021-06-16] MEDS: famotidine 20 mg Tablet PO ×2 (09:42→17:50)
--- NOTE | 2021-06-16 12:09 | P.PN_ITS ---
Subjective Subjective: Interval history: Patient sitting by side of bed. States she has anxiety on and off. Feels like her breathing is getting better. She states appetite improved. Vitals/I&O/Wt Last Vital Signs Temp 98.0 F 06/16/21 04:00 Pulse 94 06/16/21 11:30 Resp 16 06/16/21 11:29 BP 125/82 06/16/21 06:00 Pulse Ox 92 06/16/21 11:30 06/15/21 06/16/21 06/16/21 22:59 06:59 14:59 Intake Total 450 / 1150 360 / 360 Output Total 1000 / 1000 400 / 1400 Balance -550 / 150 -400 / -250 360 / 360 Weight last 48 hrs Weight 83.96 kg Weight 84.907 kg Physical Exam Narrative: EXAM NARRATIVE: patient alert, no acute distress. Chronically ill appearing Const: COMMON NORMALS: patient oriented x3 and alert ORIENTATION/CONSCIOUSNESS: Yes oriented to person HENMT: COMMON NORMALS: normocephalic and atraumatic HEAD & SCALP: norm ocephalic and atraumatic FACE & SINUS: sinuses nontender NOSE: Normal nares present MOUTH: Normal oral and palatal mucosa present Eye: COMMON NORMALS: Equal, round and reactive pupils present and conjunctivae normal CONJUNCTIVA: Yes conjunctivae normal PUPIL: Yes Equal, round and reactive pupils present Neck/C-Spine: COMMON NORMALS: full ROM, supple and no JVD Lymph: LYMPHATIC: no lymphadenopathy noted Chest: CHEST: Yes Symmetrical chest wall rise Resp: COMMON NORMALS: normal respiratory effort AUSCULTATION: diminished lung sounds bilateral in the lower lung goss Cardio: COMMON NORMALS: no JVD, regular rate, regular rhythm, S1 normal heart sound present and S2 normal heart sound present RATE: regular rate RHYTHM: regular rhythm HEART SOUNDS: S1 normal heart sound present and S2 normal heart sound present GI: COMMON NORMALS: Soft to palpation; negative for No hepatosplenomegaly present PALPATION: Yes Soft to palpation, No Tenderness to palpation present (GI), No Guarding due to palpation present (GI) and No No hepatosplenomegaly present RECTAL EXAM: deferred : COMMON NORMALS: Yes no CVA tenderness BLADDER/KIDNEY EXAM: Yes no CVA tenderness Back/Pelvis: COMMON NORMALS: no CVA tenderness Extremity: COMMON NORMALS: no calf tenderness GENERAL: Yes edema Neuro: COMMON NORMALS: patient oriented x3 SENSORIUM/ORIENTATION: Yes alert and Yes oriented to person SPEECH: speech normal Psych: COMMON NORMALS: mental status grossly normal, cooperative and normal affect APPEARANCE: Yes grossly normal Skin: COMMON NORMALS: no rashes or lesions noted, no wounds, turgor normal, no jaundice and no petechiae GENERAL SKIN EXAM: no rashes or lesions noted and turgor normal Urinary Catheter Management^: Clement: Cath Placed During This Visit: yes Reason for Continuing Indwelling Catheter: Accurate Measurement of Urinary Output in Critically Ill Patients Urinary Catheter Date of Insertion: 06/04/21 Urinary Catheter Time of Insertion: 20:30 Data : 06/16/21 04:45 06/16/21 04:45 A&P Assessment and plan (1) Acute hypoxemic respiratory failure: Hypoxia secondary to COVID-19 pneumonia: Severe disease Oxygen supplementation keeping saturation over 88%. Currently patient's oxygen requirements are 40 L and 60 percent FIO2 Dexamethasone 6 mg daily. Received Actemra x 1 Completed 5 days of remdesivir Vitamin C, zinc. DuoNebs every 6 hours, budesonide twice daily Pulmonary toilet with incentive spirometry flutter valve. We will monitor inflammatory markers including CRP and D-dimer every 48 hours. Post 1 dose of Actemra. D-dimer elevated. CTA negative for pulmonary embolism. Continue prophylactic dose of Lovenox. We will continue to monitor D-dimer. If getting elevated will switch to treatment dose Lovenox. Repeat procalcitonin, BNP negative. Urine Legionella, bacterial antigen, MRSA swab negative. Blood cultures so far negative. Sputum culture so far negative. Low suspicion of bacterial infection for now. Plan to finish 5-day course of Levaquin last day today 06/16/21 Given hypoxia secondary to COVID- dry lung starategy- monitor renal function closely Echo noted Lasix Strict input output charting, daily weights. Status: Acute (2) COVID-19: Severe COVID-19, as above. Status: Acute (3) Hypertension: stable. Status: Acute (4) Type 2 diabetes mellitus: Uncontrolled diabetes: A1c 10. Negative urine, serum ketones. Insulin sliding scale at high-dose protocol before meals and at bedtime, Lantus to 20 units twice daily. Status: Acute Attestations Medical Necessity Statement*: Patient continues to require ongoing hospitalization for high FIO2 and hypoxic respiratory failure due to COVID Coding Level of Care Code Acute Compliance Counsel for Chg Fwd Exam Comprehensive Diagnoses Acute hypoxemic respiratory failure J96.01 COVID-19 U07.1 Hypertension I10 Type 2 diabetes mellitus E11.9
[2021-06-16] MEDS: insulin lispro 100 unit/1 mL SUBCUT ×3 (12:14→20:08)
[2021-06-16] MEDS: dexamethasone 4 mg/mL INJ 6 MG IVP (14:59)
[2021-06-16] MEDS: enoxaparin 40 mg/0.4 mL Syringe SUBCUT (20:07)
[2021-06-16 20:17] LABS: Glucose Point of Care 68 mg/dL (70-110)
[2021-06-16 20:17] LABS: Glucose Point of Care 198 mg/dL (70-110)
[2021-06-16 20:17] LABS: Glucose Point of Care 186 mg/dL (70-110)
[2021-06-16 20:19] LABS: Glucose Point of Care 281 mg/dL (70-110)
[2021-06-16 20:19] LABS: Glucose Point of Care 361 mg/dL (70-110)
[2021-06-16 20:19] LABS: Glucose Point of Care 244 mg/dL (70-110)
--- NOTE | 2021-06-16 20:39 | PC.NURSE ---
Shift Note: Shift started off with her HHF at 45L and 80 % Pt sat up in chair this shift. She again struggled at transfer to chair this am, she started breathing over 40 times per minute, nearly hyperventilating which had her O2 sats down in the low 80's again. Frequent consistent reminders to deep breath , slow your breathing down done daily. her O2 sats back up to 9$% while she was distracted with breakfast. She has had repeated conversations about anxiety, hyperventilating and deep breathing is relaxing with multiple staff members thus far. She stated she did better today, she was trying to concentrate on it more. She received Xanax this afternoon. Per patient the Dexamethasone IVP makes her private parts burn, while it was being administered. At end of shift she was on 40liters 60% heated high flow. When speaking her voics is much stronger with less gasping. Her color has improved. Urine output adequate, Frequent safety and comfort rounds continue. Orders and/or nursing care completed as indicated. Patient monitored for response to intervention and treatment(s). Education provided includes Dexamethasone, ongoing breathing and relaxing discussions. Patient and/or inbound sales representative verbalizes understanding. Family provides extra encouragement for pt. . Will continue to monitor.
[2021-06-17] VITALS (29 sets, daily range): BP systolic 109–133; BP diastolic 62–98; PULSE 68–106; RESP 19–48; TEMP 36.6–36.9; O2SAT 75–99; BMI 31.6
[2021-06-17] MEDS: ipratropium-albuterol 3 mL Neb INHALATION ×6 (00:25→20:18)
[2021-06-17] MEDS: guaiFENesin-dextromethorphan UDC 10 mL PO ×4 (01:55→19:32)
[2021-06-17 03:40] LABS: Basophils % 0.2 %; Eosinophils % 0.2 %; Hematocrit 38.9 % (37.0-47.0); Hemoglobin 12.8 g/dL (11.5-15.3); Lymphocytes # 0.9 10^3/uL (0.8-4.8); Lymphocytes % 8.8 %; Mean Corpuscular HGB Conc 32.9 g/dL (30.0-36.0); Mean Corpuscular Volume 91.3 fl (81-99); Mean Platelet Volume 9.3 fL (7.4-10.4); Monocytes # 0.5 10^3/uL (0.2-0.9); Monocytes % 5.1 %; Neutrophils # 8.79 10^3/uL (1.8-7.7); Neutrophils % 84.7 %; Nucleated Red Blood Cells % 0 %; Platelet Count 177 10^3/cmm (130-400); Red Blood Count 4.26 10^6/uL (4.1-5.3); Red Cell Distribution Width 12.7 % (12.1-15.1); White Blood Count 10.4 10^3/uL (4.0-10.0)
[2021-06-17 04:02] LABS: Anion Gap 12.6 (5-19); Blood Urea Nitrogen 29 mg/dL (8-23); Calcium 9.3 mg/dL (8.5-10.5); Carbon Dioxide 28 mmol/L (22-29); Chloride 102 mmol/L (98-107); Glucose 116 mg/dL (65-115); Osmolality Calculated 293 mOsm/kg (285-295); Potassium 4.6 mmol/L (3.5-5.1); Sodium 138 mmol/L (136-145)
--- NOTE | 2021-06-17 04:02 | PC.NURSE ---
At the beginning of slot shift supervisor, Patients O2 dropped to low 70s while using the bedside commode. Patient appears to work herself up and hyperventilates. Patient was able to calm down and slow her breathing. She responds well to positive reassurance and motivation. She had a restful night sleep and remained comfortable throughout shift. Vitals were stable
[2021-06-17] MEDS: ALPRAZolam 0.5 mg Tablet PO ×2 (07:01→18:10)
[2021-06-17] MEDS: budesonide 0.5 mg/2 mL Neb INHALATION ×2 (08:35→20:18)
[2021-06-17] MEDS: ferrous gluconate 324 mg Tablet PO ×2 (09:17→18:10)
[2021-06-17] MEDS: benzonatate 100 mg Capsule 200 MG PO ×3 (09:17→20:29)
[2021-06-17] MEDS: levothyroxine 88 mcg Tablet PO (09:18)
[2021-06-17] MEDS: famotidine 20 mg Tablet PO ×2 (09:18→18:10)
[2021-06-17] MEDS: ascorbic acid 500 mg Tablet PO (09:18)
[2021-06-17] MEDS: zinc gluconate 50 mg Tablet PO (09:18)
[2021-06-17] MEDS: insulin glargine 100 units/1 mL 20 UNIT SUBCUT ×2 (09:19→20:30)
--- NOTE | 2021-06-17 09:47 | PC.SOCIAL ---
IMM update IMM updated with patient. Verbalized an understanding. Copy Pg 2 provided. Initialled, dated, timed, and placed in chart.
--- NOTE | 2021-06-17 10:00 | PC.NURSE ---
Pt up to chair for breakfast. . Hyperventilated, panic attack . She desated to 75%, She was not recovering as she had been previously , just yesterday. HHF turned up to 100% and Her O2 sats hovered in low *0's. Bipap started. notified. One time order for IVP Ativan received and admin.
--- NOTE | 2021-06-17 10:31 | XR_ITS ---
WS: [id number] XR chest 1V portable [id number] REASON FOR EXAM: respiratory failure FINDINGS: Diffuse lower lung opacities with air bronchograms. These findings are relatively unchanged compared to 06/16/2021. The patient has developed mild to moderate gaseous distention of the stomach compared to the previous examination. No other significant interval change or new finding identified. XR/XR chest 1V portable [id number] IMPRESSION: Stable lung opacities. Interval development of mild to moderate gaseous distent ion of the stomach.
[2021-06-17 10:44] LABS: Glucose Point of Care 85 mg/dL (70-110)
--- NOTE | 2021-06-17 11:00 | PC.NURSE ---
Pt recovered her O2 sats. BiPap off back to Heated high flow at 40L and 100%. Pt tolerating well, O2 sats 94%
[2021-06-17] MEDS: LORazepam 2 mg/mL INJ 1 mL 0.5 MG IVP ×2 (11:14→22:36)
[2021-06-17 11:41] LABS: Glucose Point of Care 151 mg/dL (70-110)
[2021-06-17] MEDS: insulin lispro 100 unit/1 mL SUBCUT ×3 (12:27→20:30)
--- NOTE | 2021-06-17 16:04 | PM.PN ---
Subjective Subjective: Interval history: Patient anxious- became very dyspneic and tachypneic this AM- was placed on BIPAP for short time. Now improved Medications: Reviewed: Yes Vitals/I&O/Wt Last Vital Signs Temp 98 F 06/16/21 18:00 Pulse 94 06/17/21 14:00 Resp 21 H 06/17/21 11:51 BP 122/82 06/17/21 06:00 Pulse Ox 94 06/17/21 11:51 06/17/21 06/17/21 06/17/21 06:59 14:59 22:59 Intake Total 300 / 1760 Output Total 1250 / 1600 Balance -950 / 160 Weight last 48 hrs Weight 86.183 kg Weight 83.96 kg Physical Exam Narrative: EXAM NARRATIVE: anxious, alert, oriented Const: COMMON NORMALS: average body habitus and patient oriented x3 HENMT: COMMON NORMALS: normocephalic and atraumatic HEAD & SCALP: normocephalic and atraumatic Eye: COMMON NORMALS: Equal, round and reactive pupils present, EOMs intact bilaterally, conjunctivae normal and no scleral icterus CONJUNCTIVA: Yes conjunctivae normal PUPIL: Yes Equal, round and reactive pupils present Neck/C-Spine: COMMON NORMALS: full ROM, no lymphadenopathy, supple and no JVD Chest: COMMONS NORMALS: normal inspection of the chest Resp: EFFORT & INSPECTION: Yes tachypneic AUSCULTATION: wheezes lower bilaterally Cardio: COMMON NORMALS: no JVD, S1 normal heart sound present and S2 normal heart sound present HEART SOUNDS: S1 normal heart sound present and S2 normal heart sound present OTHER: tachycardic with HR of 100-110 GI: COMMON NORMALS: Soft to palpation, non-tender and no masses PALPATION: Yes Soft to palpation Extremity: COMMON NORMALS: full ROM, capillary refill normal and no clubbing, cyanosis or edema Neuro: COMMON NORMALS: patient oriented x3 and moves all extremities Psych: COMMON NORMALS: mental status grossly normal and cooperative ATTITUDE: Yes calm Skin: COMMON NORMALS: no rashes or lesions noted, no wounds and turgor normal GENERAL SKIN EXAM: no rashes or lesions noted and turgor normal Urinary Catheter Management^: Clement: Cath Placed During This Visit: yes Reason for Continuing Indwelling Catheter: Accurate Measurement of Urinary Output in Critically Ill Patients Urinary Catheter Date of Insertion: 06/04/21 Urinary Catheter Time of Insertion: 20:30 Data : 06/17/21 02:54 06/17/21 02:54 A&P Assessment and plan (1) Acute hypoxemic respiratory failure: Hypoxia secondary to COVID-19 pneumonia: Severe disease Oxygen supplementation keeping saturation over 88%. Currently patient's oxygen requirements are 40 L and 60 percent FIO2- briefly was on BIPAP- CXR shows stable infiltrates. Dexamethasone 6 mg daily- received 14 days- stopped Received Actemra x 1 Completed 5 days of remdesivir Vitamin C, zinc. DuoNebs every 6 hours, budesonide twice daily Pulmonary toilet with incentive spirometry flutter valve. CTA negative for pulmonary embolism. Continue prophylactic dose of Lovenox. Repeat procalcitonin, BNP negative. Urine Legionella, bacterial antigen, MRSA swab negative. Blood cultures so far negative. Sputum culture so far negative. Low suspicion of bacterial infection for now. Completed 5 days of levaquin 06/16/21 Given hypoxia secondary to COVID- dry lung strategy- monitor renal function closely Echo noted Lasix Strict input output charting, daily weights. Status: Acute (2) COVID-19: Severe COVID-19, as above. Status: Acute (3) Hypertension: stable. Status: Acute (4) Type 2 diabetes mellitus: Uncontrolled diabetes: A1c 10. Negative urine, serum ketones. Insulin sliding scale at high-dose protocol before meals and at bedtime, Lantus to 20 units twice daily. Status: Acute Additional A&P Information Echocardiogram shows an EF 55% with no regional wall motion abnormality, trace TR, trivial pericardial effusion. Acute kidney injury: Resolved. Hold lisinopril. Guarded prognosis. Discussed in detail with patient and patient's daughter on phone. We discussed that patient unfortunately is requiring high oxygen supplementation and is at high risk of intubation. We discussed that patient would need to have aggressive pulmonary toilet to prevent from intubation. Daughter verbalized understanding and stated she believes that patient would be able to get over the same. We also discussed that if patient oxygen supplementation trends below 70% she might need aggressive pulmonary rehab. Progression needs to be transferred to [facility]. Daughter verbalized understanding and is okay with the plan for now. Full code. Carb consistent mechanical soft diet Protonix for PUD prophylaxis. Lovenox for DVT prophylaxis Discharge planning: Accepted to [facility]- unable to transfer today as respiratory status declined requiring use of BIPAP. Will continue to monitor Attestations Medical Necessity Statement*: Patient requires ongoing hospitalization and management for acute illness including respiratory failure with hypoxia due to severe COVID Coding Level of Care Code Acute Education Professor for g Fwd Exam Comprehensive Diagnoses Acute hypoxemic respiratory failure J96.01 COVID-19 U07.1 Hypertension I10 Type 2 diabetes mellitus E11.9
[2021-06-17 17:40] LABS: Glucose Point of Care 185 mg/dL (70-110)
--- NOTE | 2021-06-17 17:44 | P.DS_ITS ---
Discharge Providers Date of Admission: 06/04/21 14:53 Date of Discharge: June 17, 2021 Attending Provider at Admission: Fidel Delatorre MD Attending Provider at Discharge: Sara Burnette MD Primary Care Provider: Anthony Hugo MD Diagnoses at Discharge Discharge Diagnosis (1) Acute hypoxemic respiratory failure: Status: Acute (2) COVID-19: Status: Acute (3) Hypertension: Status: Acute (4) Type 2 diabetes mellitus: Status: Acute Reason for Visit Reason for Visit: covid +:78% O2 Hospital Course Hospital Course Patient is 65 year old female with h/o DM type 2, HTN and hyperlipidemia who was admitted with acute respiratory failure with hypoxia due to severe COVID. Patient received IV decadron, high flow oxygen supplementation, remdesivir and one dose of actemra. Patient also was given empiric antibiotics for presumed secondary bacterial infection. She remained afebrile without signs of infection- and antibiotics discontinued. Patient continues to require high flow supplemental oxygen. Patient has received maximal benefit from acute hospitalization and has been accepted to [facility] for ongoing care and management. Patient agreeable for transfer. I have discussed with Dr Jakob Clement accepting physician at [facility] and he has graciously accepted patient in transfer. Physical Exam Narrative: EXAM NARRATIVE: Oriented, alert Const: COMMON NORMALS: patient oriented x3 HENMT: COMMON NORMALS: normocephalic, atraumatic and hearing grossly normal bilaterally HEAD & SCALP: normocephalic and atraumatic Neck/C-Spine: COMMON NORMALS: full ROM, supple, no JVD and Thyroid normal THYROID: Thyroid normal Resp: COMMON NORMALS: No retractions and No use of accessory muscles Cardio: COMMON NORMALS: no JVD, regular rate, regular rhythm and No murmurs present (Cardio) RATE: regular rate RHYTHM: regular rhythm : COMMON NORMALS: Yes no CVA tenderness BLADDER/KIDNEY EXAM: Yes no CVA tenderness Back/Pelvis: COMMON NORMALS: no CVA tenderness Extremity: COMMON NORMALS: normal to inspection, full ROM, no clubbing, cyanosis or edema and no pedal edema Neuro: COMMON NORMALS: patient oriented x3 Psych: COMMON NORMALS: mental status grossly normal and normal affect Skin: COMMON NORMALS: no rashes or lesions noted and no wounds GENERAL SKIN EXAM: no rashes or lesions noted Urinary Catheter Management^: Clement: Cath Placed During This Visit: yes Reason for Continuing Indwelling Catheter: Accurate Measurement of Urinary Output in Critically Ill Patients Urinary Catheter Date of Insertion: 06/04/21 Urinary Catheter Time of Insertion: 20:30 Discharge Data Data Completed and Pending: Completed Studies During Hospitalization Category Date Time Status CT angio chest PE protcl [id number] Urge nt Cat Scan 06/04/21 13:14 Completed XR chest 1V [place] ble [id number] Q48H Exams 06/05/21 06:00 Completed XR chest 1V annabella ble [id number] Q48H Exams 06/07/21 06:00 Completed XR chest 1V annabella ble [id number] Q48H Exams 06/09/21 06:00 Completed XR chest 1V annabella ble [id number] Q48H Exams 06/14/21 06:00 Completed XR chest 1V annabella ble [id number] Q48H Exams 06/16/21 06:00 Completed XR chest 1V annabella ble [id number] Routine Exams 06/12/21 06:00 Completed XR chest 1V annabella ble [id number] Stat Exams 06/04/21 13:12 Completed XR chest 1V annabella ble [id number] Urgent Exams 06/17/21 10:31 Completed CV. echo complete * [id number] Routine Ultrasound 06/05/21 15:15 Completed Pending at discharge Category Date Time Status XR chest 1V annabella ble [id number] Q48H Exams 06/18/21 06:00 Ordered Basic Metabolic P adriana AM LABS Lab 06/18/21 04:00 Ordered Basic Metabolic P adriana AM LABS Lab 06/19/21 04:00 Ordered Complete Blood Co unt w/Auto AM LABS Lab 06/18/21 04:00 Ordered Complete Blood Co unt w/Auto AM LABS Lab 06/19/21 04:00 Ordered Labs from last 24 hours 06/17/21 06/17/21 06/17/21 17:16 11:19 07:27 WBC RBC Hgb Hct MCV MCH MCHC RDW Plt Count MPV Neut % (Auto) Lymph % (Auto) [place] % (Auto) Eos % (Auto) Baso % (Auto) Neut # (Auto) Lymph # (Auto) [place] # (Auto) Eos # (Auto) Baso # (Auto) Nucleated RBC % (a uto) Nucleated RBCs # Sodium Potassium Chloride Carbon Dioxide Anion Gap BUN Creatinine GFR Calculation Glucose POC Glucose 185 H 151 H 85 Calculated Osmolal ity Calcium 06/17/21 06/17/21 06/16/21 02:54 02:54 19:48 WBC 10.4 H RBC 4.26 Hgb 12.8 Hct 38.9 MCV 91.3 MCH 30.0 MCHC 32.9 RDW 12.7 Plt Count 177 MPV 9.3 Neut % (Auto) 84.7 Lymph % (Auto) 8.8 [place] % (Auto) 5.1 Eos % (Auto) 0.2 Baso % (Auto) 0.2 Neut # (Auto) 8.79 H Lymph # (Auto) 0.9 [place] # (Auto) 0.5 Eos # (Auto) 0.0 Baso # (Auto) 0.0 Nucleated RBC % (a uto) 0 Nucleated RBCs # 0.0 Sodium 138 Potassium 4.6 Chloride 102 Carbon Dioxide 28 Anion Gap 12.6 BUN 29 H Creatinine 0.8 GFR Calculation 72.0 L Glucose 116 H POC Glucose 361 H Calculated Osmolal ity 293 Calcium 9.3 06/16/21 06/16/21 06/16/21 16:40 11:39 07:39 WBC RBC Hgb Hct MCV MCH MCHC RDW Plt Count MPV Neut % (Auto) Lymph % (Auto) [place] % (Auto) Eos % (Auto) Baso % (Auto) Neut # (Auto) Lymph # (Auto) [place] # (Auto) Eos # (Auto) Baso # (Auto) Nucleated RBC % (a uto) Nucleated RBCs # Sodium Potassium Chloride Carbon Dioxide Anion Gap BUN Creatinine GFR Calculation Glucose POC Glucose 198 H 186 H 68 L Calculated Osmolal ity Calcium 06/15/21 06/15/21 19:31 17:11 WBC RBC Hgb Hct MCV MCH MCHC RDW Plt Count MPV Neut % (Auto) Lymph % (Auto) [place] % (Auto) Eos % (Auto) Baso % (Auto) Neut # (Auto) Lymph # (Auto) [place] # (Auto) Eos # (Auto) Baso # (Auto) Nucleated RBC % (a uto) Nucleated RBCs # Sodium Potassium Chloride Carbon Dioxide Anion Gap BUN Creatinine GFR Calculation Glucose POC Glucose 281 H 244 H Calculated Osmolal ity Calcium Vitals: Last Vital Signs Temp 98 F 06/16/21 18:00 Pulse 94 06/17/21 16:52 Resp 20 H 06/17/21 16:52 BP 122/82 06/17/21 06:00 Pulse Ox 94 06/17/21 16:52 Discharge Plan Discharge Patient Disposition: Xfer [facility] Condition: Stable Prescriptions: No Action albuterol sulfate 90 mcg/actuation HFA aerosol inhaler 2 inh INHALATION Q6H PRN (Reason: shortness of breath or wheezing) Qty: 8 RF: 0 Lantus U-100 Insulin 100 unit/mL Solution 30 unit SUBCUT DAILY RF: 0 azithromycin 250 mg Tablet See Rx Instructions .ROUTE .COMPLEX RF: 0 dexamethasone 6 mg Tablet 6 mg PO DAILY RF: 0 levothyroxine 88 mcg Tablet 88 mcg PO DAILY RF: 0 lisinopril 10 mg Tablet 10 mg PO DAILY RF: 0 glimepiride 4 mg Tablet 4 mg PO BID RF: 0 Discharge Orders: Transfer Out of Facility (Order); Ordered 06/17/21 Ordered By: Sara Burnette Referrals: Anthony Hugo MD [Primary Care Provider] - Discharge Diet: Diabetic Discharge Activity: Increase activity as tolerated Discharge Attestations Time Spent in Discharge Care*: greater than 30 min Specific Discharge Activities: educating patient, discussing with pcp/other providers, discussing with family service caseworker/social workers/dc planners, documenting/other paperwork and evaluating patient/reviewing data Quality Metrics Clinical Quality Measures During this hospital stay, did patient experience: None Coding Level of Care Code Acute Chg FW DC note Exam Comprehensive Diagnoses Acute hypoxemic respiratory failure J96.01 COVID-19 U07.1 Hypertension I10 Type 2 diabetes mellitus E11.9
--- NOTE | 2021-06-17 19:10 | PC.NURSE ---
Report received from lizandro RN. Patient is sitting up in the bed watching TV. Patient is breathing quick shallow breaths. Her SpO2 remains in the upper 80's-low 90's. Patient is on heated high flow at 40L and 75%. Educated the patient on taking slow, deep breaths. She demonstrated the breathing and was able to calm her breathing down. Clement catheter noted and is draining well. All vital signs are stable. Patient denies any pain, needs, or requests at this time.
--- NOTE | 2021-06-17 20:10 | PC.NURSE ---
Shift Note Pt remains on heated high f low at 75% and 40 liters at end of this shift. She started the day off stacey O2 lewis, but she was able to settle down after Ativan. She possibly could go to [facility] at anytime this evening depending on transport availability. This was discussed with her this evening, she consented, she started breathing faster during this conversation. Pointed this out to her and she concentrated on slowing down . She was able to use BSC this evening, l are BM. SHe then transferred herself back to the bed instead of the chair, call light use afterwards. She did recover her O2 sats after about an half hour tonight. Urine output is consistent, 350ml this shift. Frequent safety and comfort rounds continue. Orders and/or nursing care completed as indicated. Patient monitored for response to intervention and treatment(s). Education provided includes ongoing breathing techniques, relaxation, etc. . Patient and/or office services representative verbalizes understanding of on going plan of care and medications. Will continue to monitor.
[2021-06-17 20:22] LABS: Glucose Point of Care 231 mg/dL (70-110)
[2021-06-17] MEDS: enoxaparin 40 mg/0.4 mL Syringe SUBCUT (20:30)
--- NOTE | 2021-06-17 21:30 | PC.NURSE ---
Report called to Esperanza Perez RN at [facility] in [place].
--- NOTE | 2021-06-17 23:00 | PC.NURSE ---
EMS at the bedside to transport the patient to [facility] in [place] for watermaster acute care. Patient placed on 100% NRB for transport. Patient tolerating well with SpO2 85-92%. All belongings in the patient's room transferred with her. All vital signs were stable at the time of transport. [facility] called when EMS left to let them know the patient was on her way. Called the patient's daughter, Skyla, to let her know that the patient was transported.
[2021-06-18 00:48] VITALS: BP 136/81; PULSE 94; RESP 28; TEMP 37.5; O2SAT 90
== END 2021-06-17 23:02 | DRG 177 ==
LOC: ER 15:58 → ER IP 17:43 → ICU 20:57
PROVIDERS: Internal Medicine; Admitting Provider Student in an Organized Health Care Education/Training Program; Emergency Provider Emergency Medicine; PCP Family Medicine; Visit Provider Internal Medicine
DX: U07.1 COVID-19 (principal); J12.82 Pneumonia due to coronavirus disease 2019; J96.01 Acute respiratory failure with hypoxia; J15.9 Unspecified bacterial pneumonia; N17.9 Acute kidney failure, unspecified; Z85.42 Personal history of malignant neoplasm of other parts of uterus; I10 Essential (primary) hypertension; E11.65 Type 2 diabetes mellitus with hyperglycemia; E11.42 Type 2 diabetes mellitus with diabetic polyneuropathy; R00.0 Tachycardia, unspecified; Z79.4 Long term (current) use of insulin; Z79.84 Long term (current) use of oral hypoglycemic drugs
CPT/HCPCS: 12345; 36415; 36416; 36600; 51702; 71045; 71275; 80048; 80051; 80053; 80061; 81001; 82009; 82330; 82436; 82550; 82728; 82803; 82805; 82962; 83036; 83520; 83540; 83550; 83605; 83615; 83735; 83880; 84100; 84133; 84145; 84300; 84443; 84484; 85025; 85378; 85384; 85610; 85730; 86140; 86403; 87040; 87070; 87205; 87449; 87641; 87804; 93306; 94640; 94660; 94664; 96365; 96372; 96374; 96375; 97110; 97161; 97530; 99283; 99285; J0696; J1100; J1650; J1815 ×2; J1940; J2060; J2270; J2405; J3262; J3490; J3535; J7030; J7626; Q0144; Q9967

== ENCOUNTER → 2021-09-15 08:45 | Outpatient (BNVA) | payer MEDICARE, SELFPAY | PROVIDERS: PCP Family Medicine; Visit Provider Internal Medicine Critical Care Medicine | DX: U07.1 COVID-19 (principal); J96.11 Chronic respiratory failure with hypoxia; Z87.891 Personal history of nicotine dependence; Z99.81 Dependence on supplemental oxygen; I10 Essential (primary) hypertension; E11.8 Type 2 diabetes mellitus with unspecified complications | CPT/HCPCS: 71046; 99204 ==

== ENCOUNTER 2021-10-11 11:28 | Outpatient (CLI) | payer MEDICARE, SELFPAY ==
--- NOTE | 2021-10-11 13:09 | PFTS_ITS ---
Date of Study:10/11/21 Date of Dictation: 10/17/2021 MECHANICS: Postbronchodilator forced vital capacity (FVC) is reduced 1.18 L 38% predicted Postbronchodilator forced expiratory volume in one second (FEV1) is severely reduced. 1.16 L 47% predicted. FEV1/FVC is normal. There is no significant bronchodilator response. FLOW VOLUME LOOP: Normal. LUNG VOLUMES: Total lung capacity (TLC) is severely reduced. Residual volume (RV) is severely reduced. DIFFUSING CAPACITY FOR CARBON MONOXIDE: Severely reduced 37% INTERPRETATION: The pulmonary function tests are consistent with severe restriction on spirometry with no significant bronchodilator response. Lung volumes are severely reduced. There is severe gas transfer defect. Constellation of findings suggestive of severe interstitial lung disease. Correlate clinically. MTDD
== END 2021-10-11 11:29 | disposition home or self-care (01) ==
PROVIDERS: PCP Family Medicine; Visit Provider Internal Medicine Critical Care Medicine
DX: J96.91 Respiratory failure, unspecified with hypoxia (principal)
CPT/HCPCS: 94060; 94726; 94729; J7611

== ENCOUNTER → 2021-10-17 10:07 | Outpatient (BNVA) | payer MEDICARE, SELFPAY | PROVIDERS: PCP Family Medicine; Visit Provider Internal Medicine Critical Care Medicine | DX: J84.10 Pulmonary fibrosis, unspecified (principal); J96.11 Chronic respiratory failure with hypoxia; U07.1 COVID-19; Z87.891 Personal history of nicotine dependence; I10 Essential (primary) hypertension; E11.8 Type 2 diabetes mellitus with unspecified complications | CPT/HCPCS: 99214 ==

== ENCOUNTER 2022-01-11 15:00 | Outpatient (CLI) | payer MEDICARE, SELFPAY ==
--- NOTE | 2022-01-11 15:30 | CT_ITS ---
WS: [id number] CT CHEST CT-HIGH RESOLUTION, NONCONTRAST. HISTORY: Interstitial lung disease. Technique: High-resolution chest CT is performed in inspiration, expiration, supine and prone [facility]. All CT scans at [facility] use at least one of these dose optimization techniques: automated exposure control; mA and/or kV adjustment per patient size (includes targeted exams where dose is mat ched to clinical indication); or iterative reconstruction. DLP: 2300.65 mGy.cm COMPARISON: 06/04/2021 Findings: Lung volumes appear slightly hyperinflated. There is mild diffuse groundglass attenuation t hroughout both lungs. Overall significant improvement in the aeration with less groundglass attenuati on since 06/04/2021. Curvilinear areas of scarring and fibrosis in the periphery of the upper and lower lung goss. Slightly greater in the lower lung goss. No honeycombing is identified. There is bron chiectasis bilaterally in the upper and lower lung goss. During expiration there is significant dec rease in lung volume. No definite air trapping is identified. On the prone imaging there is no signif icant improvement in the areas of subpleural scarring and thickening. There are a few scattered granulomata. No adenopathy. Mild atherosclerosis aorta. Pulmonary artery is slightly enlarged. Heart size is normal. Small hiatal hernia. No adrenal mass. CT/CT chest con [id number] Impression: 1. Significant improvement in the bilateral groundglass opacifications describ ed on 06/04/2021. 2. Bilateral, upper and lower lobe bronchiectasis. 3. No honeycombing to suggest UIP. 4. Consider NSIP and hypersensitivity pneumonia.
== END 2022-01-11 15:01 | disposition home or self-care (01) ==
PROVIDERS: PCP Family Medicine; Visit Provider Internal Medicine Critical Care Medicine
DX: J84.10 Pulmonary fibrosis, unspecified (principal); J47.9 Bronchiectasis, uncomplicated
CPT/HCPCS: 71250

== ENCOUNTER → 2022-02-03 10:11 | Outpatient (BNVA) | payer MEDICARE, SELFPAY | PROVIDERS: PCP Family Medicine; Visit Provider Family Medicine | DX: E11.9 Type 2 diabetes mellitus without complications (principal); I10 Essential (primary) hypertension | CPT/HCPCS: 80053; 80061; 83036; 84443; 85025 ==

== ENCOUNTER → 2022-02-08 12:42 | Outpatient (BNVA) | payer MEDICARE, SELFPAY | PROVIDERS: PCP Family Medicine; Visit Provider Family Medicine | DX: Z00.00 Encounter for general adult medical examination without abnormal findings (principal) | CPT/HCPCS: 87624 ==

== ENCOUNTER → 2022-05-02 08:50 | Outpatient (BNVA) | payer MEDICARE, SELFPAY | PROVIDERS: PCP Family Medicine; Visit Provider Family Medicine | DX: Z00.00 Encounter for general adult medical examination without abnormal findings (principal); J84.10 Pulmonary fibrosis, unspecified; E11.9 Type 2 diabetes mellitus without complications; I10 Essential (primary) hypertension; E66.01 Morbid (severe) obesity due to excess calories | CPT/HCPCS: 80053; 80061; 83036 ==

== ENCOUNTER → 2022-07-07 11:09 | Outpatient (BNVA) | payer MEDICARE, SELFPAY | PROVIDERS: PCP Family Medicine; Visit Provider Internal Medicine Pulmonary Disease | DX: J96.11 Chronic respiratory failure with hypoxia (principal); U09.9 Post COVID-19 condition, unspecified; Z99.81 Dependence on supplemental oxygen; Z87.891 Personal history of nicotine dependence | CPT/HCPCS: 99214 ==

== ENCOUNTER 2022-08-02 12:44 | Outpatient (CLI) | payer MEDICARE, SELFPAY | END 2022-08-02 12:45 | disposition home or self-care (01) | PROVIDERS: PCP Family Medicine; Visit Provider Internal Medicine Pulmonary Disease | DX: E11.9 Type 2 diabetes mellitus without complications (principal); U07.1 COVID-19; I10 Essential (primary) hypertension; J84.10 Pulmonary fibrosis, unspecified; E66.01 Morbid (severe) obesity due to excess calories | CPT/HCPCS: 94010; 94618; 94726; 94729 ==

== ENCOUNTER → 2022-08-07 08:37 | Outpatient (BNVA) | payer MEDICARE, SELFPAY | PROVIDERS: PCP Family Medicine; Visit Provider Family Medicine | DX: Z00.00 Encounter for general adult medical examination without abnormal findings (principal); E11.9 Type 2 diabetes mellitus without complications; I10 Essential (primary) hypertension; J84.10 Pulmonary fibrosis, unspecified; E66.01 Morbid (severe) obesity due to excess calories; U07.1 COVID-19 | CPT/HCPCS: 80053; 80061; 83036; 84443; 85025 ==

== ENCOUNTER → 2022-08-12 18:50 | Outpatient (BNVA) | payer MEDICARE, SELFPAY | PROVIDERS: PCP Family Medicine; Visit Provider Family Medicine | DX: J02.0 Streptococcal pharyngitis (principal) | CPT/HCPCS: 87071; 87880 ==

== ENCOUNTER 2022-11-01 10:45 | Outpatient (CLI) | payer MEDICARE, SELFPAY ==
--- NOTE | 2022-11-01 10:49 | MM_ITS ---
WS: [id number] SCREENING DIGITAL BREAST TOMOSYNTHESIS MAMMOGRAM WITH CAD HISTORY: Screening COMPARISON: 12/27/2020, 12/17/2019 Bilateral CC and MLO with tomosynthesis and synthetic mammography submitted. Computer aided detection analyzed. Breast composition: There are scattered areas of fibroglandular density. Well-circumscribed 4.6 mm mass in the inferior RIGHT breast near 6-7 o'clock is new since the prior s tudy. There are additional nodules which are stable. Benign calcifications throughout each breast. MM/[id number] IMPRESSION: BI-RADS: 0-Incomplete: Need additional imaging evaluation FOLLOW UP: Need Additional Imaging Recommendation: Follow-up ultrasound RIGHT breast. Evaluate new 4.6 mm nodule 6 -7 o'clock.
== END 2022-11-01 10:46 | disposition home or self-care (01) ==
PROVIDERS: PCP Family Medicine; Visit Provider Family Medicine
DX: Z12.31 Encounter for screening mammogram for malignant neoplasm of breast (principal)
CPT/HCPCS: 77063; 77067

== ENCOUNTER → 2022-11-20 08:07 | Outpatient (BNVA) | payer MEDICARE, SELFPAY | PROVIDERS: PCP Family Medicine; Visit Provider Family Medicine | DX: Z00.00 Encounter for general adult medical examination without abnormal findings (principal); E11.9 Type 2 diabetes mellitus without complications; I10 Essential (primary) hypertension; E66.01 Morbid (severe) obesity due to excess calories | CPT/HCPCS: 80053; 80061; 83036 ==

== ENCOUNTER 2022-11-27 09:57 | Outpatient (CLI) | payer MEDICARE, SELFPAY ==
--- NOTE | 2022-11-27 10:09 | US_ITS ---
WS: [email or web address] ULTRASOUND RIGHT BREAST HISTORY: Follow-up on abnormal mammogram COMPARISON: 11/01/2022 TECHNIQUE: 2-D and Doppler. There is a simple cyst with through transmission at 7:00, 2 cm from the nipple corresponding to the m ammographic abnormality. Cyst measures 4 x 5 x 4 mm. US/US breast RT limited* [id number] IMPRESSION: BI-RADS: 2-Benign FOLLOW-UP: 1 Year Follow-up Return to annual mammographic screening. Benign cyst RIGHT breast.
== END 2022-11-27 09:58 | disposition home or self-care (01) ==
PROVIDERS: PCP Family Medicine; Visit Provider Family Medicine
DX: R92.8 Other abnormal and inconclusive findings on diagnostic imaging of breast (principal); N60.01 Solitary cyst of right breast
CPT/HCPCS: 76642

== ENCOUNTER → 2023-02-19 08:46 | Outpatient (BNVA) | payer MEDICARE, SELFPAY | PROVIDERS: PCP Family Medicine; Visit Provider Family Medicine | DX: Z00.00 Encounter for general adult medical examination without abnormal findings (principal); E11.9 Type 2 diabetes mellitus without complications; E66.01 Morbid (severe) obesity due to excess calories; U07.1 COVID-19 | CPT/HCPCS: 80053; 80061; 83036; 84443 ==

== ENCOUNTER → 2023-02-22 10:39 | Outpatient (BNVA) | payer MEDICARE, SELFPAY | PROVIDERS: PCP Family Medicine; Visit Provider Family Medicine | DX: D64.9 Anemia, unspecified (principal); Z00.00 Encounter for general adult medical examination without abnormal findings | CPT/HCPCS: 82607; 85025 ==

== ENCOUNTER 2023-04-19 08:47 | Outpatient (RCR) | payer MEDICARE, SELFPAY | END 2023-05-03 23:59 | disposition home or self-care (01) | LOC: PULRHB 08:47 | PROVIDERS: PCP Family Medicine; Visit Provider Internal Medicine Pulmonary Disease | DX: J44.9 Chronic obstructive pulmonary disease, unspecified (principal) | CPT/HCPCS: G0239 ==

== ENCOUNTER 2023-05-04 06:00 | Outpatient (RCR) | payer MEDICARE, SELFPAY | END 2023-06-03 23:59 | disposition home or self-care (01) | LOC: PULRHB 06:00 | PROVIDERS: PCP Family Medicine; Visit Provider Internal Medicine Pulmonary Disease | DX: J44.9 Chronic obstructive pulmonary disease, unspecified (principal) | CPT/HCPCS: G0239 ==

== ENCOUNTER → 2023-05-14 08:29 | Outpatient (BNVA) | payer MEDICARE, SELFPAY | PROVIDERS: PCP Family Medicine; Visit Provider Internal Medicine Pulmonary Disease | DX: U09.9 Post COVID-19 condition, unspecified (principal); Z87.891 Personal history of nicotine dependence; J96.91 Respiratory failure, unspecified with hypoxia; Z09 Encounter for follow-up examination after completed treatment for conditions other than malignant neoplasm | CPT/HCPCS: 99214 ==

== ENCOUNTER → 2023-05-15 09:35 | Outpatient (BNVA) | payer MEDICARE, SELFPAY | PROVIDERS: PCP Family Medicine; Visit Provider Family Medicine | DX: R53.83 Other fatigue; E10.9 Type 1 diabetes mellitus without complications; R79.89 Other specified abnormal findings of blood chemistry | CPT/HCPCS: 80053; 80061; 82607; 83036; 84443 ==

== ENCOUNTER 2023-05-25 14:20 | Outpatient (CLI) | payer MEDICARE, SELFPAY ==
--- NOTE | 2023-05-25 14:30 | XR_ITS ---
WS: [email or web address] SCREENING DEXA SCAN JANZZ CLINICAL INFORMATION: screening, hx of chemo COMPARISON: 09/11/2017 FINDINGS: The L1-L4 bone mineral density measures 1.318 g/cm2. This corresponds to a T score score of 1.2 and Z score of 2.1. Left femoral neck bone mineral density measures 1.118 g/cm2. This corresponds to a T score of 0.9 and Z score of 1.7. Right femoral neck bone mineral density measures 1.132 g/cm2. This corresponds to a T score 1.0of and Z score of 1.8. Mean femoral neck bone mineral density measures 1.125 g/cm2. This corresponds to a T score of 0.9 and Z score of 1.7. IMPRESSION: Normal bone mineralization. Patient's FRAX calculated 10 year probability for major osteoporotic fracture is 6.2% and osteoporoti c hip fracture is 0.2%. Bone mineral density lumbar spine decreased -2.1% Bone mineral density femoral necks decreased -6.6%
== END 2023-05-25 14:21 | disposition home or self-care (01) ==
PROVIDERS: PCP Family Medicine; Visit Provider Family Medicine
DX: Z13.820 Encounter for screening for osteoporosis (principal); Z92.21 Personal history of antineoplastic chemotherapy
CPT/HCPCS: 77080

== ENCOUNTER 2023-06-04 06:00 | Outpatient (RCR) | payer MEDICARE, SELFPAY | END 2023-07-04 23:59 | disposition home or self-care (01) | LOC: PULRHB 06:00 | PROVIDERS: PCP Family Medicine; Visit Provider Internal Medicine Pulmonary Disease | DX: J44.9 Chronic obstructive pulmonary disease, unspecified (principal) | CPT/HCPCS: 94625; G0239 ==

== ENCOUNTER 2023-07-05 06:00 | Outpatient (RCR) | payer MEDICARE, SELFPAY | END 2023-08-02 23:59 | disposition home or self-care (01) | LOC: PULRHB 06:00 | PROVIDERS: PCP Family Medicine; Visit Provider Internal Medicine Pulmonary Disease | DX: J44.9 Chronic obstructive pulmonary disease, unspecified (principal) | CPT/HCPCS: 94625; G0239 ==

== ENCOUNTER 2023-08-03 06:00 | Outpatient (RCR) | payer MEDICARE, SELFPAY | END 2023-09-02 23:59 | disposition home or self-care (01) | LOC: PULRHB 06:00 | PROVIDERS: PCP Family Medicine; Visit Provider Internal Medicine Pulmonary Disease | DX: J44.9 Chronic obstructive pulmonary disease, unspecified (principal) | CPT/HCPCS: 94625 ==

== ENCOUNTER → 2023-08-24 08:31 | Outpatient (BNVA) | payer MEDICARE, SELFPAY | PROVIDERS: PCP Family Medicine; Visit Provider Family Medicine | DX: E11.9 Type 2 diabetes mellitus without complications (principal); I10 Essential (primary) hypertension; R53.83 Other fatigue; R73.03 Prediabetes | CPT/HCPCS: 80053; 80061; 82607; 83036; 84443 ==

== ENCOUNTER → 2023-11-22 08:55 | Outpatient (BNVA) | payer MEDICARE, SELFPAY | PROVIDERS: PCP Family Medicine; Visit Provider Family Medicine | DX: E11.9 Type 2 diabetes mellitus without complications (principal); I10 Essential (primary) hypertension; R73.03 Prediabetes; Z79.899 Other long term (current) drug therapy | CPT/HCPCS: 80053; 80061; 83036 ==

== ENCOUNTER 2024-01-24 11:06 | Outpatient (CLI) | payer MEDICARE, SELFPAY ==
--- NOTE | 2024-01-24 11:14 | MM_ITS ---
WS: [email or web address] BILATERAL SCREENING DIGITAL TOMOSYNTHESIS MAMMOGRAM WITH CAD HISTORY: SCREENING COMPARISON: 11/01/2022, 12/27/2020 Bilateral CC and MLO views with tomosynthesis and synthetic mammography submitted. Computer aided det ection analyzed. Breast composition: There are scattered areas of fibroglandular density. No suspicious masses, microc alcifications or architectural distortion. Scattered asymmetries, nodules and calcifications are stab le. MM/[id number] IMPRESSION: BI-RADS: 2-Benign FOLLOW UP: 1 Year Follow-up
== END 2024-01-24 11:07 | disposition home or self-care (01) ==
LOC: RAD 11:07
PROVIDERS: PCP Family Medicine; Visit Provider Family Medicine
DX: Z12.31 Encounter for screening mammogram for malignant neoplasm of breast (principal); R92.323 Mammographic fibroglandular density, bilateral breasts
CPT/HCPCS: 77063; 77067

== ENCOUNTER → 2024-05-05 10:30 | Outpatient (BNVA) | payer MEDICARE, SELFPAY | PROVIDERS: PCP Family Medicine; Visit Provider Family Medicine | DX: I10 Essential (primary) hypertension (principal); E11.9 Type 2 diabetes mellitus without complications; E66.01 Morbid (severe) obesity due to excess calories | CPT/HCPCS: 80053; 80061; 83036; 84443; 85025 ==

== ENCOUNTER → 2024-05-06 10:07 | Outpatient (BNVA) | payer MEDICARE, SELFPAY | PROVIDERS: PCP Family Medicine; Visit Provider Family Medicine | DX: Z78.9 Other specified health status (principal) | CPT/HCPCS: 87624 ==

== ENCOUNTER 2024-06-30 | Emergency (ER) | payer MEDICARE, SELFPAY ==
[2024-06-30 00:11] VITALS: BP 174/89; PULSE 93; RESP 20; TEMP 36.4; O2SAT 93
--- NOTE | 2024-06-30 00:21 | XRR_ITS ---
PROCEDURE INFORMATION: Exam: XR Chest Exam date and time: 06/30/2024 12:23 AM Age: 68 years old Clinical indication: Shortness of breath; Patient HX: SOB due to allergic reaction TECHNIQUE: Imaging protocol: Radiologic exam of the chest. Views: 1 view. COMPARISON: CT chest con [id number] 01/11/2022 3:31 PM FINDINGS: Lungs: Granuloma right mid lung. Pleural spaces: Unremarkable. No pleural effusion. No pneumothorax. Heart/Mediastinum: Borderline cardiomegaly. Bones/joints: Unremarkable. XR/XR chest 1V portable [id number] IMPRESSION: No acute findings.
[2024-06-30] MEDS: famotidine 20 mg/2 mL INJ IVP (00:26)
[2024-06-30] MEDS: diphenhydrAMINE 50 mg/mL SDV 1mL IVP (00:27)
[2024-06-30] MEDS: methylPREDNISolone sod succ 125 mg/2 mL INJ 80 MG IVP (00:27)
[2024-06-30] MEDS: EPINEPHrine 1 mg/mL INJ 0.3 MG IM (00:28)
[2024-06-30 00:39] LABS: Basophils # 0.1 10^3/uL (0.0-0.1); Eosinophils # 0.2 10^3/uL (0.0-0.8); Eosinophils % 2.4 %; Hematocrit 48.9 % (36-47); Lymphocytes # 3.4 10^3/uL (0.8-4.8); Lymphocytes % 40.6 %; Mean Corpuscular HGB Conc 32.3 g/dL (30-55); Mean Corpuscular Hemoglobin 29.3 pg (27-33); Mean Corpuscular Volume 90.6 fl (85-98); Mean Platelet Volume 8.9 fL (7.4-10.4); Monocytes # 0.8 10^3/uL (0.2-0.9); Monocytes % 9.2 %; Neutrophils # 3.88 10^3/uL (1.8-7.7); Neutrophils % 46.6 %; Nucleated Red Blood Cells % 0 %; Platelet Count 209 10^3/cmm (157-399); Red Cell Distribution Width 12.5 % (12.1-15.1); White Blood Count 8.34 10^3/uL (3.29-11.43)
--- NOTE | 2024-06-30 00:44 | ED_ITS ---
HPI - Allergic Reaction 2 General: Chief complaint: Allergic Reaction Stated complaint: Allergic Reaction\Tounge Swelling Time Seen by Provider: 06/30/24 00:17 History of Present Illness: HPI narrative: 68-year-old female who was in bed [facility] in the evening when her hands and forearms began to get itchy. She felt sick to her stomach. She had some cramping. She then felt that her tongue was full, and it was harder to swallow. She decided at this point, the hospital. She has not had this type of reaction before. She did not take anything at home. No new medications, foods, detergents, etc. she had not been burning any kind of rash yesterday. Related Data Home Medications Medication Instructions Recorded Confirmed cholecalciferol (vitamin D3) 125 125 mcg PO DAILY 09/15/21 05/06/24 mcg (5,000 unit) capsule coenzyme [id number] 100 mg-100 cap PO 09/15/21 05/06/24 unit capsule famotidine 20 mg tablet 20 mg PO DAILY 09/15/21 05/06/24 loratadine 10 mg tablet (Allergy 10 mg PO DAILY 09/15/21 05/06/24 Relief (loratadine)) aspirin 81 mg tablet,delayed 81 mg PO .twice weekly 07/07/22 05/06/24 release (Adult Aspirin Regimen) multivitamin with folic acid 400 1 tab PO DAILY 11/15/22 05/06/24 mcg tablet (One Daily Multivitamin) Previous Rx's Medication Instructions Recorded lancets 33 gauge (OneTouch Delica #100 ea 04/06/22 Plus Lancet) Oxygen 2L at night #1 ea 10/18/22 albuterol sulfate 90 mcg/actuation 2 inh inhalation Q6H PRN shortness 05/14/23 aerosol inhaler of breath or wheezing #8 grams promethazine-DM 6.25 mg-15 mg/5 mL 5 ml PO Q6H PRN cough #118 mL 06/19/23 oral syrup lisinopril 10 mg tablet See Rx Instructions .Route 08/17/23 .COMPLEX #180 tabs pen needle, diabetic, safety 32 #100 ea 08/17/23 gauge x 5/32 insulin glargine 100 unit/mL (3 45 unit (0.45 mL) SUBCUT QAM #45 mL 11/02/23 mL) subcutaneous pen (Lantus Solostar U-100 Insulin) furosemide 40 mg tablet 40 mg PO DAILY PRN edema #30 tabs 11/27/23 levothyroxine 88 mcg tablet 88 mcg PO DAILY #90 tabs 11/27/23 blood sugar diagnostic (OneTouch #100 ea 05/06/24 Ultra Test strips) glimepiride 4 mg tablet See Rx Instructions .Route 05/06/24 .COMPLEX #120 tabs nirmatrelvir 300 mg (150 mg See Rx Instructions PO .COMPLEX 05/06/24 x2)-ritonavir 100 mg tablet,dose #30 tabs pack (Paxlovid) pseudoephedrine HCl 30 mg tablet See Rx Instructions .Route 05/06/24 (Sudogest) .COMPLEX #90 tabs flash glucose sensor (FreeStyle #1 kit 06/03/24 Annie 2 Sensor kit) flash glucose sensor (FreeStyle #1 kit 06/03/24 Annie 2 Sensor kit) Allergies Allergy/AdvReac Type Severity Reaction Status Date / Time pioglitazone [From Actos] Allergy Intermediate edema, Verified 05/14/23 08:49 bloating, jaw pain neomycin Allergy Unknown Verified 05/14/23 08:49 erythromycin base AdvReac Intermediate Unknown Verified 03/31/24 16:04 metformin AdvReac Intermediate diarrhea, Verified 05/14/23 08:49 muscle pain PFS ED 2 PFSH: Medical History COVID-19 Morbid obesity Anxiety disorder Endometrial cancer Type 2 diabetes mellitus Hypertension COVID-19 Surgical History H/O bilateral salpingo-oophorectomy S/P total abdominal hysterectomy Social History Smoking and tobacco/nicotine status: unknown if used tobacco/nicotine Quit status (tobacco/nicotine): has quit using Former quit date comment: 1 ppd X 3 years, 35 years ago Alcohol intake: never Substance/Drug Use: never Household members: spouse Housing: House Marital status: Physical Exam 2 Const: GENERAL APPEARANCE: cooperative; not ill appearing and not frail appearing HENMT: COMMON NORMALS: normocephalic, atraumatic and Normal external nose present HEAD & SCALP: normocephalic and atraumatic FACE & SINUS: normal facial exam and face symmetric NOSE: Normal external nose present MOUTH: t ongue normal Eye: COMMON NORMALS: Equal, round and reactive pupils present and EOMs intact bilaterally PUPIL: Yes Equal, round and reactive pupils present Neck/C-Spine: GENERAL: Yes trachea midline Chest: CHEST: Yes Symmetrical chest wall rise Resp: COMMON NORMALS: normal respiratory effort, No retractions, No use of accessory muscles and clear to auscultation bilaterally AUSCULTATION: clear to auscultation bilaterally Cardio: COMMON NORMALS: regular rhythm RATE: tachycardic RHYTHM: regular rhythm GI: COMMON NORMALS: Normal to inspection, nondistended, normoactive bowel sounds present Extremity: COMMON NORMALS: no pedal edema Neuro: MANDY COMA SCALE: document GCS findings [place] coma scale eye opening: Spontaneous Mandy coma scale verbal response: Orientated Mandy coma scale motor response: Obey commands Mandy coma scale total score: 15 S ENSORY EXAM: Yes extremities (intact) Psych: COMMON NORMALS: speech normal SPEECH: Yes normal speech Skin: NARRATIVE SKIN EXAM: Urticaria to upper extremities greater than lower extremities, and across her trunk. Course 2 Vital Signs: Vital signs: Vital Signs Temperature 97.5 F L 06/30/24 00:11 Pulse Rate 79 06/30/24 02:33 Respiratory Rate 20 H 06/30/24 00:11 Blood Pressure 161/78 06/30/24 02:33 Pulse Oximetry 94 06/30/24 02:33 Oxygen Delivery Me thod Room Air 06/30/24 00:11 MDM - Allergic Reaction Medical Decision Making Tongue appears normal, but feels swollen to the patient. She is given epinephrine, Solu-Medrol, Benadryl, Pepcid. Chest x-ray is nonacute. CBC is normal. Other laboratories benign. She is feeling much better. No signs of rebound. She is walked in the ER without problems. Her rash is gone. Her tongue feels better. She will be discharged. Will not use steroids due to history of diabetes. Will place her on famotidine and Benadryl for the next 48 hours. She is advised to consider stopping her lisinopril, although with presence of urticaria, rash, and itching, this is much less likely a cause of her symptoms. Lab Data 06/30/24 00:33 06/30/24 00:33 Radiology Impressions Chest X-Ray 06/30/24 00:21 IMPRESSION: No acute findings. Laboratory Results WBC 8.34 10^3/uL (3.29-11.43) 06/30/24 00:33 RBC 5.40 10^6/uL (3.85-5.65) 06/30/24 00:33 Hgb 15.80 g/dL (11.27-16.99) 06/30/24 00:33 Hct 48.9 % (36-47) H 06/30/24 00:33 MCV 90.6 fl (85-98) 06/30/24 00:33 MCH 29.3 pg (27-33) 06/30/24 00:33 MCHC 32.3 g/dL (30-55) 06/30/24 00:33 RDW 12.5 % (12.1-15.1) 06/30/24 00:33 Plt Count 209 10^3/cmm (157-399) 06/30/24 00:33 MPV 8.9 fL (7.4-10.4) 06/30/24 00:33 Neut % (Auto) 46.6 % 06/30/24 00: Lymph % (Auto) 40.6 % 06/30/24 00:33 [place] % (Auto) 9.2 % 06/30/24 00:33 Eos % (Auto) 2.4 % 06/30/24 00: Baso % (Auto) 1.0 % 06/30/24 00: Neut # (Auto) 3.88 10^3/uL (1.8-7.7) 06/30/24 00:33 Lymph # (Auto) 3.4 10^3/uL (0.8-4.8) 06/30/24 00:33 [place] # (Auto) 0.8 10^3/uL (0.2-0.9) 06/30/24 00:33 Eos # (Auto) 0.2 10^3/uL (0.0-0.8) 06/30/24 00:33 Baso # (Auto) 0.1 10^3/uL (0.0-0.1) 06/30/24 00:33 Nucleated RBC % (auto) 0 % 06/30/24 00:33 Nucleated RBCs # 0.0 /100WBC 06/30/24 00:33 Sodium 139 mmol/L (136-145) 06/30/24 00:33 Potassium 4.2 mmol/L (3.5-5.1) 06/30/24 00:33 Chloride 99 mmol/L (98-107) 06/30/24 00:33 Carbon Dioxide 24 mmol/L (22-29) 06/30/24 00:33 Anion Gap 20.2 (5-19) H 06/30/24 00:33 BUN 22 mg/dL (8-23) 06/30/24 00:33 Creatinine 1.1 mg/dL (0.5-0.9) H 06/30/24 00:33 GFR Calculation 49.4 mL/min (90-130) L 06/30/24 00:33 Glucose 202 mg/dL (65-115) H 06/30/24 00:33 Calculated Osmolality 297 mOsm/kg (285-295) H 06/30/24 00:33 Calcium 9.4 mg/dL (8.5-10.5) 06/30/24 00:33 Total Bilirubin 0.4 mg/dL (0.15-1.2) 06/30/24 00:33 AST 18 U/L (0-32) 06/30/24 00:33 ALT 19 U/L (0-33) 06/30/24 00:33 Alkaline Phosphatase 76 U/L (35-105) 06/30/24 00:33 Total Protein 6.9 g/dL (6.6-8.7) 06/30/24 00:33 Albumin 4.5 g/dL (3.5-5.2) 06/30/24 00:33 Globulin 2.4 g/dL (1.3-4.6) 06/30/24 00:33 Urine Color Yellow (Yellow) 06/30/24 01:18 Urine Appearance Cloudy (CLEAR) A 06/30/24 01:18 Urine pH 5.5 (5-7) 06/30/24 01:18 Ur Specific [place] 1.028 (1.005-1.030) 06/30/24 01:18 Urine Protein 1+ (Negative) A 06/30/24 01:18 Urine Glucose (UA) Trace (Normal) H 06/30/24 01:18 Urine Ketones Trace (Negative) 06/30/24 01:18 Urine Blood Negative (Negative) 06/30/24 01:18 Urine Nitrate Negative (Negative) 06/30/24 01:18 Urine Bilirubin Negative (Negative) 06/30/24 01:18 Urine Urobilinogen 1.0 mg/dL (Negative) 06/30/24 01:18 Ur Leukocyte Esterase 2+ (Negative) A 06/30/24 01:18 Urine RBC 6-10 /hpf (0-2) 06/30/24 01:18 Urine WBC >100 /hpf (0-5) H 06/30/24 01:18 Ur Squamous Epith Cells 0-5 /hpf (0-5) 06/30/24 01:18 Calcium Oxalate Crystal 5-10 /hpf H 06/30/24 01:18 Amorphous Sediment Not Reportable 06/30/24 01:18 Urine Bacteria 3+ /hpf (NONE) H 06/30/24 01:18 Hyaline Casts 7.85 /lpf 06/30/24 01:18 All radiology interpretation(s) finalized by discharge Discharge Plan Discharge Patient Disposition: Home Clinical Impression: Anaphylactoid reaction Condition: Stable Prescriptions: No Action albuterol sulfate 90 mcg/actuation HFA aerosol inhaler 2 inh INHALATION Q6H PRN (Reason: shortness of breath or wheezing) Qty: 8 0RF furosemide 40 mg tablet 40 mg PO DAILY PRN (Reason: edema) Qty: 30 11RF levothyroxine 88 mcg tablet 88 mcg PO DAILY Qty: 90 3RF Paxlovid 300 mg (150 mg x 2)-100 mg tablets,dose pack See Rx Instructions PO .COMPLEX Qty: 30 0RF Rx Instructions: take TWO 150 mg tablets of nirmatrelvir with ONE 100 mg tablet of ritonavir twice daily for 5 days PO pseudoephedrine HCl [Sudogest] 30 mg tablet See Rx Instructions .ROUTE .COMPLEX Qty: 90 3RF Dose Instruction: TAKE 1 TABLET BY MOUTH 4 TIMES DAILY NEEDED Rx Instructions: TAKE 1 TABLET BY MOUTH 4 TIMES DAILY NEEDED (DME) OneTouch Ultra Test Strip See Rx Instructions .ROUTE .COMPLEX Qty: 100 3RF Dose Instruction: USE 1 STRIP TO CHECK GLUCOSE ONCE DAILY NEEDED Rx Instructions: USE 1 STRIP TO CHECK GLUCOSE ONCE DAILY NEEDED glimepiride 4 mg tablet See Rx Instructions .ROUTE .COMPLEX Qty: 120 11RF Dose Instruction: Take 1/2 (one-half) tablet by mouth twice daily Rx Instructions: Take 1 in AM and 1/2 tablet in PM loratadine [Allergy Relief (loratadine)] 10 mg tablet 10 mg PO DAILY famotidine 20 mg tablet 20 mg PO DAILY cholecalciferol (vitamin D3) 125 mcg (5,000 unit) capsule 125 mcg PO DAILY coenzyme [id number] 100-100 mg-unit capsule PO aspirin [Adult Aspirin Regimen] 81 mg tablet,delayed release (DR/EC) 81 mg PO .twice weekly multivitamin with folic acid [One Daily Multivitamin] 400 mcg tablet 1 tab PO DAILY promethazine-DM 6.25-15 mg/5 mL syrup 5 ml PO Q6H PRN (Reason: cough) Qty: 118 2RF (DME) lancets [OneTouch Delica Plus Lancet] 33 gauge misc See Rx Instructions .ROUTE .COMPLEX Qty: 100 3RF Dose Instruction: USE 1 TO CHECK GLUCOSE ONCE DAILY NEEDED Rx Instructions: USE 1 TO CHECK GLUCOSE ONCE DAILY NEEDED (DME) Oxygen 2L at night See Rx Instructions .Route .MEDSUPPLY Qty: 1 0RF Rx Instructions: As directed lisinopril 10 mg tablet See Rx Instructions .ROUTE .COMPLEX Qty: 180 3RF Dose Instruction: TAKE 1 TABLET BY MOUTH TWICE DAILY Rx Instructions: TAKE 1 TABLET BY MOUTH TWICE DAILY (DME) pen needle, diabetic, safety 32 gauge x 5/32 needle See Rx Instructions .Route Qty: 100 3RF Rx Instructions: once a day. - use relion brand 4mmx32 gauge insulin glargine [Lantus Solostar U-100 Insulin] 100 unit/mL (3 mL) insulin pen 45 unit SUBCUT QAM Qty: 45 11RF (DME) FreeStyle Annie 2 Sensor Kit See Rx Instructions .ROUTE .COMPLEX Qty: 1 11RF Dose Instruction: USE DIRECTED CHANGE EVERY 14 DAYS Rx Instructions: USE DIRECTED CHANGE EVERY 14 DAYS (DME) FreeStyle Annie 2 Sensor Kit See Rx Instructions .ROUTE .COMPLEX Qty: 1 11RF Dose Instruction: USE DIRECTED CHANGE EVERY 14 DAYS Rx Instructions: USE DIRECTED CHANGE EVERY 14 DAYS Discharge Orders: Discharge ED (Routine); Ordered 06/30/24 Ordered By: Ariel Morrow Referrals: Anthony Hugo MD [Primary Care Provider] - 1-3 days Patient Instructions: Anaphylaxis (ED), Opioid Safety, Pain Management Activity Restrictions/Additional Instructions: Consider stopping your lisinopril, as it is potentially a cause, although not likely. Check your blood pressure, and ask your doctor if a different medication may be needed. Take Benadryl, 25 mg 3 times daily for the next 48 hours [id number]. Take your famotidine 20 mg twice daily for the next 48 hours as well. Return for increasing swelling of the tongue, return of the rash, any other concerning symptoms. See your doctor this week. Coding Level of Care Code ED [employer] for [employer]
[2024-06-30 01:00] LABS: Alanine Aminotransferase 19 U/L (0-33); Albumin Level 4.5 g/dL (3.5-5.2); Alkaline Phosphatase 76 U/L (35-105); Blood Urea Nitrogen 22 mg/dL (8-23); Calcium 9.4 mg/dL (8.5-10.5); Carbon Dioxide 24 mmol/L (22-29); Chloride 99 mmol/L (98-107); Creatinine Clr Calc Pharmacy 53.7667; Globulin 2.4 g/dL (1.3-4.6); Glomerular Filtration Rate 49.4 mL/min (90-130); Glucose 202 mg/dL (65-115); Osmolality Calculated 297 mOsm/kg (285-295); Sodium 139 mmol/L (136-145); Total Bilirubin 0.4 mg/dL (0.15-1.2); Total Protein 6.9 g/dL (6.6-8.7)
[2024-06-30 01:03] LABS: Anion Gap 20.2 (5-19); Aspartate Amino Transferase 18 U/L (0-32); Potassium 4.2 mmol/L (3.5-5.1)
[2024-06-30] MEDS: metoprolol tartrate 1 mg/1 mL SDV 5 mL 5 MG IVP (01:10)
[2024-06-30 01:23] LABS: Bilirubin Urine Negative (Negative); Blood Urine Negative (Negative); Glucose Urine UA Trace (Normal); Ketones Urine Trace (Negative); Leukocyte Esterase Urine 2+ (Negative); Nitrate Urine Negative (Negative); Protein Urine 1+ (Negative); Specific Gravity, Urine 1.028 (1.005-1.030); Urine Appearance Cloudy (CLEAR); Urine Color Yellow (Yellow); pH Urine 5.5 (5-7)
[2024-06-30 01:28] LABS: Add Urine Microscopic? YES; Hyaline Casts Urine 7.85 /lpf; Squamous Epithelial Cell Urine 0-5 /hpf (0-5); Universal Test for UA Present (0); WBC Urine >100 /hpf (0-5)
[2024-06-30 01:37] LABS: Add Urine Culture? Yes; Bacteria Urine 3+ /hpf
[2024-06-30 02:33] VITALS: BP 161/78; PULSE 79; O2SAT 94
== END 2024-06-30 02:34 | disposition home or self-care (01) ==
PROVIDERS: Emergency Provider Emergency Medicine; PCP Family Medicine
DX: T78.2XXA Anaphylactic shock, unspecified, initial encounter (principal); X58.XXXA Exposure to other specified factors, initial encounter; Z79.82 Long term (current) use of aspirin; Z79.4 Long term (current) use of insulin; Z87.891 Personal history of nicotine dependence; E11.9 Type 2 diabetes mellitus without complications; I10 Essential (primary) hypertension; C54.1 Malignant neoplasm of endometrium
CPT/HCPCS: 36415; 71045; 80053; 81001; 85025; 87086; 96372; 96374; 96375; 99284; J0171; J1200; J2919; J3490

== ENCOUNTER → 2024-08-04 08:34 | Outpatient (BNVA) | payer MEDICARE, SELFPAY | PROVIDERS: PCP Family Medicine; Visit Provider Family Medicine | DX: R73.03 Prediabetes (principal); I10 Essential (primary) hypertension; R53.83 Other fatigue | CPT/HCPCS: 80053; 80061; 83036; 84443; 85025 ==

== ENCOUNTER → 2024-12-12 08:27 | Outpatient (BNVA) | payer MEDICARE, SELFPAY | PROVIDERS: PCP Family Medicine; Visit Provider Family Medicine | DX: E11.9 Type 2 diabetes mellitus without complications (principal); I10 Essential (primary) hypertension; E66.01 Morbid (severe) obesity due to excess calories | CPT/HCPCS: 80053; 80061; 83036 ==

== ENCOUNTER 2025-01-26 12:20 | Outpatient (CLI) | payer MEDICARE, SELFPAY ==
--- NOTE | 2025-01-26 12:27 | MM_ITS ---
WS: [email or web address] BILATERAL 3D TOMOSYNTHESIS DIGITAL SCREENING MAMMOGRAPHY WITH CAD CLINICAL INFORMATION: SCREENING HISTORY: Screening mammogram. No current complaints. COMPARISON: 2023 TECHNIQUE: Bilateral CC and MLO views. FINDINGS: Scattered fibroglandular densities bilaterally. No suspicious focal mass, asymmetry, calcifications, or architectural distortion. No evidence of malignancy. Incidental punctate and secretory calcifications. MM/MM scr tomosynthesis [id number] IMPRESSION: DENSITY: There are scattered areas of fibroglandular density. BI-RADS: 2 - Benign. FOLLOW UP: 1 Year Follow-up Recommend return to annual screening mammography.
== END 2025-01-26 12:21 | disposition home or self-care (01) ==
LOC: RAD 12:22
PROVIDERS: PCP Family Medicine; Visit Provider Family Medicine
DX: Z12.31 Encounter for screening mammogram for malignant neoplasm of breast (principal); R92.323 Mammographic fibroglandular density, bilateral breasts; R92.1 Mammographic calcification found on diagnostic imaging of breast
CPT/HCPCS: 77063; 77067

== ENCOUNTER → 2025-05-05 09:24 | Outpatient (BNVA) | payer MEDICARE, SELFPAY | PROVIDERS: PCP Family Medicine; Visit Provider Family Medicine | DX: U07.1 COVID-19 (principal); I10 Essential (primary) hypertension; E11.9 Type 2 diabetes mellitus without complications | CPT/HCPCS: 80053; 83036; 84443; 85025 ==

== ENCOUNTER → 2025-06-02 12:14 | Outpatient (BNVA) | payer MEDICARE, SELFPAY | PROVIDERS: PCP Family Medicine; Visit Provider Family Medicine | DX: J06.9 Acute upper respiratory infection, unspecified (principal) | CPT/HCPCS: 87400; 87426 ==